=== PATIENT | male | born 1995 | race Native Hawaiian/Other Pacific Islander ===

== ENCOUNTER → 2017-12-23 14:49 | Outpatient (CLI) | payer OTHER, SELFPAY ==
[2017-12-23 15:34] LABS: Hemoglobin A1C% w Est Avg Glu 5.2 % (4.0-6.0)
[2017-12-23 15:46] LABS: Alanine Aminotransferase 49 IU/L (21-72); Albumin 4.7 g/dL (3.5-5.0); Albumin Globulin Ratio 1.6 (1.0-2.8); Alkaline Phosphatase 61 U/L (38-126); Aspartate Aminotransferase 45 IU/L (17-59); Bilirubin Total 0.9 mg/dL (0.2-1.3); Blood Urea Nitrogen 12 mg/dL (9-20); Calcium 9.6 mg/dL (8.4-10.2); Carbon Dioxide 27 mmol/L (22-32); Chloride 103 mmol/L (98-107); Cholesterol 183 mg/dL (140-199); Estimated Glomerular Filt Rate > 60.0 mL/min (>60); Glucose 114 mg/dL (70-100); HDL Cholesterol 39 mg/dL (40-60); HEMOLYSIS 18 (0-50); Potassium 4.5 mmol/L (3.4-5.1); Sodium 143 mmol/L (137-145); Total Protein 7.7 g/dL (6.3-8.2)
[2017-12-23 15:53] LABS: Triglycerides 604 mg/dL (35-150)
[2017-12-23 16:16] LABS: Thyroid Stimulating Hormone 1.66 uIU/mL (0.47-4.68)
[2017-12-23 17:50] LABS: Creatinine Urine Random 231.8 mg/dL
[2017-12-23 17:54] LABS: Microalbumi Creatinin Ratio Ur 12.9 ug/mg CR (<30)
== END ==
PROVIDERS: PCP Family Medicine; Visit Provider Registered Nurse
DX: I10 Essential (primary) hypertension (principal); E66.9 Obesity, unspecified
CPT/HCPCS: 36415; 80053; 80061; 82043; 82570; 83036; 84443

== ENCOUNTER 2018-02-21 13:00 | Emergency (ER) | payer OTHER, SELFPAY ==
[2018-02-21 13:46] VITALS: BP 140/92; PULSE 90; RESP 14; TEMP 36.9; O2SAT 99; BMI 36.8
--- NOTE | 2018-02-21 13:49 | DI.RAD.S_ITS ---
PROCEDURE: XR FOOT LT MIN 3V INDICATIONS: atraumatic left foot pain. TECHNIQUE: 3 views of the foot were acquired. COMPARISON: None. FINDINGS: Bones: No fractures or dislocations. No suspicious bony lesions. Soft tissues: No tibiotalar joint effusion. Achilles tendon appears normal. IMPRESSION: No acute fracture. No osseous lesion. If symptoms and/or clinical suspicion for pathology persist, further assessment with repeat, or advanced imaging (e.g., CT, MRI, or bone scan) may be helpful for further assessment. Dictated by: Jarad Lee M.D. on 02/21/2018 at 14:12 Approved by: Jarad Lee M.D. on 02/21/2018 at 14:13
--- NOTE | 2018-02-21 14:11 | PC.NURSE ---
worsening lt dorsal foot pain worse with weight bearing or dorsal flexion distal cms itnact mild swelling without erythema/tenderness denies injury
--- NOTE | 2018-02-21 14:29 | ED.EXTPRO ---
HPI - Extremity Problem <Twila Najera PA-C - Last Filed: 02/21/18 20:45> General Chief complaint: Extremity Problem,Nontraumatic Stated complaint: SWOLLEN LEFT FOOT Time Seen by Provider: 02/21/18 14:19 Source: patient Mode of arrival: ambulatory Limitations: no limitations History of Present Illness HPI Narrative: This 22-year-old male complains of left foot pain after spending more than usual time on a ladder. He does this routinely, states for the last few weeks he has been spending more time there and tends to stand or hang from that foot. He denies any acute injury, fall, or specific work related injury, but pain has been worse for the last couple of days, not improved with Tylenol. He denies any other pain or other complaints today. Related Data Home Medications Medication Instructions Recorded Confirmed No Known Home Medications 02/21/18 02/21/18 Allergies Allergy/AdvReac Type Severity Reaction Status Date / Time No Known Drug Allergies Allergy Verified 02/21/18 13:49 Review of Systems <Twila Najera PA-C - Last Filed: 02/21/18 20:45> Review of Systems All systems reviewed & are unremarkable except as noted in HPI and below Exam <Twila Najera PA-C - Last Filed: 02/21/18 20:45> Narrative Exam Narrative: GENERAL APPEARANCE: Patient sitting comfortably, in no distress. LUNGS: Clear to auscultation bilaterally. HEART: Rate and rhythm regular without murmur, normal S1 and S2, no S3 or S4. EXTREMITIES: No cyanosis, no edema, no left calf tenderness MUSCULOSKELETAL: No clear effusion. No tenderness over the left foot toes or metatarsal bones. No tenderness on the plantar surface of the foot. He has tenderness just anterior and distal to the lateral malleolus, no tenderness over the ankle joint itself, Achilles is intact by palpation. Full range of motion of the left ankle and toes nonweightbearing NEUROVASCULAR: Sensation is grossly intact bilateral feet, pedal pulses 2+ Initial Vital Signs Initial Vital Signs: Vital Signs Temperature 98.5 F 02/21/18 13:46 Pulse Rate 90 02/21/18 13:46 Respiratory Rate 14 02/21/18 13:46 Blood Pressure 140/92 H 02/21/18 13:46 Pulse Oximetry 99 02/21/18 13:46 <Tiffany Arroyo DO - Last Filed: 02/22/18 08:09> Initial Vital Signs Initial Vital Signs: Vital Signs Temperature 98.5 F 02/21/18 13:46 Pulse Rate 90 02/21/18 13:46 Respiratory Rate 14 02/21/18 13:46 Blood Pressure 140/92 H 02/21/18 13:46 Pulse Oximetry 99 02/21/18 13:46 Course <Twila Najera PA-C - Last Filed: 02/21/18 20:45> Orders Ordered: ED Orders 02/21/18 13:49 XR foot LT min 3V Stat Vital Signs - 8 hr 02/21/18 13:46 Temperature 98.5 F Pulse Rate 90 Respiratory Rate 14 Blood Pressure 140/92 H Pulse Oximetry 99 <Tiffany Arroyo DO - Last Filed: 02/22/18 08:09> Orders Ordered: ED Orders 02/21/18 13:49 XR foot LT min 3V Stat Vital Signs - 8 hr 02/21/18 13:46 Temperature 98.5 F Pulse Rate 90 Respiratory Rate 14 Blood Pressure 140/92 H Pulse Oximetry 99 MDM - Extremity (Nontraumatic) <ZAC Mistry Last Filed: 02/21/18 20:45> Imaging Data foot: Radiologist's impression: View Report History [address] [address] XRay Report Signed Patient: Siva Roberts MR#: [id number] : 1995 Acct:[id number] Age/Sex: 22 / M Date of Service: 02/21/18 Loc: ED Accession Number: [id number] Procedure: XR foot LT min 3V Ordering Provider: Tiffany Arroyo D.O. PROCEDURE: XR FOOT LT MIN 3V INDICATIONS: atraumatic left foot pain. TECHNIQUE: 3 views of the foot were acquired. COMPARISON: None. FINDINGS: Bones: No fractures or dislocations. No suspicious bony lesions. Soft tissues: No tibiotalar joint effusion. Achilles tendon appears normal. IMPRESSION: No acute fracture. No osseous lesion. If symptoms and/or clinical suspicion for pathology persist, further assessment with repeat, or advanced imaging (e.g., CT, MRI, or bone scan) may be helpful for further assessment. Dictated by: Jarad Lee M.D. on 02/21/2018 at 14:12 Approved by: Jarad Lee M.D. on 02/21/2018 at 14:13 Discharge Plan Departure Patient Disposition: Home Clinical Impression: Repetitive strain injury of left foot Discharge Date/Time: 02/21/18 15:03 Interventions: ED Discharge Assessment Last Done: 02/21/18 15:03 Instructions: DI for Foot Sprain Activity Restrictions/Additional Instructions: Please rest your foot, gentle walking is okay as tolerated that stay off of the ladder. Wear a supportive shoe. Take ibuprofen 600-800 mg every 8 hr and you can also use ice and Tylenol in addition as needed. Since you need to stay off of work, please follow-up with your PCP this week so that you can get a referral to Podiatry if needed. Your x-ray did not show any acute fracture today, but you should return if you have acutely worsening symptoms or new symptoms such as fever with this pain Prescriptions: No Action No Known Home Medications RF: 0 Referrals: Lenny Roy MD [Primary Care Provider] - Stand Alone Forms: Work Release Note <Tiffany Arroyo DO - Last Filed: 02/22/18 08:09> Cosign ED Attending Davidature Attestation: I was immediately available in the department for consultation. Documentation has been reviewed. I agree with assessment and plan.
== END 2018-02-21 15:03 | disposition home or self-care (01) ==
PROVIDERS: Emergency Provider Internal Medicine; PCP Family Medicine
DX: S96.912A Strain of unspecified muscle and tendon at ankle and foot level, left foot, initial encounter (principal); X50.1XXA Overexertion from prolonged static or awkward postures, initial encounter
CPT/HCPCS: 73630; 99282; 99283

== ENCOUNTER 2018-02-26 22:15 | Emergency (ER) | payer OTHER, SELFPAY ==
[2018-02-26 22:39] VITALS: BP 143/96; PULSE 88; RESP 15; TEMP 36.6; O2SAT 98; BMI 35.7
--- NOTE | 2018-02-26 23:21 | DI.RAD.S_ITS ---
PROCEDURE: XR ANKLE LT MIN 3V INDICATIONS: deformity cant flex, injury 1 week ago TECHNIQUE: 3 views of the ankle were acquired. COMPARISON: [facility], CR, XR FOOT LT MIN 3V, 02/26/2018, 23:33. FINDINGS: Bones: No fractures or dislocations. Ankle mortise is normally aligned. No suspicious bony lesions. Soft tissues: No tibiotalar joint effusion. Achilles tendon appears normal. IMPRESSION: No fracture or dislocation. Dictated by: Estefanía Antony M.D. on 02/27/2018 at 7:33 Approved by: Estefanía Antony M.D. on 02/27/2018 at 7:33
--- NOTE | 2018-02-26 23:21 | DI.RAD.S_ITS ---
PROCEDURE: XR FOOT LT MIN 3V INDICATIONS: persistant pain TECHNIQUE: 3 views of the foot were acquired. COMPARISON: [facility], , XR FOOT LT MIN 3V, 02/21/2018, 13:52. FINDINGS: Bones: No fractures or dislocations. No suspicious bony lesions. Soft tissues: No tibiotalar joint effusion. Achilles tendon appears normal. IMPRESSION: No fracture or dislocation. Dictated by: Estefanía Antony M.D. on 02/27/2018 at 7:31 Approved by: Estefanía Antony M.D. on 02/27/2018 at 7:32
[2018-02-27] MEDS: KETOROLAC 60 MG/2 ML VIAL IM (00:15)
--- NOTE | 2018-02-27 00:25 | ED_ITS ---
HPI - Extremity Problem General Chief complaint: Extremity Problem,Nontraumatic Stated complaint: LEFT FOOT SWELLING Time Seen by Provider: 02/26/18 23:12 Source: patient Mode of arrival: ambulatory Limitations: no limitations History of Present Illness HPI Narrative: Patient is a 22-year-old male who presents with left foot and ankle pain. He says he fell 2 weeks ago off a ladder landing on his back he did not injure his but in fact he was walking on his feet afterwards. His back seems to have healed he has no pain. Who is actually here on the as for the same left foot complaint. The time x-rays were negative. He denies any further injury since then but he is unable to plantar flex. He has pain along his Achilles tendon no numbness or tingling. He has had Achilles tendonitis in the past MD Complaint: extremity pain Location: left Related Data Previous Rx's Medication Instructions Recorded hydrocodone-acetaminophen [[place]] 1 tab PO Q4-6H PRN #10 tab 02/27/18 naproxen [Naprosyn] 500 mg PO BID #30 tab 02/27/18 Allergies Allergy/AdvReac Type Severity Reaction Status Date / Time No Known Drug Allergies Allergy Verified 02/21/18 13:49 Review of Systems Review of Systems All systems reviewed & are unremarkable except as noted in HPI and below Constitutional Denies chills, Denies fever(s), Denies lethargy and Denies weakness Cardiovascular Denies chest pain and Denies dyspnea Respiratory Denies dyspnea and Denies wheezing Gastrointestinal Gastrointestinal: Denies abdominal pain, Denies diarrhea and Denies nausea Musculoskeletal Reports as per HPI, Denies back pain, Reports deformity and Reports joint swelling Integumentary/Breasts Denies pruritus, Denies erythema, Denies rash and Denies wounds Neurologic Denies weakness Allergic/Immunologic Denies wheezing PFSH Surgical History Anesthesia (Resolved) History of orthopedic surgery (Resolved) History of tonsillectomy (Resolved) Family History Father Age: 48 Hypertension Grandfather Cancer Hypertension High cholesterol Grandmother Age: 72 Heart disease Hypertension High cholesterol Diabetes mellitus Sister Age: 29 Mental health problem Grandfather No problems noted. Grandmother No problems noted. Mother No problems noted. Sister No problems noted. Social History Smoking Status: Current every day smoker Exam Initial Vital Signs Initial Vital Signs: Vital Signs Temperature 97.8 F 02/26/18 22:39 Pulse Rate 88 02/26/18 22:39 Respiratory Rate 15 02/26/18 22:39 Blood Pressure 143/96 H 02/26/18 22:39 Pulse Oximetry 98 12 22:39 GENERAL: Well-appearing, well-nourished and in no acute distress. CARDIOVASCULAR: peripheral pulses in tact, cap refill <2 sec RESPIRATORY: No respiratory distress, speaks in full sentences without difficulty EXTREMITIES: Normal range of motion, no clubbing or edema. Neurovascularly intact NEUROLOGICAL: Cranial nerves II through XII grossly intact. Normal gait and speech. SKIN: Warm, dry, no petechiae, no rashes or lesions. Extrem Right upper extremity: normal to inspection Left upper extremity: normal to inspection Right lower extremity: normal to inspection Left lower extremity: knee Details: normal to inspection, lower leg (No calf tenderness) Details: normal to inspection; no erythema and no tenderness and foot Details: normal capillary refill, tenderness, toes with normal ROM, tendon exam (Ft held and plantar flexion on able to dorsiflex. Able to move big toe against resistance) and motor-sensory exam (Foot held and plantar flexion unable to dorsiflex. ) Course Orders Ordered: ED Orders 02/26/18 23:21 XR ankle LT min 3V Stat XR foot LT min 3V Stat Discontinued Medications Hydrocodone Bitart/Acetaminophen (Vicodin Prepack) 1 bottle MISC SEEINSTR ONE Stop: 02/27/18 00:37 Last Admin: 02/27/18 00:42 Dose: 1 bottle Ketorolac Tromethamine (Toradol) 60 mg IM NOW ONE Stop: 02/27/18 00:09 Last Admin: 02/27/18 00:15 Dose: 60 mg Vital Signs - 8 hr 02/26/18 22:39 02/27/18 00:48 Temperature 97.8 F Pulse Rate 88 81 Respiratory Rate 15 18 Blood Pressure 143/96 H Blood Pressure [Right Arm] 145/93 H Pulse Oximetry 98 98 MDM - Extremity (Nontraumatic) Imaging Data Left foot x-ray: Attestation: I personally reviewed and interpreted this imaging study as follows: My impression: No fracture dislocation Left ankle x-ray: Attestation: I personally reviewed and interpreted this imaging study as follows: My impression: No fracture dislocation MDM Narrative Medical decision making narrative: The patient is extremely tender over his Achilles although his Achilles does feel intact. This is consistent with Achilles tendinitis. His he is placed in a walking boot. It is painful but he is able to do so. At this time recommended outpatient follow-up. Discharge Plan Departure Patient Disposition: Home Clinical Impression: Left Achilles tendinitis, Foot drop, left Discharge Date/Time: 02/27/18 01:02 Interventions: ED Discharge Assessment Last Done: 02/27/18 01:01 Instructions: Achilles Tendinopathy Activity Restrictions/Additional Instructions: *You have been diagnosed with left Achilles tendinitis *What to do: Where left boot to help prevent footdrop, may require orthopedic referral *Continue to take medications as directed [place] 1 tablet every 4 hr or 2 tablets every 6 hr if needed for severe pain Naproxen 500 mg twice a day with food for inflammation *Follow up with your primary care provider in 2-3 days *Return to ER if you should have increasing pain, inability to walk, numbness or tingling or any new, worsening or concerning symptoms Prescriptions: New hydrocodone-acetaminophen [[place]] 5-325 mg tablet 1 tab PO Q4-6H PRN (Reason: pain) Qty: 10 RF: 0 naproxen [Naprosyn] 500 mg tablet 500 mg PO BID Qty: 30 RF: 0 Referrals: Lenny Roy MD [Primary Care Provider] -
[2018-02-27] MEDS: HYDROCODONE/ACET 5/325 PREPACK 1 BOTTLE MISC (00:42)
[2018-02-27 00:48] VITALS: BP 145/93; PULSE 81; RESP 18; O2SAT 98
== END 2018-02-27 01:02 | disposition home or self-care (01) ==
PROVIDERS: Emergency Provider Emergency Medicine; PCP Family Medicine
DX: M76.62 Achilles tendinitis, left leg (principal)
CPT/HCPCS: 73610; 73630; 96372; 99283; J1885

== ENCOUNTER 2018-05-08 19:07 | Emergency (ER) | payer OTHER, SELFPAY ==
[2018-05-08 19:22] VITALS: BP 143/94; PULSE 98; RESP 18; TEMP 36.8; O2SAT 98; BMI 34.7
--- NOTE | 2018-05-08 20:03 | ED.LOWEXIN ---
HPI - Extremity Injury (Lower) <Twila Najera PA-C - Last Filed: 05/08/18 21:55> General Chief Complaint: Extremity Injury, Lower Stated Complaint: PAIN LEFT FOOT NO FLEX Time Seen by Provider: 05/08/18 20:03 Source: patient Mode of arrival: ambulatory Limitations: no limitations History of Present Illness HPI Narrative: This 22-year-old male returns to ED for what he states is occurrence of left Achilles pain. He states that he did wear walking boot after he was last seen here but did not follow up with his PCP. He felt like the Achilles pain gradually got better. He states on Wednesday he stopped and kicked a roof shingle with the back of his heel, did not notice any injury at the time but when he woke up yesterday it was very painful to move. He states he started wearing his walking boot again, able to walk with that but still very painful. He took some ibuprofen yesterday. He has not taken any pain medication today. He denies any weakness or numbness or pain elsewhere in the foot or ankle. He denies any other complaints today. Related Data Previous Rx's Medication Instructions Recorded hydrocodone-acetaminophen [[place]] 1 tab PO Q4-6H PRN #10 tab 02/27/18 naproxen [Naprosyn] 500 mg PO BID #30 tab 02/27/18 lidocaine [Lidoderm] 1 patch TOP DAILY #30 each 05/08/18 meloxicam [Mobic] 15 mg PO DAILY #20 tab 05/08/18 Allergies Allergy/AdvReac Type Severity Reaction Status Date / Time No Known Drug Allergies Allergy Verified 05/08/18 19:28 Review of Systems <Twila Najera PA-C - Last Filed: 05/08/18 21:55> Review of Systems ROS Unobtainable: All systems reviewed & are unremarkable except as noted in HPI and below PFSH <Twila Najera PA-C - Last Filed: 05/08/18 21:55> Surgical History Anesthesia (Resolved) History of orthopedic surgery (Resolved) History of tonsillectomy (Resolved) Family History Father Age: 48 Hypertension Grandfather Cancer Hypertension High cholesterol Grandmother Age: 72 Heart disease Hypertension High cholesterol Diabetes mellitus Sister Age: 29 Mental health problem Grandfather No problems noted. Grandmother No problems noted. Mother No problems noted. Sister No problems noted. Social History Smoking Status: Former smoker Family History Father Age: 48 Hypertension Grandfather Cancer Hypertension High cholesterol Grandmother Age: 72 Heart disease Hypertension High cholesterol Diabetes mellitus Sister Age: 29 Mental health problem Grandfather No problems noted. Grandmother No problems noted. Mother No problems noted. Sister No problems noted. Social History Smoking Status: Former smoker Exam <Twila Najera PA-C - Last Filed: 05/08/18 21:55> Narrative Exam Narrative: GENERAL APPEARANCE: Patient sitting comfortably, in no distress. LUNGS: Clear to auscultation bilaterally. HEART: Rate and rhythm regular without murmur, normal S1 and S2, no S3 or S4. EXTREMITIES: No cyanosis, no edema, no left calf tenderness MUSCULOSKELETAL: No L. foot/ankle effusion. No tenderness over the left foot toes or metatarsal bones. No tenderness over the left inferior heel or foot. He is exquisitely tender over the left Achilles which is intact by palpation. He is able to plantar flex and dorsiflex the toes with full strength against resistance. On active range of motion he has slightly reduced plantar flexion and dorsiflexion secondary to tenderness. NEUROVASCULAR: Sensation is grossly intact bilateral feet, pedal pulses 2+ Initial Vital Signs Initial Vital Signs: Vital Signs Temperature 98.3 F 05/08/18 19:22 Pulse Rate 98 H 05/08/18 19:22 Respiratory Rate 18 05/08/18 19:22 Blood Pressure 143/94 H 05/08/18 19:22 Pulse Oximetry 98 05/08/18 19:22 <Tristan Montanez DO - Last Filed: 05/09/18 01:32> Initial Vital Signs Initial Vital Signs: Vital Signs Temperature 98.3 F 05/08/18 19:22 Pulse Rate 98 H 05/08/18 19:22 Respiratory Rate 18 05/08/18 19:22 Blood Pressure 143/94 H 05/08/18 19:22 Pulse Oximetry 98 05/08/18 19:22 Course <Twila Najera PA-C - Last Filed: 05/08/18 21:55> Orders Ordered: We discussed doing repeat x-rays tonight, though his Achilles is intact by palpation and no other clear injury we did talk about doing this to rule out other fracture such as calcaneus fracture. He declined due to pain of doing x-rays. He did not follow up with his PCP after last injury, and advised given the chronicity of this, he needs follow-up and possible podiatry orthopedics referral. He is agreeable. He will remain off of work for the next few days until he is able to see his PCP. He agrees to use his walking boot. Meloxicam and Lidoderm patches prescribed and he will pick those up tomorrow. Vital Signs - 8 hr 05/08/18 19:22 05/08/18 20:42 Temperature 98.3 F 97.9 F Pulse Rate 98 H 88 Respiratory Rate 18 16 Blood Pressure 143/94 H 128/82 Pulse Oximetry 98 100 <Tristan Montanez DO - Last Filed: 05/09/18 01:32> Vital Signs - 8 hr 05/08/18 19:22 05/08/18 20:42 Temperature 98.3 F 97.9 F Pulse Rate 98 H 88 Respiratory Rate 18 16 Blood Pressure 143/94 H 128/82 Pulse Oximetry 98 100 Discharge Plan Departure Patient Disposition: Home Clinical Impression: Achilles tendon disorder Qualifiers: Laterality: left Qualified Code(s): M67.972 - Unspecified disorder of synovium and tendon, left ankle and foot Discharge Date/Time: 05/08/18 20:42 Interventions: ED Discharge Assessment Last Done: 05/08/18 20:42 Instructions: DI for Achilles Tendinopathy Activity Restrictions/Additional Instructions: please return as we talked about if you have acutely worsening symptoms. Since you do not want to repeat x-rays today, please take 800 mg of ibuprofen when you return home and every 8 hr. 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 Wear the walking boot at all times when you are on your feet. you need to follow up with your PCP office in the next few days for recheck and determine whether a referral to Podiatry may be helpful as this may need to be done by their office, and also determine how much longer you may need to remain off of work. Prescriptions: New meloxicam [Mobic] 15 mg tablet 15 mg PO DAILY Qty: 20 RF: 0 lidocaine [Lidoderm] 5 % adhesive patch,medicated 1 patch TOP DAILY Qty: 30 RF: 0 No Action hydrocodone-acetaminophen [[place]] 5-325 mg tablet 1 tab PO Q4-6H PRN (Reason: pain) Qty: 10 RF: 0 naproxen [Naprosyn] 500 mg tablet 500 mg PO BID Qty: 30 RF: 0 Referrals: Lenny Roy MD [Primary Care Provider] - Stand Alone Forms: Work Release Note <Tristan Montanez DO - Last Filed: 05/09/18 01:32> Cosign ED Attending Davidature Attestation: I was immediately available in the department for consultation. Documentation has been reviewed. I agree with assessment and plan.
[2018-05-08 20:42] VITALS: BP 128/82; PULSE 88; RESP 16; TEMP 36.6; O2SAT 100
== END 2018-05-08 20:42 | disposition home or self-care (01) ==
PROVIDERS: Emergency Provider Internal Medicine; PCP Family Medicine
DX: M67.972 Unspecified disorder of synovium and tendon, left ankle and foot (principal)
CPT/HCPCS: 99282

== ENCOUNTER 2018-07-27 12:47 | Emergency (ER) | payer OTHER, SELFPAY ==
--- NOTE | 2018-07-27 12:59 | DI.RAD.S_ITS ---
PROCEDURE: XR ANKLE RT MIN 3V INDICATIONS: swelling pain TECHNIQUE: 3 views of the ankle were acquired. COMPARISON: None. FINDINGS: Bones: No fractures or dislocations. Ankle mortise is normally aligned. No suspicious bony lesions. Mild periarticular osteophyte formation at the ankle joint. Soft tissues: No tibiotalar joint effusion. Achilles tendon appears normal. IMPRESSION: Mild talonavicular joint osteoarthritis. No acute fracture. No osseous lesion. If symptoms and/or clinical suspicion for pathology persist, further assessment with repeat, or advanced imaging (e.g., CT, MRI, or bone scan) may be helpful for further assessment. Dictated by: Jarad Lee M.D. on 07/27/2018 at 13:31 Approved by: Jarad Lee M.D. on 07/27/2018 at 13:32
[2018-07-27 13:00] VITALS: BP 164/99; PULSE 83; RESP 16; TEMP 37.5; O2SAT 99; BMI 35.7
--- NOTE | 2018-07-27 13:09 | ED.LOWEXIN ---
HPI - Extremity Injury (Lower) <CORNELIUS Mathew - Last Filed: 07/27/18 14:30> General Chief Complaint: Extremity Injury, Lower Stated Complaint: thinks he sprained his right ankle Time Seen by Provider: 07/27/18 12:58 Source: patient and family Mode of arrival: wheelchair Limitations: no limitations History of Present Illness HPI Narrative: The patient is a 23-year-old male former smoker with history of hearing impaired a presents with chief complaint of a right ankle injury. He states he was carrying 2 by 4s yesterday and misstepped rolled his ankle inwards. He states he has history of chronic sprains on his right ankle. He has not taken any Tylenol or ibuprofen for pain. He applied ice this morning. He states that his ankle did not her yesterday, but this morning it hurts. He denies any numbness or tingling. He denies any other injury from the incident. Related Data Home Medications Medication Instructions Recorded Confirmed No Known Home Medications 07/27/18 07/27/18 Allergies Allergy/AdvReac Type Severity Reaction Status Date / Time No Known Drug Allergies Allergy Verified 07/27/18 13:00 Review of Systems <CORNELIUS Mathew - Last Filed: 07/27/18 14:30> Review of Systems GENERAL: Denies chills, fatigue, malaise, fever, sweats. HEENT: Denies sinus pain, ear pain, sore throat, difficulty swallowing, dizziness. RESPIRATORY: Denies dyspnea, cough, wheezing, hemoptysis, sputum. CARDIOVASCULAR: Denies chest pain, palpitations, orthopnea, edema, GASTROINTESTINAL: Denies nausea, vomiting, abdominal pain, diarrhea, constipation, melena. : Denies dysuria, frequency, incontinence, hematuria, urinary retention. MUSCULOSKELETAL: See HPI SKIN: See HPI NEUROLOGIC: Denies weakness, headache, numbness, change in speech, confusion, seizures, incoordination. PSYCHIATRIC: No concerning psychosocial issues. 12 point review of systems is negative except for those stated above PFSH <CORNELIUS Mathew - Last Filed: 07/27/18 14:30> Medical History Asthma (Chronic 2004) Eczema (Chronic 1997) Hearing loss (Chronic 1997) Fractures (Resolved 2009) Surgical History Anesthesia (Resolved) History of orthopedic surgery (Resolved) History of tonsillectomy (Resolved) Family History Father Age: 49 Hypertension Grandfather Cancer Hypertension High cholesterol Grandmother Age: 73 Heart disease Hypertension High cholesterol Diabetes mellitus Sister Age: 30 Mental health problem Grandfather No problems noted. Grandmother No problems noted. Mother No problems noted. Sister No problems noted. Social History Smoking Status: Former smoker Family History Father Age: 49 Hypertension Grandfather Cancer Hypertension High cholesterol Grandmother Age: 73 Heart disease Hypertension High cholesterol Diabetes mellitus Sister Age: 30 Mental health problem Grandfather No problems noted. Grandmother No problems noted. Mother No problems noted. Sister No problems noted. Social History Smoking Status: Former smoker Exam <CORNELIUS Mathew - Last Filed: 07/27/18 14:30> Narrative Exam Narrative: GENERAL: This is a well-nourished, well-developed patient, no acute distress HEAD: Atraumatic. Normocephalic. No temporal or scalp tenderness. EYES: Pupils equal round and reactive. Extraocular motions intact. No scleral icterus. No injection or drainage. NECK: Trachea midline. No JVD or lymphadenopathy. Supple, nontender, no meningeal signs. CARDIOVASCULAR: Regular rate and rhythm RESPIRATORY: No cough. No increased respiratory effort. No accessory muscle use. EXTREMITIES: Pain to palpation medial malleolus right ankle. Positive pedal pulses right foot. Is able to extend right ankle, difficulty flexing right ankle due to pain. NEURO: AOx3. SKIN: No rash erythema ecchymosis noted right ankle. Slight swelling noted medial aspect right ankle. Initial Vital Signs Initial Vital Signs: Vital Signs Temperature 99.5 F 07/27/18 13:00 Pulse Rate 83 07/27/18 13:00 Respiratory Rate 16 07/27/18 13:00 Blood Pressure 164/99 H 07/27/18 13:00 Pulse Oximetry 99 07/27/18 13:00 <DO Leslie Mars Last Filed: 07/29/18 07:31> Initial Vital Signs Initial Vital Signs: Vital Signs Temperature 99.5 F 07/27/18 13:00 Pulse Rate 83 07/27/18 13:00 Respiratory Rate 16 07/27/18 13:00 Blood Pressure 164/99 H 07/27/18 13:00 Pulse Oximetry 99 07/27/18 13:00 Procedures <CORNELIUS Mathew - Last Filed: 07/27/18 14:30> Orthopedic Splinting/Casting Injury #1: Side: right Lower Extremity Injury Location: ankle Lower Extremity Immobilizer: stirrup splint Other Orthopedic Equipment: crutches Post splinting neuro exam: intact Post splinting vascular exam: intact Placed by: Nursing Course <CORNELIUS Mathew - Last Filed: 07/27/18 14:30> Orders Ordered: Discontinued Medications Ketorolac Tromethamine (Toradol) 60 mg IM NOW ONE Stop: 07/27/18 13:08 Last Admin: 07/27/18 13:29 Dose: 60 mg Vital Signs - 8 hr 07/27/18 13:00 Temperature 99.5 F Pulse Rate 83 Respiratory Rate 16 Blood Pressure 164/99 H Pulse Oximetry 99 <Mayra Chang DO - Last Filed: 07/29/18 07:31> Orders Ordered: Discontinued Medications Ketorolac Tromethamine (Toradol) 60 mg IM NOW ONE Stop: 07/27/18 13:08 Last Admin: 07/27/18 13:29 Dose: 60 mg Vital Signs - 8 hr 07/27/18 13:00 Temperature 99.5 F Pulse Rate 83 Respiratory Rate 16 Blood Pressure 164/99 H Pulse Oximetry 99 MDM - Extremity Injury (Lower) <CORNELIUS Mathew - Last Filed: 07/27/18 14:30> Imaging Data ankle xray : Radiologist's impression: Siva Roberts 23 M [address] [address] XRay Report Signed Patient: Siva Roberts [facility]#: [id number] : 1995Acct:[id number] Age/Sex: te of Service: 07/27/18 Loc: ED Accession Number: [id number] Procedure: XR ankle RT min 3V Ordering Provider: Mayra Carlson PROCEDURE: XR ANKLE RT MIN 3V INDICATIONS: swelling pain TECHNIQUE: 3 views of the ankle were acquired. COMPARISON: None. FINDINGS: Bones: No fractures or dislocations. Ankle mortise is normally aligned. No suspicious bony lesions. Mild periarticular osteophyte formation at the ankle joint. Soft tissues: No tibiotalar joint effusion. Achilles tendon appears normal. IMPRESSION: Mild talonavicular joint osteoarthritis. No acute fracture. No osseous lesion. If symptoms and/or clinical suspicion for pathology persist, further assessment with repeat, or advanced imaging (e.g., CT, MRI, or bone scan) may be helpful for further assessment. Dictated by: Jarad Lee M.D. on 07/27/2018 at 13:31 Approved by: Jarad Lee M.D. on 07/27/2018 at 13:32 [facility] Narrative Medical decision making narrative: The patient is a 23-year-old male who presents with chief complaint of ankle pain. He says that he rolled it and while he was carrying a heavy load at work. He was able to ambulate yesterday, but not as much today. He has not taken anything for pain. He has a negative x-ray. He is able to extend his ankle, but ambulating causes pain so he is placed in Aircast as well as crutches pain I discussed at length rest ice compression elevation as well as [id number] pain medications as needed and able. Encouraged patient to follow up with primary care provider. 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 Patient states understanding as no questions or concerns upon discharge Discharge Plan Departure Patient Disposition: Home Clinical Impression: Ankle sprain and strain Discharge Date/Time: 07/27/18 14:31 Interventions: ED Discharge Assessment Last Done: 07/27/18 14:30 Instructions: DI for Ankle Sprain, How To Perform RICE (Rest, Ice, Compress, Elevate), DI for Ankle Pain Activity Restrictions/Additional Instructions: Your ankle x-ray shows no fracture today. Please use rest ice compression elevation as well as [id number] pain medications as needed and able. I have given you a few days off of work as I do not want you on roofs wearing an ankle brace. Please follow up with you primary care provider soon as possible. Please come back to the emergency department for any acute concerns. Prescriptions: No Action No Known Home Medications RF: 0 Referrals: Lenny Roy MD [Primary Care Provider] - Stand Alone Forms: Work Release Note <Mayra Chang DO - Last Filed: 07/29/18 07:31> Cosign ED Attending Cosignature Attestation: I was immediately available in the department for consultation. This documentation has been reviewed and I agree with assessment and plan. Supervised by Mayra Chang DO
--- NOTE | 2018-07-27 13:12 | ED_ITS ---
HPI - Extremity Injury (Lower) <CORNELIUS Mathew - Last Filed: 07/27/18 14:30> General Chief Complaint: Extremity Injury, Lower Stated Complaint: thinks he sprained his right ankle Time Seen by Provider: 07/27/18 12:58 Source: patient and family Mode of arrival: wheelchair Limitations: no limitations History of Present Illness HPI Narrative: The patient is a 23-year-old male former smoker with history of hearing impaired a presents with chief complaint of a right ankle injury. He states he was carrying 2 by 4s yesterday and misstepped rolled his ankle inwards. He states he has history of chronic sprains on his right ankle. He has not taken any Tylenol or ibuprofen for pain. He applied ice this morning. He states that his ankle did not her yesterday, but this morning it hurts. He denies any numbness or tingling. He denies any other injury from the incident. Related Data Home Medications Medication Instructions Recorded Confirmed No Known Home Medications 07/27/18 07/27/18 Allergies Allergy/AdvReac Type Severity Reaction Status Date / Time No Known Drug Allergies Allergy Verified 07/27/18 13:00 Review of Systems <CORNELIUS Mathew - Last Filed: 07/27/18 14:30> Review of Systems GENERAL: Denies chills, fatigue, malaise, fever, sweats. HEENT: Denies sinus pain, ear pain, sore throat, difficulty swallowing, dizziness. RESPIRATORY: Denies dyspnea, cough, wheezing, hemoptysis, sputum. CARDIOVASCULAR: Denies chest pain, palpitations, orthopnea, edema, GASTROINTESTINAL: Denies nausea, vomiting, abdominal pain, diarrhea, constipation, melena. : Denies dysuria, frequency, incontinence, hematuria, urinary retention. MUSCULOSKELETAL: See HPI SKIN: See HPI NEUROLOGIC: Denies weakness, headache, numbness, change in speech, confusion, seizures, incoordination. PSYCHIATRIC: No concerning psychosocial issues. 12 point review of systems is negative except for those stated above PFSH <CORENLIUS Mathew - Last Filed: 07/27/18 14:30> Medical History Asthma (Chronic 2004) Eczema (Chronic 1997) Hearing loss (Chronic 1997) Fractures (Resolved 2009) Surgical History Anesthesia (Resolved) History of orthopedic surgery (Resolved) History of tonsillectomy (Resolved) Family History Father Age: 49 Hypertension Grandfather Cancer Hypertension High cholesterol Grandmother Age: 73 Heart disease Hypertension High cholesterol Diabetes mellitus Sister Age: 30 Mental health problem Grandfather No problems noted. Grandmother No problems noted. Mother No problems noted. Sister No problems noted. Social History Smoking Status: Former smoker Family History Father Age: 49 Hypertension Grandfather Cancer Hypertension High cholesterol Grandmother Age: 73 Heart disease Hypertension High cholesterol Diabetes mellitus Sister Age: 30 Mental health problem Grandfather No problems noted. Grandmother No problems noted. Mother No problems noted. Sister No problems noted. Social History Smoking Status: Former smoker Exam <CORNELIUS Mathew - Last Filed: 07/27/18 14:30> Narrative Exam Narrative: GENERAL: This is a well-nourished, well-developed patient, no acute distress HEAD: Atraumatic. Normocephalic. No temporal or scalp tenderness. EYES: Pupils equal round and reactive. Extraocular motions intact. No scleral icterus. No injection or drainage. NECK: Trachea midline. No JVD or lymphadenopathy. Supple, nontender, no meningeal signs. CARDIOVASCULAR: Regular rate and rhythm RESPIRATORY: No cough. No increased respiratory effort. No accessory muscle use. EXTREMITIES: Pain to palpation medial malleolus right ankle. Positive pedal pulses right foot. Is able to extend right ankle, difficulty flexing right ankle due to pain. NEURO: AOx3. SKIN: No rash erythema ecchymosis noted right ankle. Slight swelling noted medial aspect right ankle. Initial Vital Signs Initial Vital Signs: Vital Signs Temperature 99.5 F 07/27/18 13:00 Pulse Rate 83 07/27/18 13:00 Respiratory Rate 16 07/27/18 13:00 Blood Pressure 164/99 H 07/27/18 13:00 Pulse Oximetry 99 07/27/18 13:00 <DO Leslie Mars Last Filed: 07/29/18 07:31> Initial Vital Signs Initial Vital Signs: Vital Signs Temperature 99.5 F 07/27/18 13:00 Pulse Rate 83 07/27/18 13:00 Respiratory Rate 16 07/27/18 13:00 Blood Pressure 164/99 H 07/27/18 13:00 Pulse Oximetry 99 07/27/18 13:00 Procedures <CORNELIUS Mathew - Last Filed: 07/27/18 14:30> Orthopedic Splinting/Casting Injury #1: Side: right Lower Extremity Injury Location: ankle Lower Extremity Immobilizer: stirrup splint Other Orthopedic Equipment: crutches Post splinting neuro exam: intact Post splinting vascular exam: intact Placed by: Nursing Course <CORNELIUS Mathew - Last Filed: 07/27/18 14:30> Orders Ordered: Discontinued Medications Ketorolac Tromethamine (Toradol) 60 mg IM NOW ONE Stop: 07/27/18 13:08 Last Admin: 07/27/18 13:29 Dose: 60 mg Vital Signs - 8 hr 07/27/18 13:00 Temperature 99.5 F Pulse Rate 83 Respiratory Rate 16 Blood Pressure 164/99 H Pulse Oximetry 99 <Mayra Chang DO - Last Filed: 07/29/18 07:31> Orders Ordered: Discontinued Medications Ketorolac Tromethamine (Toradol) 60 mg IM NOW ONE Stop: 07/27/18 13:08 Last Admin: 07/27/18 13:29 Dose: 60 mg Vital Signs - 8 hr 07/27/18 13:00 Temperature 99.5 F Pulse Rate 83 Respiratory Rate 16 Blood Pressure 164/99 H Pulse Oximetry 99 MDM - Extremity Injury (Lower) <CORNELIUS Mathew - Last Filed: 07/27/18 14:30> Imaging Data ankle xray : Radiologist's impression: Siva Roberts 23 M [address] [address] XRay Report Signed Patient: Siva Roberts [facility]#: [id number] : 1995Acct:[id number] Age/Sex: te of Service: 07/27/18 Loc: ED Accession Number: [id number] Procedure: XR ankle RT min 3V Ordering Provider: Mayra Carlson PROCEDURE: XR ANKLE RT MIN 3V INDICATIONS: swelling pain TECHNIQUE: 3 views of the ankle were acquired. COMPARISON: None. FINDINGS: Bones: No fractures or dislocations. Ankle mortise is normally aligned. No suspicious bony lesions. Mild periarticular osteophyte formation at the ankle joint. Soft tissues: No tibiotalar joint effusion. Achilles tendon appears normal. IMPRESSION: Mild talonavicular joint osteoarthritis. No acute fracture. No osseous lesion. If symptoms and/or clinical suspicion for pathology persist, further assessment with repeat, or advanced imaging (e.g., CT, MRI, or bone scan) may be helpful for further assessment. Dictated by: Jarad Lee M.D. on 07/27/2018 at 13:31 Approved by: Jarad Lee M.D. on 07/27/2018 at 13:32 [facility] Narrative Medical decision making narrative: The patient is a 23-year-old male who presents with chief complaint of ankle pain. He says that he rolled it and while he was carrying a heavy load at work. He was able to ambulate yesterday, but not as much today. He has not taken anything for pain. He has a negative x-ray. He is able to extend his ankle, but ambulating causes pain so he is placed in Aircast as well as crutches pain I discussed at length rest ice compression elevation as well as [id number] pain medications as needed and able. Encouraged patient to follow up with primary care provider. 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 Patient states understanding as no questions or concerns upon discharge Discharge Plan Departure Patient Disposition: Home Clinical Impression: Ankle sprain and strain Discharge Date/Time: 07/27/18 14:31 Interventions: ED Discharge Assessment Last Done: 07/27/18 14:30 Instructions: DI for Ankle Sprain, How To Perform RICE (Rest, Ice, Compress, Elevate), DI for Ankle Pain Activity Restrictions/Additional Instructions: Your ankle x-ray shows no fracture today. Please use rest ice compression elevation as well as [id number] pain medications as needed and able. I have given you a few days off of work as I do not want you on roofs wearing an ankle brace. Please follow up with you primary care provider soon as possible. Please come back to the emergency department for any acute concerns. Prescriptions: No Action No Known Home Medications RF: 0 Referrals: Lenny Roy MD [Primary Care Provider] - Stand Alone Forms: Work Release Note <Mayra Chang DO - Last Filed: 07/29/18 07:31> Cosign ED Attending Cosignature Attestation: I was immediately available in the department for consultation. This documentation has been reviewed and I agree with assessment and plan. Supervised by Mayra Chang DO
[2018-07-27] MEDS: KETOROLAC 60 MG/2 ML VIAL IM (13:29)
[2018-07-27 14:30] VITALS: BP 150/101; PULSE 96; RESP 16; O2SAT 98
== END 2018-07-27 14:31 | disposition home or self-care (01) ==
PROVIDERS: Emergency Provider Nurse Practitioner Family; PCP Family Medicine
DX: S93.401A Sprain of unspecified ligament of right ankle, initial encounter (principal); Y99.0 Civilian activity done for income or pay
CPT/HCPCS: 29540; 73610; 96372; 99282; 99283; J1885

== ENCOUNTER 2019-06-14 00:23 | Emergency (ER) | payer OTHER, SELFPAY ==
[2019-06-14 00:30] VITALS: BP 177/103; PULSE 120; RESP 15; TEMP 36.6; O2SAT 99; BMI 35.7
--- NOTE | 2019-06-14 00:36 | ED_ITS ---
HPI - Extremity Injury (Lower) General Chief Complaint: Extremity Injury, Lower Stated Complaint: left foot pain Time Seen by Provider: 06/14/19 00:36 Source: patient Mode of arrival: Family Vehicle Limitations: no limitations History of Present Illness HPI Narrative: The patient stoved his left foot about 1 week ago, he accidentally hit the edge of a bed. He was barefoot at the time. He complains of ongoing/increasing pain since the initial injury. He has pain in the left lateral foot, in the left ankle. He Has taken Tylenol, the last dose this morning but there was no relief of pain. He initially applied ice packs the site with no relief. He has no other injuries. He has no difficulty with ambulation. Pain is limited to the left ankle and foot. The accident happened at home. Related Data Previous Rx's Medication Instructions Recorded lisinopril 20 mg tablet 20 mg PO QDAY #90 each 04/05/19 Allergies Allergy/AdvReac Type Severity Reaction Status Date / Time No Known Drug Allergies Allergy Verified 07/27/18 13:00 Review of Systems Review of Systems ROS Unobtainable: All systems reviewed & are unremarkable except as noted in HPI and below Constitutional Constitutional: Denies chills, Denies fever(s), Denies lethargy and Denies weakness ENT Ears, Nose, Mouth, and Throat: Denies dizziness Musculoskeletal Musculoskeletal: Denies muscle weakness and Denies numbness Comments: Left foot and ankle pain as noted in HPI. Integumentary/Breasts Skin/Breast: Denies erythema, Denies rash and Denies wounds Neurologic Neurologic: Denies confusion, Denies dizziness, Denies numbness and Denies weakness Psychiatric Psychiatric: Denies confusion Patient History Medical History Asthma (Chronic 2004) Eczema (Chronic 1997) Fractures (Resolved 2009) Hearing loss (Chronic 1997) Surgical History Anesthesia (Resolved) History of orthopedic surgery (Resolved) History of tonsillectomy (Resolved) Family History Father Age: 50 Hypertension Grandfather Cancer Hypertension High cholesterol Grandmother Age: 74 Heart disease Hypertension High cholesterol Diabetes mellitus Sister Age: 31 Mental health problem Grandfather No problems noted. Grandmother No problems noted. Mother No problems noted. Sister No problems noted. Social History Smoking Status: Former smoker Smoking Status: Former smoker alcohol intake frequency: 0-2 drinks per day Substance Use Type: does not use Exam Initial Vital Signs Initial Vital Signs: Vital Signs Temperature 97.9 F 06/14/19 00:30 Pulse Rate 120 H 06/14/19 00:30 Respiratory Rate 15 06/14/19 00:30 Blood Pressure 177/103 H 06/14/19 00:30 Pulse Oximetry 99 06/14/19 00:30 Const General: cooperative and well developed Nutritional Appearance: well nourished Skin General: no rashes or lesions noted Wounds: wound noted Neuro General: alert, oriented x3, gait normal and no focal motor deficits Speech: speech normal Sensory Exam: no sensory deficits noted Extrem Other: No left calf tenderness. Tenderness to the lateral and medial left ankle, but with normal range of motion and no palpable deformities. Tenderness to the left lateral foot, along the 5th metatarsal. No palpable deformity. No ecchymoses. The left dorsalis pedis pulse is intact. No deformities to his toes. The contrast, the right foot is atraumatic. Procedures Orthopedic Splinting/Casting Injury #1: Side: left Lower Extremity Injury Location: ankle and foot Lower Extremity Immobilizer: AirCast and post-op shoe Post splinting neuro exam: intact Post splinting vascular exam: intact Placed by: Nursing Course Course Course Narrative: The patient was splinted and placed in a ortho shoe after x- rays. X-rays are benign. Distant happened 1 week ago. He is advised to use Tylenol or Advil as necessary for pain. Orders Ordered: ED Orders 06/14/19 00:49 XR ankle LT min 3V Stat XR foot LT min 3V Stat Vital Signs Vital signs: Vital Signs - 8 hr 06/14/19 00:30 06/14/19 01:22 06/14/19 01:45 Temperature 97.9 F Pulse Rate 120 H 103 H 97 H Respiratory Rate 15 18 Blood Pressure 177/103 H 145/89 H Pulse Oximetry 99 98 MDM - Extremity Injury (Lower) Imaging Data Left foot x-ray: My Impression: Normal Left ankle x-ray: My Impression: Normal Discharge Plan Departure Patient Disposition: Home Clinical Impression: Sprain of foot, left Qualifiers: Encounter type: initial encounter Qualified Code(s): S93.602A - Unspecified sprain of left foot, initial encounter Left ankle sprain Qualifiers: Encounter type: initial encounter Involved ligament of ankle: tibiofibular ligament Qualified Code(s): S93.432A - Sprain of tibiofibular ligament of left ankle, initial encounter Discharge Date/Time: 06/14/19 01:45 Instructions: DI for Foot Sprain Activity Restrictions/Additional Instructions: Use the ortho boot for the next few days, wean from the boot as tolerated. Advil 3 tablets every 6 hours as needed for pain. Follow-up with your doctor in 10 days if not improved. Return to the ER as needed. Prescriptions: No Action lisinopril 20 mg tablet 20 mg PO QDAY Qty: 90 RF: 0 Referrals: Lenny Roy MD [Primary Care Provider] -
--- NOTE | 2019-06-14 00:49 | DI.RAD.S_ITS ---
PROCEDURE: XR FOOT LT MIN 3V INDICATIONS: Blunt trauma, left foot TECHNIQUE: 3 views of the foot were acquired. COMPARISON: [facility], , XR FOOT LT MIN 3V, 02/26/2018, 23:33. FINDINGS: Bones: No fractures or dislocations. No suspicious bony lesions. Soft tissues: No tibiotalar joint effusion. Achilles tendon appears normal. IMPRESSION: No gross acute left foot fracture or dislocation. Dictated by: Favio Martinez M.D. on 06/14/2019 at 8:33 Approved by: Favio Martinez M.D. on 06/14/2019 at 8:36
--- NOTE | 2019-06-14 00:49 | DI.RAD.S_ITS ---
PROCEDURE: XR ANKLE LT MIN 3V INDICATIONS: Left foot/ankle trauma TECHNIQUE: 3 views of the ankle were acquired. COMPARISON: [facility], CR, XR ANKLE RT MIN 3V, 07/27/2018, 13:07. FINDINGS: Bones: No fractures or dislocations. Ankle mortise is normally aligned. No suspicious bony lesions. Soft tissues: No tibiotalar joint effusion. Achilles tendon appears normal. Mild lateral ankle soft tissue swelling is seen. IMPRESSION: No gross acute left ankle fracture or dislocation. Lateral ankle soft tissue swelling. Dictated by: Favio Martinez M.D. on 06/14/2019 at 8:32 Approved by: Favio Martinez M.D. on 06/14/2019 at 8:33
[2019-06-14 01:22] VITALS: PULSE 103
[2019-06-14 01:45] VITALS: BP 145/89; PULSE 97; RESP 18; O2SAT 98
== END 2019-06-14 01:45 | disposition home or self-care (01) ==
PROVIDERS: Emergency Provider Emergency Medicine; PCP Family Medicine
DX: S93.602A Unspecified sprain of left foot, initial encounter (principal); S93.432A Sprain of tibiofibular ligament of left ankle, initial encounter; W22.8XXA Striking against or struck by other objects, initial encounter
CPT/HCPCS: 73610; 73630; 99283

== ENCOUNTER → 2019-10-10 18:41 | Outpatient (CLI) | payer OTHER, MEDICAID, SELFPAY ==
--- NOTE | 2019-10-10 18:43 | DI.MRI.S_ITS ---
PROCEDURE: MR ANKLE RT WO CON INDICATIONS: achilles pain TECHNIQUE: Noncontrast sagittal T1 spin echo and T2 fast spin echo with fat saturation, axial proton density fast spin echo and T2 fast spin echo with fat saturation, coronal T1 spin echo and T2 fast spin echo with fat saturation through the ankle/hindfoot. COMPARISON: None. FINDINGS: Image quality: Excellent. Bones and joints: No bone marrow contusions or fractures. No hindfoot coalitions. No osteochondral injuries of the talar dome. No pathologic joint effusions. Medial structures: Posterior tibialis intact. Mild posterior tibialis tenosynovitis. Flexor digitorum longus intact. Flexor hallucis longus tendon intact. The posterior tibial neurovascular bundle appears normal within the tarsal tunnel, without extrinsic mass effect. Deltoid ligament complex appears intact. The spring ligament appears intact. Lateral structures: Anterior talofibular ligament not visualized and presumably ruptured although this could be a chronic finding.. Calcaneofibular ligament intact. Posterior talofibular ligament intact. Anterior and posterior tibiofibular ligaments appear intact, as is the intermalleolar ligament. Tibiofibular syndesmosis is normal in width at 2 mm or less. Peroneus longus and brevis tendons appear normal. Peroneus longus tenosynovitis. Bony peroneal tubercle and retrotrochlear prominence are normal in size. Sinus tarsi demonstrates normal fatty signal, without edema, fibrosis, or cyst formation. Anterior structures: Tibialis anterior intact. Extensor hallucis longus intact. Extensor digitorum longus tendon intact. Dorsal talonavicular ligament appears intact. Posterior and plantar structures: Intrasubstance signal changes and mild thickening of the distal Achilles tendon in keeping with low-grade tendinopathy. There is adjacent retrocalcaneal bursitis. No complete Achilles rupture is seen Medial and lateral bands of the plantar fascia intact. No abductor digiti quinti muscle atrophy to suggest Newell neuropathy. IMPRESSION: Distal Achilles tendinopathy, and adjacent retrocalcaneal bursitis. No complete rupture Rupture of the anterior talofibular ligament, chronic finding Mild posterior tibialis tenosynovitis. Mild peroneus longus tenosynovitis Dictated by: Mohan Braxton M.D. on 10/11/2019 at 9:22 Approved by: Mohan Braxton M.D. on 10/11/2019 at 9:27
== END ==
PROVIDERS: PCP Family Medicine; Referring Provider Family Medicine; Visit Provider Family Medicine
DX: M76.61 Achilles tendinitis, right leg (principal); M77.51 Other enthesopathy of right foot and ankle; M65.871 Other synovitis and tenosynovitis, right ankle and foot
CPT/HCPCS: 73721

== ENCOUNTER → 2020-01-23 16:58 | Outpatient (CLI) | payer OTHER, MEDICAID, SELFPAY ==
--- NOTE | 2020-01-23 16:59 | DI.MRI.S_ITS ---
PROCEDURE: MR ANKLE LT WO CON INDICATIONS: Achilles and lateral Left ankle pain TECHNIQUE: Noncontrast sagittal T1 spin echo and T2 fast spin echo with fat saturation, axial proton density fast spin echo and T2 fast spin echo with fat saturation, coronal T1 spin echo and T2 fast spin echo with fat saturation through the ankle/hindfoot. COMPARISON: [facility], CR, XR ANKLE LT MIN 3V, 06/14/2019, 0:55. [facility], MR, MR ANKLE RT WO CON, 10/10/2019, 18:49. FINDINGS: Image quality: There is mild motion artifact. Bones and joints: No bone marrow contusions or fractures. There is mild bone marrow edema within the posterior aspect of the calcaneus dorsally compatible reactive changes. Minimal edema is also demonstrated within the talus and calcaneus along the subtalar joint likely representing mild ganglion cyst formation. No hindfoot coalitions. No osteochondral injuries of the talar dome. No pathologic joint effusions. Medial structures: The posterior tibialis, flexor digitorum longus, and flexor hallucis longus tendons are intact. The posterior tibial neurovascular bundle appears normal within the tarsal tunnel, without extrinsic mass effect. The deltoid and spring ligaments appear intact. Lateral structures: The anterior talofibular, calcaneofibular, and posterior talofibular ligaments appear thickened with slightly attenuated signal and mild periligamentous edema consistent with sequelae of mild sprains. More superiorly, the anterior and posterior tibiofibular ligaments appear intact, as is the intermalleolar ligament. The tibiofibular syndesmosis is normal in width at 2 mm or less. The peroneus longus and brevis tendons demonstrate normal location and morphology. Adjacent bony peroneal tubercle and retrotrochlear prominence are normal in size. The sinus tarsi demonstrates preserved fatty signal. The calcaneonavicular and calcaneocuboid components of the bifurcate ligament appear intact. The dorsal calcaneocuboid ligament appears intact. Anterior structures: The tibialis anterior, extensor hallucis longus, and extensor digitorum longus tendons appear intact. The dorsal talonavicular ligament appears intact. Posterior and plantar structures: There is mild tendinopathy in the Achilles tendon with mild interstitial partial tearing but no evidence of rupture. Mild peritendinous edema is demonstrated distally. There is a small amount of fluid and mild edema in the retrocalcaneal bursa. Medial and lateral bands of the plantar fascia are of normal thickness. No abductor digiti quinti muscle atrophy to suggest Newell neuropathy. IMPRESSION: 1. Mild tendinopathy of the Achilles tendon with mild interstitial partial tearing but no evidence of rupture. 2. Small amount of fluid and mild edema in the retrocalcaneal bursa compatible with bursitis. Mild adjacent bone marrow edema within the calcaneus is consistent with reactive changes. 3. Sequelae of mild sprains of the lateral ankle ligaments as described. Dictated by: Vernon Ruvalcaba M.D. on 01/24/2020 at 11:08 Approved by: Vernon Ruvalcaba M.D. on 01/24/2020 at 11:28
--- NOTE | 2020-01-23 16:59 | DI.MRI.S_ITS ---
PROCEDURE: MRFOOT LT WO CON INDICATIONS: Lateral left ankle foot pain TECHNIQUE: Noncontrast sagittal T1 spin echo and T2 fast spin echo with fat saturation, long-axis T1 spin echo and T2 fast spin echo with fat saturation, short-axis T1 spin echo and T2 fast spin echo with fat saturation through the forefoot. COMPARISON: [facility], MR, MR ANKLE LT WO CON, 01/23/2020, 17:16. FINDINGS: Image quality: Excellent. Bones and joints: No bone marrow contusions or fractures. No evidence of metatarsal stress reaction or stress fractures. There is mild degeneration at the 1st metatarsophalangeal joint with cartilage thinning, subchondral edema, and minimal osteophytosis. There is a small joint effusion at the 1st metatarsophalangeal joint. Mild periarticular bone marrow edema is demonstrated within the medial aspect of the 1st metatarsal head. There is mild bone marrow edema within the medial and lateral sesamoids. Soft tissues: There is mild periarticular soft tissue swelling medial to the 1st metatarsophalangeal joint. The medial collateral ligament at the 1st MCP joint is attenuated in appearance. The visualized plantar foot muscles demonstrate normal signal and bulk. Visualized flexor and extensor tendons appear intact, without tenosynovitis. The distal insertions of the peroneus brevis and longus tendons appear intact. The principal Lisfranc ligament appears intact. There is trace intermetatarsal bursal fluid within the 1st, 2nd, and 3rd metatarsal interspaces. There are small areas of focal T2 hyperintensity within the plantar soft tissues at the level of the 4th and 3rd proximal phalanges compatible with magnetic susceptibility artifact. Sagittal images demonstrate no evidence for plantar plate tears. IMPRESSION: 1. Small joint effusion at the 1st metatarsophalangeal joint with mild periarticular bone marrow edema along the medial aspect of the metatarsal head and mild soft tissue edema along the medial joint capsule. The findings are nonspecific and may represent sequelae of a sprain but an inflammatory arthropathy with developing juxta-articular erosion cannot be excluded. Recommend correlation clinically. Dictated by: Vernon Ruvalcaba M.D. on 01/25/2020 at 14:48 Approved by: Vernon Ruvalcaba M.D. on 01/25/2020 at 14:57
== END ==
PROVIDERS: PCP Family Medicine; Referring Provider Family Medicine; Visit Provider Family Medicine
DX: M25.572 Pain in left ankle and joints of left foot (principal); R60.0 Localized edema; S93.492S Sprain of other ligament of left ankle, sequela
CPT/HCPCS: 73718; 73721

== ENCOUNTER 2020-04-02 09:13 | Emergency (ER) | payer OTHER, MEDICAID, SELFPAY ==
[2020-04-02 09:20] VITALS: BP 181/107; PULSE 89; RESP 16; TEMP 37.2; O2SAT 99; BMI 37.4
--- NOTE | 2020-04-02 09:33 | ED_ITS ---
HPI - Ear Problem General Chief complaint: Ear Stated complaint: Right side ear pain Time Seen by Provider: 04/02/20 09:21 Source: patient Mode of arrival: Ambulatory Limitations: no limitations History of Present Illness HPI Narrative: With history of hearing loss is presenting with right ear pain ongoing for a few hours. He said he woke up and his right ear hurt. No fever chills no pressure in his sinuses no headache is. It does for a little bit behind his ear no drainage. As he says he folds his ears in to sleep he has been doing it since he was little, he thought maybe that was the reason for the pain. MD Complaint: ear pain Location: right ear Duration: constant Severity: mild Relieving factors: nothing Exacerbating factors: nothing Discharge from ear: no Treatment prior to arrival: none Related Data Previous Rx's Medication Instructions Recorded lisinopril 20 mg tablet 20 mg PO QDAY #90 each 09/25/19 meloxicam 15 mg tablet 15 mg PO DAILY #30 tab 12/21/19 hydrocodone 5 mg-acetaminophen 325 1 tab PO Q8H PRN #30 tab 03/05/20 mg tablet Allergies Allergy/AdvReac Type Severity Reaction Status Date / Time No Known Drug Allergies Allergy Verified 01/08/20 11:03 Review of Systems Review of Systems Narrative: GENERAL: Denies chills,fever HEENT: See HPI Denies throat pain RESPIRATORY: Denies dyspnea, cough, wheezing CARDIOVASCULAR: Denies chest pain, palpitations GASTROINTESTINAL: Denies nausea, vomiting MUSCULOSKELETAL: Denies extremity pain, injury SKIN: No rash, no laceration, no pruritus NEUROLOGIC: Denies weakness, dizziness, headache, numbness 8 point review of systems is negative except for those stated above and HPI Patient History Medical History (Updated 04/02/20 @ 09:39 by Tiffany Arroyo DO) Asthma (2004) Eczema (1997) Fractures (2009) Hearing loss (1997) Surgical History Anesthesia History of orthopedic surgery History of tonsillectomy Family History Father Age: 50 Hypertension Grandfather Cancer Hypertension High cholesterol Grandmother Age: 74 Heart disease Hypertension High cholesterol Diabetes mellitus Sister Age: 31 Mental health problem Grandfather No problems noted. Grandmother No problems noted. Mother No problems noted. Sister No problems noted. Social History Smoking Status: Former smoker Smoking Status: Former smoker alcohol intake frequency: 0-2 drinks per day Substance Use Type: does not use Exam Initial Vital Signs Initial Vital Signs: Vital Signs Temperature 98.9 F 04/02/20 09:20 Pulse Rate 89 04/02/20 09:20 Respiratory Rate 16 04/02/20 09:20 Blood Pressure 181/107 H 04/02/20 09:20 Pulse Oximetry 99 04/02/20 09:20 GENERAL: Well-appearing, well-nourished and in no acute distress. EARS: Normal external ears bilaterally tympanic membrane visualized bilaterally no erythema no fluid no drainage is. No tenderness in the right mastoid no erythema or swelling CARDIOVASCULAR: peripheral pulses in tact, cap refill <2 sec RESPIRATORY: No respiratory distress, speaks in full sentences without difficulty EXTREMITIES: Normal range of motion, no clubbing or edema. Neurovascularly intact NEUROLOGICAL: Cranial nerves II through XII grossly intact. Normal gait and speech. SKIN: Warm, dry, no petechiae, no rashes or lesions. Course Vital Signs Vital signs: Vital Signs - 8 hr 04/02/20 09:20 04/02/20 09:44 Temperature 98.9 F Pulse Rate 89 84 Respiratory Rate 16 16 Blood Pressure 181/107 H 187/82 H Pulse Oximetry 99 98 Medical Decision Making MDM Narrative Medical decision making narrative: Patient has had ear pain only for a few hours. At this time no sign of infection no concern for mastoiditis. Recommend follow-up and Tylenol or ibuprofen if needed for pain Discharge Plan Departure Patient Disposition: Home Clinical Impression: Acute pain of right ear Instructions: DI for Ear Pain-Adult Activity Restrictions/Additional Instructions: *You have been diagnosed with right ear pain *What to do: At this time no infection no need for antibiotics. However continue to monitor closely. *Continue to take medications as directed Tylenol 650 mg every 4-6 hours if needed for qevs-sg-ekoftlks pain Motrin 600 mg every 4-6 hours if needed for wrfn-yv-itouhnzh pain *Follow up with your primary care provider in 2-3 days *Return to ER if you should have increasing pain, fever, drainage or any new, worsening or concerning symptoms Prescriptions: No Action meloxicam 15 mg tablet 15 mg PO DAILY Qty: 30 RF: 1 hydrocodone-acetaminophen [[place]] 5-325 mg tablet 1 tab PO Q8H PRN (Reason: pain) Qty: 30 RF: 0 lisinopril 20 mg tablet 20 mg PO QDAY Qty: 90 RF: 3 Referrals: Lenny Roy MD [Physician] -
[2020-04-02 09:44] VITALS: BP 187/82; PULSE 84; RESP 16; O2SAT 98
--- NOTE | 2020-04-02 09:45 | PC.NURSE ---
pt will take his bp med when he gets home.
--- NOTE | 2020-04-02 10:06 | PC.NURSE ---
pt internal ear exam by dr. castro.
== END 2020-04-02 09:45 | disposition home or self-care (01) ==
LOC: ED 09:57
PROVIDERS: Emergency Provider Emergency Medicine; PCP Family Medicine
DX: H92.01 Otalgia, right ear (principal)
CPT/HCPCS: 99281

== ENCOUNTER → 2020-09-16 14:43 | Outpatient (CLI) | payer OTHER, MEDICAID, SELFPAY ==
[2020-09-16 16:23] LABS: COVID19 -Nasal RAPID Negative (Negative)
== END ==
PROVIDERS: PCP Family Medicine; Visit Provider Physician Assistant
DX: R05 Cough (principal); R50.9 Fever, unspecified; Z20.822 Contact with and (suspected) exposure to COVID-19
CPT/HCPCS: 87635

== ENCOUNTER → 2020-09-16 15:05 | Outpatient (CLI) | payer OTHER, MEDICAID, SELFPAY ==
--- NOTE | 2020-09-16 15:06 | DI.RAD.S_ITS ---
PROCEDURE: XR CHEST 2V INDICATIONS: cough TECHNIQUE: 2 views of the chest were acquired. COMPARISON: None. FINDINGS: Surgical changes and devices: Right clavicle fixation hardware for Lungs and pleura: Lungs are clear. 2.6 by 4.5 centimeter right pleural based mass. No pleural effusions or pneumothorax. Mediastinum: Mediastinal contours are normal. Heart size is normal. Bones and chest wall: No suspicious bony abnormalities. Soft tissues appear unremarkable. IMPRESSION: 1. No acute cardiopulmonary disease process. 2. 2.6 x 4.5 centimeter upper right pleural-based mass. Neoplastic process is not excluded by this study. Recommend CT scan of the chest with contrast for definitive characterization when clinically feasible. Dictated by: Adrianne Lassiter MD, PhD on 09/16/2020 at 15:35 Approved by: Adrianne Lassiter MD, PhD on 09/16/2020 at 15:36
== END ==
PROVIDERS: PCP Family Medicine; Referring Provider Physician Assistant; Visit Provider Physician Assistant
DX: R05 Cough (principal); J94.9 Pleural condition, unspecified; R50.9 Fever, unspecified; Z20.822 Contact with and (suspected) exposure to COVID-19
CPT/HCPCS: 71046; 87635

== ENCOUNTER → 2020-09-17 09:31 | Outpatient (CLI) | payer OTHER, MEDICAID, SELFPAY ==
[2020-09-17 10:29] LABS: Add Manual Diff / Slide Review NO; Basophils Absolute Auto 100 /uL (0-100); Basophils Percent Auto 0.6 % (0-2); Eosinophils Absolute Auto 600 /uL (0-450); Eosinophils Percent Auto 4.8 % (2-4); Hematocrit 48.9 % (41-53); Hemoglobin 16.2 g/dL (13.5-17.5); Hemoglobin A1C% w Est Avg Glu 5.5 % (4.0-6.0); Lymphocytes Absolute Auto 2900 /uL (1100-4500); Lymphocytes Percent Auto 22.8 % (25-40); Mean Corpuscular HGB Conc 33.1 % (30-36); Mean Corpuscular Hemoglobin 26.2 PG (26-34); Mean Corpuscular Volume 79.2 fL (80-100); Monocytes Absolute Auto 800 /uL (0-900); Monocytes Percent Auto 6.6 % (3-14); Neutrophils Absolute Auto 8200 /uL (1500-7000); Neutrophils Percent Auto 65.2 % (50-75); Platelet Count 360 X10^3/uL (150-400); Red Blood Cell Count 6.18 X10^6/uL (4.5-5.9); Red Cell Distribution Width 15.3 % (11.6-14.8); White Blood Cell Count 12.5 X10^3/uL (4.5-11.0)
[2020-09-17 10:36] LABS: Alanine Aminotransferase 48 IU/L (<50); Albumin 4.4 g/dL (3.5-5.0); Albumin Globulin Ratio 1.2 (1.0-2.8); Alkaline Phosphatase 63 U/L (38-126); Aspartate Aminotransferase 36 IU/L (17-59); BUN Creatinine Ratio 14.3 (6-22); Bilirubin Total 0.8 mg/dL (0.2-1.3); Blood Urea Nitrogen 10 mg/dL (9-20); Calcium 9.4 mg/dL (8.4-10.2); Carbon Dioxide 27 mmol/L (22-32); Chloride 102 mmol/L (98-107); Cholesterol 181 mg/dL (140-199); Estimated Glomerular Filt Rate > 60.0 mL/min (>60); Globulin 3.7 g/dL (1.7-4.1); Glucose 100 mg/dL (70-100); HDL Cholesterol 31 mg/dL (40-60); Potassium 4.3 mmol/L (3.4-5.1); Sodium 138 mmol/L (137-145); Total Protein 8.1 g/dL (6.3-8.2); Triglycerides 434 mg/dL (35-150)
[2020-09-17 10:49] LABS: Creatinine Urine Random 35.6 mg/dL
[2020-09-17 11:02] LABS: Microalbumin Urine Random < 0.6 mg/dL (0-1.6)
[2020-09-17 11:06] LABS: TSH w/ Reflex to FT4 2.47 uIU/mL (0.47-4.68)
[2020-09-18 10:23] LABS: HEMOLYSIS 20 (0-50); Lactate Dehydrogenase 681 U/L (313-618)
== END ==
PROVIDERS: PCP Family Medicine; Referring Provider Family Medicine; Visit Provider Family Medicine
DX: F33.9 Major depressive disorder, recurrent, unspecified (principal); F41.1 Generalized anxiety disorder; I10 Essential (primary) hypertension; R73.9 Hyperglycemia, unspecified
CPT/HCPCS: 36415; 80053; 80061; 82043; 82570; 83036; 83615; 84443; 85025

== ENCOUNTER → 2020-09-19 13:12 | Outpatient (CLI) | payer OTHER, MEDICAID, SELFPAY ==
--- NOTE | 2020-09-19 13:16 | DI.CT.S_ITS ---
PROCEDURE: CT CHEST W CON INDICATIONS: Rt. pleural lung mass, follow up imaging TECHNIQUE: After the administration of intravenous contrast, 5 mm thick sections acquired from the pulmonary apices to the posterior costophrenic angles. 1 mm axial lung, 5 mm thick coronal and sagittal reformats and 7 mm axial MIP were acquired. For radiation dose reduction, the following was used: automated exposure control, adjustment of mA and/or kV according to patient size. COMPARISON: [facility], CR, XR CHEST 2V, 09/16/2020, 15:17. FINDINGS: Image quality: Excellent. Lungs and pleura: There is a oval-shaped pleural-based mass in the right upper hemithorax, measuring 2.4 x 4.3 x 3.1 cm. There is central lucency in the mass consistent with necrosis. There is no calcification. There is a 0.8 cm subpleural nodule in the right middle lobe. No acute air space opacities. No pleural effusions or pneumothorax. Central and peripheral airways are patent and normal in caliber. Mediastinum: Heart size is normal. No pericardial effusion. No mediastinal or hilar adenopathy by size criteria. Thoracic aorta and central pulmonary arteries are normal in size. Esophagus is normal in caliber. No hiatal hernia. Bones and chest wall: There is lucency of the lateral aspect of the 3rd rib adjacent to the pleural mass suspicious for invasion. . No vertebral body compression fractures. No axillary or supraclavicular adenopathy by size criteria. Thyroid gland is normal. Abdomen: Hepatic steatosis. Visualized upper abdominal solid organs appear normal. Upper abdominal bowel loops are normal in caliber. IMPRESSION: 1. There is a 2.4 x 4.3 x 3.1 cm oval-shaped pleural based mass in the lateral right upper thorax. Although a benign tumor is possible, bony invasion of the 3rd rib is concerning for malignant neoplasm. A PET-CT is recommended for further evaluation. 2. A 0.8 cm subpleural nodule in the right middle lobe. Please see enclosed follow-up recommendation. Fleischner Society criteria for SOLID lung nodule followup. Nodule size (mm)Low-risk patientHigh-risk patient?4No follow-up neededFollow-up at 12 mo; if no change, no further follow-up>4-7Pjeogq-of CT at 12 mo; if no change, no further follow-up needed.Initial follow-up CT at 6-12 mo, then 18-24 mo if no change. >6-8Initial follow-up CT at 6-12 mo, then 18-24 mo if no change. Initial follow-up CT at 3-6 mo, then 9-12 mo and 24 mo if no change. >8Follow-up CT at 3, 9, 24 mo. Or PET and/or biopsy.Same as for low-risk pts. Dictated by: Estefanía Antony M.D. on 09/19/2020 at 13:52 Approved by: Estefanía Antony M.D. on 09/19/2020 at 14:26
== END ==
PROVIDERS: PCP Family Medicine; Referring Provider Family Medicine; Visit Provider Family Medicine
DX: R91.8 Other nonspecific abnormal finding of lung field (principal)
CPT/HCPCS: 71260

== ENCOUNTER → 2020-10-07 13:34 | Outpatient (CLI) | payer OTHER, MEDICAID, SELFPAY ==
[2020-10-07 15:54] LABS: COVID19 -Nasal RAPID Negative (Negative)
== END ==
PROVIDERS: PCP Family Medicine; Visit Provider Physician Assistant
DX: Z01.812 Encounter for preprocedural laboratory examination (principal); Z20.822 Contact with and (suspected) exposure to COVID-19
CPT/HCPCS: 87635; C9803

== ENCOUNTER 2020-10-08 11:31 | Outpatient (CLI) | payer OTHER, MEDICAID, SELFPAY ==
[2020-10-08] VITALS (12 sets, daily range): BP systolic 113–164; BP diastolic 63–104; PULSE 71–88; RESP 13–28; TEMP 36.6–37.1; O2SAT 96–100; BMI 39.1
--- NOTE | 2020-10-08 | PATH_ITS ---
[facility] Accession Number: [id number] . 01 Material submitted: . lung - LUNG . 01 Diagnosis: Lung, Needle Core Biopsy: Spindle cell neoplasm, consistent with benign peripheral nerve sheath tumor. MRV 10/11/2020 1936 Local . 01 Comment: Sections show needle core fragments of moderately cellular spindle cell neoplasm, composed of plump spindled cells with tapered nuclear ends, forming vague intersecting fascicles, without significant nuclear atypia, mitotic activity, or necrosis. Scattered mast cells are associated. The neoplasm is accompanied by collagenized stroma and background tissue fragments include fibroadipose and skeletal muscle tissue. Lung parenchyma is not present in the specimen. A panel of *immunostains is obtained to determine the cell lineage and further classify, with the controls stained appropriately. . Broad spectrum cytokeratins (CATHY): Negative. S100: Uniformly positive. Smooth muscle actin: Negative. Desmin: Negative. CD34: Negative. Beta-catenin: Negative. Ki-67: Less than 5%. HMB45: Negative. . These results, in conjunction with the morphologic features, support neurogenic origin given uniform expression with S100. Additionally, there is no evidence for epithelial or mesothelial differentiation (negative CATHY), melanocytic neoplasm (negative HMB45), myogenic neoplasm (negative smooth muscle actin/desmin), solitary fibrous tumor (negative CD34), or a fibromatosis (negative beta-catenin). . Given the relative scantiness of the biopsy, consideration should be given to the possibility that it may not be patient service representative of the lesion as a whole. . Also, given that fibroadipose and skeletal muscle tissue are present in the biopsy without lung tissue, the specimen may possibly represent origin from chest wall. . . * This test was developed and its performance characteristics determined by [facility]. It has not been cleared or approved by the U.S. Food and Drug Administration. The FDA has determined that such clearance or approval is not necessary. This test is used for clinical purposes. It should not be regarded as investigational or for research. . 01 Electronically signed: . Savannah Perdomo MD, Pathologist NPI- [id number] . 01 Gross description: . The specimen is received in formalin, labeled lung, transbronchial core needle biopsy and consists of five hagan cores of soft tissue ranging from 0.3-0.6 cm in length by 0.1 cm in diameter. The specimen is entirely submitted in cassette A1. ([id number]) /MRV 10/09/2020 1000 Local . 01 Pathologist provided ICD-10: R22.2 . 01 CPT . 094440, K57350, C81380 Performed at: 01 [facility] [address] [place] [address], [place], [place] [id number] MD Vernon Mcknight MD Phone: [phone]
--- NOTE | 2020-10-08 11:37 | DI.CT.S_ITS ---
PROCEDURE: CT BIOPSY LUNG RT Sedation analgesia for 18 minutes. INDICATIONS: right lung mass TECHNIQUE: The indications, alternatives, benefits, risks, and possible complications of the procedure were communicated to the patient. Informed written consent from the patient was obtained and placed in the chart. Continuous EKG and hemodynamic monitoring was started by trained personnel. The patient was brought to the CT suite and dairy feed worker spiral CT imaging was performed with localization grid. The appropriate site for percutaneous access to the biopsy target was marked, was prepped and draped sterilely, and was infused with local anaesthesia. Under CT guidance, a core biopsy trocar and needle set was advanced to the biopsy target, and specimen(s) were obtained. The trocar and needle were then removed, and the patient was sent for post-procedure monitoring. COMPARISON: [facility], CT, CT CHEST W [facility], 09/19/2020, 13:24. FINDINGS: Biopsy site: Right pleural based mass at the level of the right 3rd rib. Needle: 20 gauge biopsy needle with introducer trocar. Number of passes: 3 Medications: 1% lidocaine for local anaesthesia. IV Fentanyl (50 micrograms) and Versed (2 milligrams) for conscious sedation for 18 minutes (see nursing record). Complications: None. IMPRESSION: Successful CT-guided biopsy of right pleural based mass. No immediate complications. Dictated by: Adrianne Lassiter MD, PhD on 10/08/2020 at 15:47 Approved by: Adrianne Lassiter MD, PhD on 10/08/2020 at 15:49
[2020-10-08 12:46] LABS: Add Manual Diff / Slide Review NO; Basophils Absolute Auto 100 /uL (0-100); Basophils Percent Auto 0.5 % (0-2); Eosinophils Absolute Auto 500 /uL (0-450); Eosinophils Percent Auto 5.4 % (2-4); Hematocrit 47.1 % (41-53); Hemoglobin 16.1 g/dL (13.5-17.5); Lymphocytes Absolute Auto 2700 /uL (1100-4500); Lymphocytes Percent Auto 27.3 % (25-40); Mean Corpuscular HGB Conc 34.1 % (30-36); Mean Corpuscular Hemoglobin 26.8 PG (26-34); Mean Corpuscular Volume 78.6 fL (80-100); Monocytes Absolute Auto 800 /uL (0-900); Monocytes Percent Auto 7.9 % (3-14); Neutrophils Absolute Auto 5800 /uL (1500-7000); Neutrophils Percent Auto 58.9 % (50-75); Platelet Count 281 X10^3/uL (150-400); Red Blood Cell Count 5.99 X10^6/uL (4.5-5.9); Red Cell Distribution Width 15.3 % (11.6-14.8); White Blood Cell Count 9.9 X10^3/uL (4.5-11.0)
[2020-10-08 13:24] LABS: Prothrombin Time 11.1 SECONDS (10.1-12.7)
[2020-10-08 13:26] LABS: PTT Partial Thromboplastin Tim 40 SECONDS (26.4-36.2)
[2020-10-08 13:30] LABS: Alanine Aminotransferase 53 IU/L (<50); Albumin 4.4 g/dL (3.5-5.0); Albumin Globulin Ratio 1.2 (1.0-2.8); Alkaline Phosphatase 54 U/L (38-126); Aspartate Aminotransferase 41 IU/L (17-59); BUN Creatinine Ratio 11.3 (6-22); Bilirubin Total 1.7 mg/dL (0.2-1.3); Blood Urea Nitrogen 8 mg/dL (9-20); Calcium 9.8 mg/dL (8.4-10.2); Carbon Dioxide 24 mmol/L (22-32); Chloride 104 mmol/L (98-107); Estimated Glomerular Filt Rate > 60.0 mL/min (>60); Globulin 3.7 g/dL (1.7-4.1); Glucose 93 mg/dL (70-100); HEMOLYSIS < 15 (0-50); Potassium 4.4 mmol/L (3.4-5.1); Sodium 139 mmol/L (137-145); Total Protein 8.1 g/dL (6.3-8.2)
[2020-10-08] MEDS: MIDAZOLAM 5 MG/ML VIAL 1 MG IV ×2 (13:55→14:09)
[2020-10-08] MEDS: fentaNYL 100 MCG/2 ML INJ 50 MCG IV (14:09)
--- NOTE | 2020-10-08 14:33 | SUR.PHASEII ---
Pt arrived from DI, placed on continuous pulse ox, denied chest pain, SOB and bandaid c/d/i.
--- NOTE | 2020-10-08 16:11 | DI.RAD.S_ITS ---
PROCEDURE: XR CHEST 1V INDICATIONS: post bx TECHNIQUE: One view of the chest was acquired. COMPARISON: [facility], CR, XR CHEST 2V, 09/16/2020, 15:17. [facility], CT, CT BIOPSY LUNG RT, 10/08/2020, 13:39. FINDINGS: Surgical changes and devices: Status post right clavicle ORIF.. Lungs and pleura: Lungs are clear. No pleural effusions or pneumothorax. Mediastinum: Mediastinal contours appear normal. Heart size is normal. Bones and chest wall: No suspicious bony lesions. Overlying soft tissues appear unremarkable. IMPRESSION: No post biopsy pneumothorax. Dictated by: Adrianne Lassiter MD, PhD on 10/08/2020 at 16:22 Approved by: Adrianne Lassiter MD, PhD on 10/08/2020 at 16:24
--- NOTE | 2020-10-08 16:16 | SUR.PHASEII ---
Xray obtained, results pending.
--- NOTE | 2020-10-08 16:45 | SUR.PHASEII ---
Pt had xray, results to radiologist, ok to be d/c'ed. Left when dressed and left in stable condition. Denied chest pain or sob, bandaid remained c/d/i.
== END 2020-10-08 16:44 | disposition home or self-care (01) ==
PROVIDERS: PCP Family Medicine; Referring Provider Internal Medicine Medical Oncology; Visit Provider Internal Medicine Medical Oncology
PROC: BB24ZZZ Computerized Tomography (CT Scan) of Bilateral Lungs (ICD-10-PCS; CPT 32408; principal; 2020-10-08 13:30)
DX: R91.8 Other nonspecific abnormal finding of lung field (principal)
CPT/HCPCS: 32408; 36415; 71045; 80053; 85025; 85610; 85730; J2250; J3010

== ENCOUNTER → 2020-10-18 09:22 | Outpatient (CLI) | payer OTHER, MEDICAID, SELFPAY ==
[2020-10-18 10:18] LABS: Add Manual Diff / Slide Review NO; Basophils Absolute Auto 100 /uL (0-100); Basophils Percent Auto 0.6 % (0-2); Eosinophils Absolute Auto 500 /uL (0-450); Eosinophils Percent Auto 6.5 % (2-4); Hematocrit 46.2 % (41-53); Hemoglobin 15.6 g/dL (13.5-17.5); Lymphocytes Absolute Auto 2300 /uL (1100-4500); Lymphocytes Percent Auto 28.9 % (25-40); Mean Corpuscular HGB Conc 33.8 % (30-36); Mean Corpuscular Volume 79.9 fL (80-100); Monocytes Absolute Auto 600 /uL (0-900); Monocytes Percent Auto 7.2 % (3-14); Neutrophils Absolute Auto 4500 /uL (1500-7000); Neutrophils Percent Auto 56.8 % (50-75); Platelet Count 293 X10^3/uL (150-400); Red Blood Cell Count 5.78 X10^6/uL (4.5-5.9); Red Cell Distribution Width 15.2 % (11.6-14.8); White Blood Cell Count 7.9 X10^3/uL (4.5-11.0)
[2020-10-18 10:46] LABS: BUN Creatinine Ratio 16.3 (6-22); Blood Urea Nitrogen 13 mg/dL (9-20); Calcium 9.3 mg/dL (8.4-10.2); Carbon Dioxide 23 mmol/L (22-32); Chloride 106 mmol/L (98-107); Estimated Glomerular Filt Rate > 60.0 mL/min (>60); Glucose 129 mg/dL (70-100); HEMOLYSIS 46 (0-50); Potassium 4.4 mmol/L (3.4-5.1); Sodium 139 mmol/L (137-145)
[2020-10-18 11:04] LABS: COVID19 -Nasal RAPID Negative (Negative)
== END ==
PROVIDERS: Physician Assistant; PCP Family Medicine; Referring Provider Thoracic Surgery (Cardiothoracic Vascular Surgery); Visit Provider Thoracic Surgery (Cardiothoracic Vascular Surgery)
DX: Z01.818 Encounter for other preprocedural examination (principal); Z01.812 Encounter for preprocedural laboratory examination; Z20.822 Contact with and (suspected) exposure to COVID-19; R22.2 Localized swelling, mass and lump, trunk
CPT/HCPCS: 36415; 80048; 85025; 87635; C9803

== ENCOUNTER 2020-10-30 10:24 | Emergency (ER) | payer OTHER, MEDICAID, SELFPAY ==
[2020-10-30 10:33] VITALS: BP 138/86; PULSE 85; RESP 14; TEMP 36.6; O2SAT 100; BMI 39.1
[2020-10-30 12:23] VITALS: BP 130/80; PULSE 80; RESP 18; O2SAT 96
--- NOTE | 2020-10-31 10:43 | ED_ITS ---
HPI - Ear Problem General Chief complaint: Ear Stated complaint: Right throbbing ear pain x2 days Time Seen by Provider: 10/30/20 11:04 Source: patient and family Mode of arrival: Ambulatory Limitations: no limitations History of Present Illness HPI Narrative: 25-year-old gentleman with hearing loss using hearing aids presents with right ear pain. He recently had chest surgery for chest mass and had been taking quite a bit of pain medications as prescribed for postsurgical pain. With these pain medications he forgot to take his hearing aids out a couple of evenings and his right ear with somewhat irritated. He describes using saline flush as well as Q-tips to try to resolve the problem but that seemed to make it worse. He comes in today for further evaluation. His surgical incisions on the right chest healing nicely he has no complaints of chest pain, orthopnea, dyspnea, lower extremity edema, no fevers no cough no abdominal pain Related Data Home Medications Medication Instructions Recorded Confirmed ibuprofen 200 mg tablet 1,000 mg PO Q6H PRN 09/24/20 10/08/20 Allergies Allergy/AdvReac Type Severity Reaction Status Date / Time No Known Drug Allergies Allergy Verified 10/30/20 10:33 Review of Systems Review of Systems Narrative: Remainder of complete review of systems is otherwise unremarkable except for that included in the HPI. Patient History Medical History Achilles tendinitis of right lower extremity Achilles tendinitis, left leg Ankle pain Asthma (2004) Decreased visual acuity Eczema (1997) Fractures (2009) Hearing loss (1997) Hyperglycemia Left ankle pain Left wrist sprain Lung mass Surgical History Anesthesia History of orthopedic surgery History of tonsillectomy Family History Father Age: 51 Hypertension Grandfather Cancer Hypertension High cholesterol Grandmother Age: 75 Heart disease Hypertension High cholesterol Diabetes mellitus Sister Age: 32 Mental health problem Grandfather No problems noted. Grandmother No problems noted. Mother No problems noted. Sister No problems noted. Social History household members: spouse Smoking Status: Former smoker Smoking Status: Former smoker alcohol intake frequency: a few times a month Substance Use Type: marijuana and other Exam Narrative Exam Narrative: General: Alert appropriate in no acute distress HEENT: Left ear with hearing aid in place, tympanic membrane and canal are unremarkable. Right ear has a ruptured tympanic membrane with the cup 50% of the membrane not visible. Some minor redness to the external canal without otitis media. Some minor dry wax attached to the external canal. No cervical adenopathy Respiratory: Able to speak in full sentences, no obvious respiratory distress Skin: No obvious rashes, warm and dry Neurologic: Grossly intact no obvious asymmetries or abnormalities Psych: appropriate insight and affect, cooperative Initial Vital Signs Initial Vital Signs: Vital Signs Temperature 97.9 F 10/30/20 10:33 Pulse Rate 85 10/30/20 10:33 Respiratory Rate 14 10/30/20 10:33 Blood Pressure 138/86 10/30/20 10:33 Pulse Oximetry 100 10/30/20 10:33 Medical Decision Making MDM Narrative Medical decision making narrative: 25-year-old gentleman with already noted hearing loss and hearing aids presents with right ear pain that does appear to be a ruptured tympanic membrane. No evidence of infection at this time. Foll ow-up with ENT as scheduled for tomorrow at 11:30 a.m.. Patient is safe for home discharge Discharge Plan Departure Patient Disposition: Home Clinical Impression: Rupture of right tympanic membrane Instructions: Ruptured Eardrum Activity Restrictions/Additional Instructions: Thank you for coming in today You look like you ruptured your ear drum on the right side. I believe that is the reason that it is hurting. Using 400 mg of ibuprofen (2 [id number] pills) and 1 Tylenol every 6 hours can be very helpful in controlling pain. It is okay to keep a cotton ball in the ear if that helps I have scheduled an appointment for you tomorrow with her ear nose and throat physician, Dr. hayden. It is at [facility] your nose and throat office in [place]. the phone number is [phone]. Your appointment is at 11:30 a.m. tomorrow any need to arrive at 11:15 a.m.. If you need to change that, please call their office directly I hope you heal quickly Prescriptions: No Action ibuprofen 200 mg Tablet 1,000 mg PO Q6H PRN (Reason: Pain (Scale Score 1-3)) RF: 0 Referrals: Darien Schmitt MD [Primary Care Provider] -
--- OUTSIDE RECORDS SUMMARY | 2020-11-01 07:43 | XMS_ITS | Referral Summary ---
:1995 Author Organization [facility] Address [address] [place] [address] Care Team Providers Name Role Phone MD Keshia Primary Care Provider Reason for Referral Otolaryngology (Routine) - Authorized Specialty Diagnoses / Procedures Referred By Contact Refer red To Contact Audiology Diagnoses Sensorineural hearing loss (SNHL) of both ears Prasanth Lozano MD [facility] [address] OUTPATIENT [place], [place] [address] [place] [address] [place] [address] Phone: Fax: Referral ID Status Reason Start Expiration Visits Visits Date Date Requested Authorized [id number] Authorized Specialty 10/31/2020 10/26/2021 1 1 Services Required Reason for Visit Reason Comments Earache right Encounter Details Date Type Department Care Team Description 10/31/2020 Office Visit [facility] Prasanth Lozano Se nsorineural hearing loss (SNHL) of both ears (Primary Dx); [place] [facility] Excessive ear wax, unspecified lateralit y; Throat [place] [address] [facility] Chronic pansinusitis [address] [facility] [phone] Allergies No known active allergiesdocumented as of this encounter (statuses as of 10/31/2020) Medications Medication Sig Dispensed Refills Start Date End Date Status acetaminophen Take 2 tablets (650 30 tablet 0 10/22/202011/01 Active (TYLENOL) 325 mg mg total) by mouth tablet every 4 (four) hours as needed for mild pain ((1-3)) for up to 10 days oxyCODONE Take 1-2 tablets 20 tablet 0 10/22/2020 11/01/2020 A ctive (ROXICODONE) 5 mg (5-10 mg total) by immediate release mouth every 4 tabletIndications: (four) hours as Chest wall mass needed for moderate pain ((4-6)) for up to 10 days polyethylene glycol Take 17 g by mouth 10 packet 0 10/22/2020 11/01/2020 Active (GLYCOLAX) 17 gram daily as needed packetIndications: (constipation) for constipation up to 10 days Indications: constipation documented as of this encounter (statuses as of 10/31/2020) Active Problems Problem Noted Date Chest wall mass 10/17/2020 Overview: Added automatically from request for mingo catracihto [id number] Adenoiditis 09/26/2020 Overview: Added automatically from request for mingo catrachito [id number] documented as of this encounter (statuses as of 10/31/2020) Social History Tobacco Use Types Packs/Day Years Used Date Former Smoker Cigarettes 0.25 10/17/2012 - 0 10/20/2020 Smokeless Tobacco: Former User Chew Q uit: 10/20/2020 Alcohol Use Standard Drinks/Week Comments Not Currently 0 (1 standard drink = 0.6 oz pure alcoho l) Alcohol Habits Answer Date Recorded How often do you have a drink containing alcohol? Never 10/17/2020 How many drinks containing alcohol do you have on a typical Not asked day when you are drinking? How often do you have six or more drinks on one occasion? No t asked Sex Assigned at Date Recorded Not on file Job Start Date Occupation Industry Not on file Not on file Not on file COVID-19 Exposure Response Date Recorded In the last month, have you been in contact with No / Unsure 10/22/2020 9:34 PM PDT someone who was confirmed or suspected to have Coronavirus / COVID-19? documented as of this encounter Last Filed Vital Signs Vital Sign Reading Time Taken Comments Blood Pressure 131/78 10/31/2020 12:05 PM PDT Pulse 84 10/31/2020 11:58 AM PDT Temperature 37.1 ??C (98.7 ??F) 10/31/2020 11:58 AM PDT Respiratory Rate - - Oxygen Saturation 100% 10/31/2020 11:58 AM PDT Inhaled Oxygen Concentration - - Weight 104 kg (229 lb) 10/31/2020 11:58 AM PDT Height 165.1 cm (5' 5) 10/31/2020 11:58 AM PDT Body Mass Index 38.11 10/31/2020 11:58 AM PDT documented in this encounter Progress Notes Prasanth Lozano MD - 10/31/2020 11:30 AM PDT Recheck after audiometric testing with either Dr. Howard or myself and we advised him to return every 4 to 6 months for ear cleaning rasanth Lozano MD - 10/31/2020 11:30 AM PDT PROGRESS NOTE Chief Complaint Patient presents with ??? Earache right 10/31/20: A 25 y.o. male here for evaluation of his ears. He had right ear pain approximately 3 days ago tried flushing it out with hydrogen peroxide and using a cotton ball with no improvement the pain has resolved itself somewhat today not had a significanthistory of ear disease in the past but has had significant hearing loss and has worn hearing aids from No other significant ear nose and throat issues although he did have a questionable adenoid mass anne few weeks ago had adenoid tissue biopsies he denies having significant facial pain or nasal drainage since then never did have mild episodes of nasal obstruction Review of Systems Constitutional: Negative. HENT: Positive for ear pain. Eyes: Negative. Respiratory: Negative. Cardiovascular: Negative. Gastrointestinal: Negative. Endocrine: Negative. Genitourinary: Negative. Musculoskeletal: Negative. Skin: Negative. Allergic/Immunologic: Negative. Neurological: Negative. Hematological: Negative. Psychiatric/Behavioral: Negative. Past Medical History: Diagnosis Date ??? Asthma ??? Hypertension Past Surgical History: Procedure Laterality Date ??? CLAVICLE SURGERY ??? [place] THORACOSCOPY SURG LOBECTOMY Right 10/21/2020 Procedure: Right robotic assisted thoracic surgery with resection of chest wall mass; Surgeon: Amari Ray MD PhD; Location: [facility] OR; Service: Thoracic ??? TONSILLECTOMY AND ADENOIDECTOMY Social History Socioeconomic History ??? Marital status: Single Spouse name: Not on file ??? Number of children: Not on file ??? Years of education: Not on file ??? Highest education level: Not on file Occupational History ??? Not on file Tobacco Use ??? Smoking status: Former Smoker Packs/day: 0.25 Types: Cigarettes Start date: 10/17/2012 Quit date: 10/20/2020 Years since quittin.0 ??? Smokeless tobacco: Former User Types: Chew Quit date: 10/20/2020 Vaping Use ??? Vaping Use: Former ??? Quit date: 10/20/2020 Substance and Sexual Activity ??? Alcohol use: Not Currently ??? Drug use: Never ??? Sexual activity: Not on file Other Topics Concern ??? Not on file Social History Narrative ??? Not on file Social Determinants of Health Financial Resource Strain: ??? Difficulty of Paying Living Expenses: Food Insecurity: ??? Worried About Running Out of Food in the Last Year: ??? Ran Out of Food in the Last Year: Transportation Needs: ??? Lack of Transportation (Medical): ??? Lack of Transportation (Non-Medical): Physical Activity: ??? Days of Exercise per Week: ??? Minutes of Exercise per Session: Stress: ??? Feeling of Stress : Social Connections: ??? Frequency of Communication with Friends and Family: ??? Frequency of Social Gatherings with Friends and Family: ??? Attends Anabaptist Services: ??? Active Member of Clubs or Organizations: ??? Attends Club or Organization Meetings: ??? Marital Status: Intimate Partner Violence: ??? Fear of Current or Ex-Partner: ??? Emotionally Abused: ??? Physically Abused: ??? Sexually Abused: History reviewed. No pertinent family history. Patient Active Problem List Diagnosis ??? Adenoiditis ??? Chest wall mass No Known Allergies BP 131/78 (BP Location: Right arm, Patient Position: Sitting) Pulse 84 Temp 37.1 ??C (98.7 ??F) (Temporal) Ht 1.651 m Wt 104 kg SpO2 100% BMI 38.11 kg/m?? Current Outpatient Medications on File Prior to Visit Medication Sig Dispense Refill ??? acetaminophen (TYLENOL) 325 mg tablet Take 2 tablets (650 mg total) by mouth every 4 (four) hours as needed for mild pain ((1-3)) for up to 10 days 30 tablet 0 ??? oxyCODONE (ROXICODONE) 5 mg immediate release tablet Take 1-2 tablets (5-10 mg total) by mouth every 4 (four) hours as needed for moderate pain ((4-6)) for up to 10 days 20 tablet 0 ??? polyethylene glycol (GLYCOLAX) 17 gram packet Take 17 g by mouth daily as needed (constipation) for up to 10 days Indications: constipation 10 packet 0 No current facility-administered medications on file prior to visit. Physical Exam CONSTITUTION: General appearance:Well developed, well nourished and groomed. No apparent acute or chronic distress. Ability to communicate: normal. HEAD, FACE, SALIVARY GLANDS AND TMJ: Inspection of Head and Face: Normal contour and symmetry. No masses, lesions, or significant scars observed. Palpation/Percussion of the Face: No tenderness, deformity or instability. Palpation of Parotid and Submandibular glands: Normal. Facial Mobility: Normal. EYES: Ocular Motility: gaze appears conjugate in all positions; no evident nystagmus. EAR, NOSE, MOUTH AND THROAT: Pinnas and External Nose: Normal. External Ear Canals and Tympanic Membranes: Normal. Hearing: Conversational speech rarely or never misunderstands words. Nasal Interior: Normal septum, turbinates and mucosa. Lips, Teeth and Gums: Normal. Oral Cavity and Oropharynx: Normal. Base of tongue, Pharyngeal alanis, Valleculae and Pyriform Sinuses: Normal Larynx: Normally mobile true vocal cords without lesion. Nasopharynx examination: Normal NECK AND THYROID: Neck: symmetrical; trachea midline; normal laryngeal crepitation. Thyroid: not palpable. NEUROLOGIC: Level of consciousness: awake and alert. Orientation: Normal. Mood and affect: normal and appropriate to the situation. Cranial nerves: Cranial nerves II-XII grossly intact and symmetrical. 1. Sensorineural hearing loss (SNHL) of both ears 2. Excessive ear wax, unspecified laterality ASSESSMENT&PLAN: Assessment: #1 bilateral sensorineural hearing loss #2 earwax impaction bilaterally #3 history of adenoid hypertrophy and adenoid biopsy with mild nasal congestion Plan: Future audiometric testing will be ordered and reviewed with him I have also advised him to return every 4 to 6 months for cerumen removal his nasal exam today endoscopically shows moderate erythema over the adenoid tissue I did review the patients medical record to include outside notes regarding the current presentation, and included this information in my decision making process Prasanth Lozano MD documented in this encounter Procedure Notes Prasanth Lozano MD - 10/31/2020 11:30 AM PDTAssociated Order(s): Nasal/Sinus endoscopyPost-Procedure Diagnose(s): Chronic pansinusitis Nasal/Sinus endoscopy Date/Time: 10/31/2020 12:24 PM Performed by: Prasanth Lozano MD Authorized by: Prasanth Lozano MD PROCEDURE: Nasal endoscopy. INDICATIONS: History of adenoidal hypertrophy chronic nasal congestion and adenoid biopsy within thelast couple of weeks current right otalgia need to rule out nasopharyngeal abnormalities FINDINGS: Intranasal exam shows no mucopus no polyps nasopharynx is erythemic adenoid tissue is present its not significantly enlarged I can see the opening of the eustachian tubes bilaterally OPERATIVE PROCEDURE: With patient seated in the examination chair, 30-degree nasal endoscopy was performed right & left through the nasal chambers to the nasopharynx with good patient tolerance demonstrating the stated findings. The patient left under their own power without known complications. Marie Lozano MD - 10/31/2020 11:30 AM PDTAssociated Order(s): Ear Cerumen RemovalPost- Procedure Diagnose(s): Excessive ear wax, unspecified laterality Ear Cerumen Removal Date/Time: 10/31/2020 12:24 PM Performed by: Prasanth Lozano MD Authorized by: Prasanth Lozano MD PROCEDURE: Cerumen removal. INDICATIONS: ear plugged - hearing loss FINDINGS: cerumen impaction - COMPLETE OPERATIVE PROCEDURE: Following verbal consent with the patient supine on the treatment table, binocular microscopy, ear curettes, alligator forceps, & 5 suction were utilized as indicated to identify and remove the stated findings. Patient tolerated the procedure well documented in this encounter Plan of Treatment Upcoming Encounters Date Type Specialty Care Team Description 11/05/2020 Office Visit General Surgery Justine Veliz, PA [address] [place] [address] (Wo rk) 12/12/2020 Procedure visit Otolaryngology Mily Lange AuD [address] [place], [place] [phone] (Wo rk) 12/12/2020 Office Visit Otolaryngology Prasanth Lozano MD [address] [place], [place] [phone] (Wo rk) Scheduled Referrals Name Type Priority Associated Diagnoses Order S chedule Ambulatory referral Outpatient Referral Routine Sensorineural hearing Ordered: to Audiology loss (SNHL) of both 11/01/19 21 ears documented as of this encounter Procedures Procedure Name Priority Date/Time Associated Diagnosis Comme nts NASAL / SINUS Routine 10/31/2020 12:24 Chronic pansinusitis Re sults for this ENDOSCOPY PM PDT procedure are i n the results section. EAR CERUMEN REMOVAL Routine 10/31/2020 12:24 Excessive ear wax , Results for this PM PDT unspecified procedure are i n laterality the results section. documented in this encounter Results Nasal/Sinus endoscopy (10/31/2020 12:24 PM PDT) Narrative Prasanth Lozano MD - 10/31/2020 12:24 PM PDT Prasanth Lozano MD ? 10/31/2020 12:26 PM Nasal/Sinus endoscopy Date/Time: 10/31/2020 12:24 PM Performed by: Prasanth Lozano MD Authorized by: Prasanth Lozano MD Ear Cerumen Removal (10/31/2020 12:24 PM PDT) Narrative Prasanth Lozano MD - 10/31/2020 12:24 PM PDT Prasanth Lozano MD ? 10/31/2020 12:26 PM Ear Cerumen Removal Date/Time: 10/31/2020 12:24 PM Performed by: Prasanth Lozano MD Authorized by: Prasanth Lozano MD documented in this encounter Visit Diagnoses Diagnosis Sensorineural hearing loss (SNHL) of bot h ears - Primary Excessive ear wax, unspecified lateralit y Chronic pansinusitis Other chronic sinusitis documented in this encounter Insurance Payer Benefit Plan / Subscriber ID Effective Dates Phone Addre ss Type Group [facility] [id number] 2020-Present [address] PL[place] [facility] [place] [phone] MEDICAID MANAGED documented as of this encounter Advance Directives Documents on File Type Date Recorded Patient Alum Mixer Explanati on Advance Directives and Living Will Latest Code Status on File Code Status Date Activated Date Inactivated Comments Full Code 10/21/2020 8:46 AM 10/22/2020 5:10 PM Care Teams Product Marketer Relationship Specialty Start Date End Date Darien Schmitt MD PCP - General Family Medicine 10/22/[address] [place] [address], [address] [place], [place] [phone] documented as of this encounter
--- OUTSIDE RECORDS SUMMARY | 2020-11-01 07:43 | XMS_ITS | Referral Summary ---
:1995 Author Organization [facility] Address [address] [place] [address] Care Team Providers Name Role Phone MD Keshia Primary Care Provider Reason for Referral Otolaryngology (Routine) - Authorized Specialty Diagnoses / Procedures Referred By Contact Refer red To Contact Audiology Diagnoses Sensorineural hearing loss (SNHL) of both ears Prasanth Lozano MD [facility] [address] OUTPATIENT [place], [place] [address] [place] [address] [place] [address] Phone: Fax: Referral ID Status Reason Start Expiration Visits Visits Date Date Requested Authorized [id number] Authorized Specialty 10/31/2020 10/26/2021 1 1 Services Required Reason for Visit Reason Comments Earache right Encounter Details Date Type Department Care Team Description 10/31/2020 Office Visit [facility] Prasanth Lozano Se nsorineural hearing loss (SNHL) of both ears (Primary Dx); [place] [facility] Excessive ear wax, unspecified lateralit y; Throat [place] [address] [facility] Chronic pansinusitis [address] [facility] [phone] Allergies No known active allergiesdocumented as of [...] Added automatically from request for mingo catrachito [id number] Adenoiditis 09/26/2020 Overview: Added automatically from request for mingo catrachito [id number] documented as of this encounter (statuses as [...] Procedure Laterality Date ??? CLAVICLE SURGERY ??? [place] THORACOSCOPY SURG LOBECTOMY Right 10/21/2020 Procedure: Right [...] Gatherings with Friends and Family: ??? Attends Faith Services: ??? Active Member of Clubs or [...] Veliz, PA [address] [place] [address] (Wo rk) 12/12/2020 Procedure visit Otolaryngology Mily Lange AuD [address] [place], [place] [phone] (Wo rk) 12/12/2020 Office Visit Otolaryngology Prasanth Lozano MD [address] [place], [place] [phone] (Wo rk) Scheduled Referrals Name Type Priority [...] Effective Dates Phone Addre ss Type Group [facility] [id number] 2020-Present [id number] PLAN OF [facility] [phone] MEDICAID MANAGED documented as of this encounter Advance Directives Documents on File Type Date Recorded Patient City Tax Auditor Explanati on Advance Directives and Living Will Latest Code Status on File Code Status Date Activated Date Inactivated Comments Full Code 10/21/2020 8:46 AM 10/22/2020 5:10 PM Care Teams Machine Worker Relationship Specialty Start Date End Date Darien Schmitt MD PCP - General Family Medicine 10/22/[address] [place] [address], [address] [place], [place] [phone] documented as of this encounter
== END 2020-10-30 12:23 | disposition home or self-care (01) ==
PROVIDERS: Emergency Provider Emergency Medicine; PCP Family Medicine
DX: H72.91 Unspecified perforation of tympanic membrane, right ear (principal)
CPT/HCPCS: 99281

== ENCOUNTER 2021-03-18 18:35 | Emergency (ER) | payer OTHER, MEDICAID, SELFPAY ==
[2021-03-18 18:45] VITALS: BP 143/71; PULSE 91; RESP 20; TEMP 37.2; O2SAT 96; BMI 39.5
--- NOTE | 2021-03-18 21:10 | ED_ITS ---
HPI - Extremity Problem General Chief complaint: Extremity Problem,Nontraumatic Stated complaint: RIGHT FOOT LOTS OF PAIN Time Seen by Provider: 03/18/21 19:42 Source: patient Mode of arrival: Wheelchair Limitations: no limitations History of Present Illness HPI Narrative: Patient is a 25-year-old male. He is here for evaluation of right foot/ankle pain. It is been there for the past couple days. For the past several years he has had periodic episodes where his ankles will swell and become red and very painful. The symptoms have lasted various amount of times from hours to days to weeks but then will completely resolved. He has had period of time without any symptoms. He denies any specific trauma. He has had periods of time when it was just his right ankle that is affected in. The time was just his left ankle that is affected. He has seen his primary doctor. Has seen orthopedics. Has had x-rays. Has seen physical therapy. He states that he is never had a specific diagnosis. He has never had these symptoms in any other joints. He currently has no fevers. Does have a swollen red painful right ankle. This feels just like the symptoms he has had multiple times over the past several y ears. Related Data Home Medications Medication Instructions Recorded Confirmed ibuprofen 200 mg tablet 1,000 mg PO Q6H PRN 09/24/20 11/27/20 Previous Rx's Medication Instructions Recorded lisinopril 20 mg tablet 20 mg PO QDAY #90 each 11/15/20 prednisone 20 mg tablet 20 mg PO DAILY #30 tab 03/18/21 Allergies Allergy/AdvReac Type Severity Reaction Status Date / Time No Known Drug Allergies Allergy Verified 11/15/20 09:29 Review of Systems Constitutional Constitutional: Denies fever(s) Musculoskeletal Musculoskeletal: Reports system reviewed and no additional complaints, except as documented and Reports as per HPI Integumentary/Breasts Skin/Breast: Reports system reviewed and no additional complaints, except as documented and Reports as per HPI Neurologic Neurologic: Reports system reviewed and no additional complaints, except as documented Hematologic/Lymphatic On Anticoagulants: No Patient History Medical History Achilles tendinitis of right lower extremity Achilles tendinitis, left leg Ankle pain Asthma (2004) Bilateral Achilles tendonosis Decreased visual acuity Eczema (1997) Fractures (2009) Hearing loss (1997) Hyperglycemia Left ankle pain Left wrist sprain Lung mass Surgical History Anesthesia History of orthopedic surgery History of tonsillectomy Family History Father Age: 51 Hypertension Grandfather Cancer Hypertension High cholesterol Grandmother Age: 75 Heart disease Hypertension High cholesterol Diabetes mellitus Sister Age: 32 Mental health problem Grandfather No problems noted. Grandmother No problems noted. Mother No problems noted. Sister No problems noted. Social History household members: spouse Smoking Status: Former smoker Smoking Status: Former smoker alcohol intake frequency: a few times a month Substance Use Type: marijuana and other Exam Initial Vital Signs Initial Vital Signs: Vital Signs Temperature 98.9 F 03/18/21 18:45 Pulse Rate 91 H 03/18/21 18:45 Respiratory Rate 20 03/18/21 18:45 Blood Pressure 143/71 H 03/18/21 18:45 Pulse Oximetry 96 03/18/21 18:45 HENMT Head: normal to inspection and normocephalic Cardio Pulses: dorsalis pedis present on the left Skin Other: Redness located throughout the left ankle specifically on the medial aspect. Neuro Sensory Exam: no sensory deficits noted Extrem Other: Patient's right knee is unremarkable. Right calf is unremarkable. He does have tenderness along the Achilles tendon along the medial aspect of the right ankle along the lateral aspect right ankle along the anterior midfoot. His forefoot and toes are unremarkable. He does have swelling around the area. It is somewhat warm to touch. His left ankle left lower extremity unremarkable today. Psych Appearance: grossly normal and well kempt Course Orders Ordered: ED Orders 03/18/21 21:16 Basic Metabolic Panel Stat C-Reactive Protein Quant Stat Complete Blood Count AUTO DIFF Stat Erythrocyte Sedimentation Rate Stat Uric Acid Stat Discontinued Medications Hydrocodone Bitart/Acetaminophen (Hydrocodone/Acet 5/325 Tablet) 1 tab PO NOW ONE Stop: 03/18/21 22:47 Last Admin: 03/18/21 22:54 Dose: 1 tab Documented by: EMI Hydrocodone Bitart/Acetaminophen (Hydrocodone/Acet 5/325 Prepack) 1 bottle MISC SEEINSTR ONE Stop: 03/18/21 22:47 Last Admin: 03/18/21 22:54 Dose: 1 bottle Documented by: EMI Prednisone (Prednisone 20 Mg Tablet) 20 mg PO NOW ONE Stop: 03/18/21 22:47 Last Admin: 03/18/21 22:54 Dose: 20 mg Documented by: EMI Vital Signs Vital signs: Vital Signs - 8 hr 03/18/21 18:45 03/18/21 23:06 Temperature 98.9 F Pulse Rate 91 H 89 Respiratory Rate 20 16 Blood Pressure 143/71 H 142/91 H Pulse Oximetry 96 99 MDM - Extremity (Nontraumatic) Lab Data Result diagrams: 03/18/21 21:16 03/18/21 21:16 Labs: Lab Results 03/18/21 03/18/21 Range/Units 21:16 21:16 WBC 14.5 H (4.5-11.0) X10^3/uL RBC 5.53 (4.5-5.9) X10^6/uL Hgb 14.9 (13.5-17.5) g/dL Hct 44.5 (41-53) % MCV 80.5 (80-100) fL MCH 26.9 (26-34) PG MCHC 33.4 (30-36) % RDW 14.9 H (11.6-14.8) % Plt Count 352 (150-400) X10^3/uL Neut % (Auto) 69.0 (50-75) % Lymph % (Auto) 19.9 L (25-40) % [place] % (Auto) 8.2 (3-14) % Eos % (Auto) 2.4 (2-4) % Baso % (Auto) 0.5 (0-2) % Neut # (Auto) 07952 H (7387-9681) /uL Lymph # (Auto) 2900 (6219-8634) /uL [place] # (Auto) 1200 H (0-900) /uL Eos # (Auto) 400 (0-450) /uL Baso # (Auto) 100 (0-100) /uL ESR 30 H (0-15) MM/HR Sodium 142 (137-145) mmol/L Potassium 4.1 (3.4-5.1) mmol/L Chloride 103 (98-107) mmol/L Carbon Dioxide 30 (22-32) mmol/L BUN 11 (9-20) mg/dL Creatinine 0.96 (0.66-1.25) mg/dL Estimated GFR > 60.0 (>60) mL/min BUN/Creatinine Ratio 11.5 (6-22) Glucose 117 H (70-100) mg/dL Uric Acid 11.4 H (3.5-8.5) mg/dL Calcium 9.4 (8.4-10.2) mg/dL C-Reactive Protein 3.2 H (<1.0) mg/dL MDM Narrative Medical decision making narrative: Patient obviously has a arthritis based on his presentation. I have low s uspicion for a fracture given the history of no trauma and the fact that the symptoms come and go in a been going on for the past 4 years. I also have low suspicion for an infection. He is afebrile. He states the symptoms he has today are the same symptoms and if coming on for the past several years. He is somewhat red and warm to the touch and swollen. I have a high suspicion for gout based on his presentation today. I am not confident that I would be able to aspirate fluid from the joint. His uric acid is elevated. Same with his ESR and CRP. Considered other etiologies such as autoimmune issues but he has not had any other joint involvement except for the left ankle which is not involved today. Will start patient on prednisone. He was given strict return precautions and follow-up instructions. He expressed understanding and agreement. Discharge Plan Departure Patient Disposition: Home Clinical Impression: Arthritis Instructions: Gout Activity Restrictions/Additional Instructions: Start taking the prednisone as directed. Take 1 tablet today until your symptoms symptoms start to improve and then take 1/2 tablet a day for the next 7 days. Contact your primary doctor for a follow-up. Return to the emergency department for any new or worsening symptoms. Prescriptions: New prednisone 20 mg tablet 20 mg PO DAILY Qty: 30 0RF Rx Instructions: use as directed No Action lisinopril 20 mg tablet 20 mg PO QDAY Qty: 90 3RF Rx Instructions: Take one tablet by mouth once a day. ibuprofen 200 mg Tablet 1,000 mg PO Q6H PRN (Reason: Pain (Scale Score 1-3)) 0RF Referrals: Darien Schmitt MD [Primary Care Provider] -
[2021-03-18 21:37] LABS: Add Manual Diff / Slide Review NO; Basophils Absolute Auto 100 /uL (0-100); Basophils Percent Auto 0.5 % (0-2); Eosinophils Absolute Auto 400 /uL (0-450); Eosinophils Percent Auto 2.4 % (2-4); Hematocrit 44.5 % (41-53); Hemoglobin 14.9 g/dL (13.5-17.5); Lymphocytes Absolute Auto 2900 /uL (1100-4500); Lymphocytes Percent Auto 19.9 % (25-40); Mean Corpuscular HGB Conc 33.4 % (30-36); Mean Corpuscular Hemoglobin 26.9 PG (26-34); Mean Corpuscular Volume 80.5 fL (80-100); Monocytes Absolute Auto 1200 /uL (0-900); Monocytes Percent Auto 8.2 % (3-14); Neutrophils Absolute Auto 10000 /uL (1500-7000); Platelet Count 352 X10^3/uL (150-400); Red Blood Cell Count 5.53 X10^6/uL (4.5-5.9); Red Cell Distribution Width 14.9 % (11.6-14.8); White Blood Cell Count 14.5 X10^3/uL (4.5-11.0)
[2021-03-18 21:40] LABS: BUN Creatinine Ratio 11.5 (6-22); Blood Urea Nitrogen 11 mg/dL (9-20); Calcium 9.4 mg/dL (8.4-10.2); Carbon Dioxide 30 mmol/L (22-32); Chloride 103 mmol/L (98-107); Estimated Glomerular Filt Rate > 60.0 mL/min (>60); Glucose 117 mg/dL (70-100); HEMOLYSIS < 15 (0-50); Potassium 4.1 mmol/L (3.4-5.1); Sodium 142 mmol/L (137-145); Uric Acid 11.4 mg/dL (3.5-8.5)
[2021-03-18 21:56] LABS: Erythrocyte Sedimentation Rate 30 MM/HR (0-15)
[2021-03-18 22:25] LABS: C-Reactive Protein Quant 3.2 mg/dL (<1.0)
[2021-03-18] MEDS: HYDROCODONE/ACET 5/325 TABLET 1 TAB PO (22:54)
[2021-03-18] MEDS: HYDROCODONE/ACET 5/325 PREPACK 1 BOTTLE MISC (22:54)
[2021-03-18] MEDS: predniSONE 20 MG TABLET PO (22:54)
[2021-03-18 23:06] VITALS: BP 142/91; PULSE 89; RESP 16; O2SAT 99
== END 2021-03-18 23:06 | disposition home or self-care (01) ==
PROVIDERS: Emergency Provider Emergency Medicine; PCP Family Medicine
DX: M19.071 Primary osteoarthritis, right ankle and foot (principal)
CPT/HCPCS: 36415; 80048; 84550; 85025; 85651; 86140; 99283

== ENCOUNTER → 2021-03-28 16:07 | Outpatient (CLI) | payer OTHER, MEDICAID, SELFPAY ==
--- NOTE | 2021-03-28 16:09 | DI.RAD.S_ITS ---
PROCEDURE: XR ANKLE RT MIN 3V INDICATIONS: Bilateral foot and ankle pain TECHNIQUE: 3 views of the ankle were acquired. COMPARISON: [facility], CR, XR FOOT RT MIN 3V, 03/28/2021, 16:01. [facility], CR, XR ANKLE LT MIN 3V, 06/14/2019, 0:55. [facility], CR, XR ANKLE RT MIN 3V, 07/27/2018, 13:07. FINDINGS: Bones: No fractures or dislocations. Ankle mortise is normally aligned. No suspicious bony lesions. Soft tissues: No tibiotalar joint effusion. Achilles tendon appears normal. IMPRESSION: No fracture or dislocation. Dictated by: Jovan Buckley M.D. on 03/28/2021 at 16:58 Approved by: Jovan Buckley M.D. on 03/28/2021 at 17:00
--- NOTE | 2021-03-28 16:09 | DI.RAD.S_ITS ---
PROCEDURE: XR FOOT LT MIN 3V INDICATIONS: Bilateral foot and ankle pain TECHNIQUE: 3 views of the foot were acquired. COMPARISON: [facility], , XR FOOT LT MIN 3V, 06/14/2019, 0:55. FINDINGS: Bones: No fractures or dislocations. No suspicious bony lesions. Soft tissues: No tibiotalar joint effusion. Achilles tendon appears normal. IMPRESSION: No acute fracture. No osseous lesion. If symptoms and/or clinical suspicion for pathology persist, further assessment with repeat, or advanced imaging (e.g., CT, MRI, or bone scan) may be helpful for further assessment. Dictated by: Jarad Lee M.D. on 03/28/2021 at 16:35 Approved by: Jarad Lee M.D. on 03/28/2021 at 16:36
--- NOTE | 2021-03-28 16:09 | DI.RAD.S_ITS ---
PROCEDURE: XR ANKLE LT MIN 3V INDICATIONS: Bilateral foot and ankle pain TECHNIQUE: 3 views of the ankle were acquired. COMPARISON: [facility], CR, XR ANKLE LT MIN 3V, 06/14/2019, 0:55. FINDINGS: Bones: No fractures or dislocations. Ankle mortise is normally aligned. No suspicious bony lesions. Soft tissues: No tibiotalar joint effusion. Achilles tendon appears normal. IMPRESSION: No evidence acute bony abnormality of the left ankle. If clinical suspicion and/or symptoms persist, further assessment with repeat plain films, or advanced imaging (e.g., CT, MRI, or bone scan) may be helpful for further assessment. Dictated by: Star Jay M.D. on 03/28/2021 at 16:58 Approved by: Star Jay M.D. on 03/28/2021 at 16:59
--- NOTE | 2021-03-28 16:09 | DI.RAD.S_ITS ---
PROCEDURE: XR FOOT RT MIN 3V INDICATIONS: Bilateral foot and ankle pain TECHNIQUE: 3 views of the foot were acquired. COMPARISON: [facility], , XR FOOT LT MIN 3V, 06/14/2019, 0:55. FINDINGS: Bones: No fractures or dislocations. Minimal hallux valgus deformity with mild osteophytosis of the 1st metatarsophalangeal joint. Soft tissues: No tibiotalar joint effusion. IMPRESSION: No acute osseous abnormality. Dictated by: Wilfred Veloz M.D. on 03/28/2021 at 18:51 Approved by: Wilfred Veloz M.D. on 03/28/2021 at 18:52
== END ==
PROVIDERS: PCP Family Medicine; Referring Provider Family Medicine; Visit Provider Family Medicine
DX: M19.90 Unspecified osteoarthritis, unspecified site (principal); G89.29 Other chronic pain; M25.473 Effusion, unspecified ankle; M67.88 Other specified disorders of synovium and tendon, other site; M25.571 Pain in right ankle and joints of right foot; M25.572 Pain in left ankle and joints of left foot
CPT/HCPCS: 73610; 73630

== ENCOUNTER → 2021-04-12 09:57 | Outpatient (CLI) | payer OTHER, MEDICAID, SELFPAY ==
[2021-04-12 10:27] LABS: Add Manual Diff / Slide Review NO; Basophils Absolute Auto 0 /uL (0-100); Basophils Percent Auto 0.4 % (0-2); Eosinophils Absolute Auto 400 /uL (0-450); Eosinophils Percent Auto 5.9 % (2-4); Hematocrit 44.4 % (41-53); Hemoglobin 15.1 g/dL (13.5-17.5); Lymphocytes Absolute Auto 2000 /uL (1100-4500); Lymphocytes Percent Auto 27.2 % (25-40); Mean Corpuscular Hemoglobin 27.4 PG (26-34); Mean Corpuscular Volume 80.6 fL (80-100); Monocytes Absolute Auto 600 /uL (0-900); Monocytes Percent Auto 8.8 % (3-14); Neutrophils Absolute Auto 4200 /uL (1500-7000); Neutrophils Percent Auto 57.7 % (50-75); Platelet Count 344 X10^3/uL (150-400); Red Cell Distribution Width 14.5 % (11.6-14.8); White Blood Cell Count 7.4 X10^3/uL (4.5-11.0)
[2021-04-12 11:06] LABS: Alanine Aminotransferase 42 IU/L (<50); Albumin 4.6 g/dL (3.5-5.0); Albumin Globulin Ratio 1.2 (1.0-2.8); Alkaline Phosphatase 55 U/L (38-126); Aspartate Aminotransferase 40 IU/L (17-59); BUN Creatinine Ratio 11.7 (6-22); Bilirubin Total 1.4 mg/dL (0.2-1.3); Blood Urea Nitrogen 9 mg/dL (9-20); C-Reactive Protein Quant 0.8 mg/dL (<1.0); Calcium 9.6 mg/dL (8.4-10.2); Carbon Dioxide 28 mmol/L (22-32); Chloride 102 mmol/L (98-107); Estimated Glomerular Filt Rate > 60.0 mL/min (>60); Glucose 111 mg/dL (70-100); HEMOLYSIS 44 (0-50); Lactate Dehydrogenase 451 U/L (313-618); Potassium 4.7 mmol/L (3.4-5.1); Sodium 139 mmol/L (137-145); Total Protein 8.6 g/dL (6.3-8.2); Uric Acid 11.4 mg/dL (3.5-8.5)
[2021-04-12 11:10] LABS: Rheumatoid Factor < 8.6 IU/mL (<12.0)
[2021-04-12 11:16] LABS: Erythrocyte Sedimentation Rate 5 MM/HR (0-15)
[2021-04-15 14:57] LABS: ANA Screen, IFA Negative (.)
[2021-04-15 23:43] LABS: CCP Antibodies IgG/IgA 5 units (0-19)
== END ==
PROVIDERS: PCP Family Medicine; Referring Provider Family Medicine; Visit Provider Family Medicine
DX: G89.29 Other chronic pain (principal); M19.90 Unspecified osteoarthritis, unspecified site; M25.473 Effusion, unspecified ankle; M25.579 Pain in unspecified ankle and joints of unspecified foot; M67.88 Other specified disorders of synovium and tendon, other site
CPT/HCPCS: 36415; 80053; 83615; 84550; 85025; 85651; 86038; 86140; 86200; 86430

== ENCOUNTER 2021-06-04 20:51 | Emergency (ER) | payer OTHER, MEDICAID, SELFPAY ==
[2021-06-04 21:11] VITALS: BP 161/93; PULSE 96; RESP 20; TEMP 36.9; O2SAT 98; BMI 40.3
--- NOTE | 2021-06-05 00:49 | ED.LOWEXIN ---
HPI - Extremity Injury (Lower) General Chief Complaint: Extremity Injury, Lower Stated Complaint: rt knee pain Time Seen by Provider: 06/05/21 00:49 Source: patient Mode of arrival: Wheelchair History of Present Illness HPI Narrative: 26-year-old gentleman with history of gout, hypertension and hearing loss presents with acute right knee pain. He notes that he had been doing some work on his knees over the course of the day and when he stood up his right knee was somewhat more tender and the area above the knee has become more tender and swollen over the course of the day. He is having trouble flexing his knee because of the tightness over the prepatellar area. There is no who redness, warmth, trauma other than working on his knees earlier today. He is able to walk. No calf pain no hip pain. Related Data Home Medications Medication Instructions Recorded Confirmed ibuprofen 200 mg tablet 1,000 mg PO Q6H PRN 09/24/20 03/28/21 Previous Rx's Medication Instructions Recorded lisinopril 20 mg tablet 20 mg PO QDAY #90 each 11/15/20 prednisone 20 mg tablet 20 mg PO DAILY #30 tab 03/18/21 allopurinol 100 mg tablet 100 mg PO DAILY #90 tab 04/21/21 Allergies Allergy/AdvReac Type Severity Reaction Status Date / Time No Known Drug Allergies Allergy Verified 11/15/20 09:29 Review of Systems Review of Systems Narrative: Remainder of complete review of systems is otherwise unremarkable except for that included in the HPI. Patient History Medical History Achilles tendinitis of right lower extremity Achilles tendinitis, left leg Ankle pain Ankle swelling Asthma (2004) Bilateral Achilles tendonosis Chronic ankle pain Decreased visual acuity Eczema (1997) Fractures (2009) Hearing loss (1997) Hyperglycemia Left ankle pain Left wrist sprain Lung mass Surgical History Anesthesia History of orthopedic surgery History of tonsillectomy Family History Father Age: 52 Hypertension Grandfather Cancer Hypertension High cholesterol Grandmother Age: 76 Heart disease Hypertension High cholesterol Diabetes mellitus Sister Age: 33 Mental health problem Grandfather No problems noted. Grandmother No problems noted. Mother No problems noted. Sister No problems noted. Social History household members: spouse Smoking Status: Former smoker Smoking Status: Former smoker alcohol intake frequency: a few times a month Substance Use Type: marijuana and other Exam Initial Vital Signs Initial Vital Signs: Vital Signs Temperature 98.4 F 06/04/21 21:11 Pulse Rate 96 H 06/04/21 21:11 Respiratory Rate 20 06/04/21 21:11 Blood Pressure 161/93 H 06/04/21 21:11 Pulse Oximetry 98 06/04/21 21:11 General: Alert appropriate in no acute distress Respiratory: Able to speak in full sentences, no obvious respiratory distress Skin: No obvious rashes, warm and dry Neurologic: Grossly intact no obvious asymmetries or abnormalities Psych: appropriate insight and affect, cooperative Extremity: Right knee with prepatellar fullness, no tenderness at medial or lateral portions of the knee or joint line itself. No redness or warmth. No tenderness or fullness in the popliteal fossa neurovascularly intact distally. Procedures Orthopedic Splinting/Casting right knee: Time of procedure: 01:05 Side: right Lower Extremity Injury Location: knee Lower Extremity Immobilizer: knee immobilizer Post splinting neuro exam: intact Post splinting vascular exam: intact Placed by: Nursing Course Orders Ordered: Acetaminophen (Acetaminophen 325 Mg Tablet) 325 mg PO NOW ONE Stop: 06/05/21 00:58 Ibuprofen (Ibuprofen 400 Mg Tablet) 400 mg PO NOW ONE Stop: 06/05/21 00:58 Vital Signs Vital signs: Vital Signs - 8 hr 06/04/21 21:11 Temperature 98.4 F Pulse Rate 96 H Respiratory Rate 20 Blood Pressure 161/93 H Pulse Oximetry 98 MDM - Extremity Injury (Lower) MDM Narrative Medical decision making narrative: 26-year-old gentleman presents with what looks like a fairly classic prepatellar bursitis without evidence of infection or gout. There is no bony distinct injury any is able to bear weight. Will have him use ibuprofen and Tylenol, knee brace and allowed time to heal the injury. Mechanism and explanation of injury are reviewed with him in detail. Questions are answered he is safe for home discharge Discharge Plan Departure Patient Disposition: Home Clinical Impression: Bursitis, prepatellar, right Instructions: DI for Bursitis, DI for Knee Pain Activity Restrictions/Additional Instructions: Thank you for coming in today The bursa over your knee cap is swollen and that is what is causing her pain. This will get better but will also benefit with a bit of rest. There is no evidence of infection. I do not think that you have gout in this area. You did not injure the knee joint itself. You can use the knee brace as long as it is helping reduce pain and tenderness. Using 400 mg of ibuprofen (2 [id number] pills) and 1 Tylenol every 6 hours can be very helpful in controlling pain. If you find that you are getting worse, there is increasing redness swelling or tenderness please feel free to return to the emergency department. Prescriptions: No Action allopurinol 100 mg tablet 100 mg PO DAILY Qty: 90 0RF lisinopril 20 mg tablet 20 mg PO QDAY Qty: 90 3RF Rx Instructions: Take one tablet by mouth once a day. ibuprofen 200 mg Tablet 1,000 mg PO Q6H PRN (Reason: Pain (Scale Score 1-3)) 0RF prednisone 20 mg tablet 20 mg PO DAILY Qty: 30 0RF Rx Instructions: use as directed Referrals: Darien Schmitt MD [Primary Care Provider] -
[2021-06-05] MEDS: IBUPROFEN 400 MG TABLET PO (01:10)
[2021-06-05] MEDS: ACETAMINOPHEN 325 MG TABLET PO (01:10)
== END 2021-06-05 01:16 | disposition home or self-care (01) ==
PROVIDERS: Emergency Provider Emergency Medicine; PCP Family Medicine
DX: M70.41 Prepatellar bursitis, right knee (principal); Z87.891 Personal history of nicotine dependence
CPT/HCPCS: 99282; 99283

== ENCOUNTER → 2021-06-18 09:29 | Outpatient (CLI) | payer OTHER, MEDICAID, SELFPAY ==
[2021-06-18 09:47] LABS: Add Manual Diff / Slide Review NO; Basophils Absolute Auto 100 /uL (0-100); Basophils Percent Auto 0.6 % (0-2); Eosinophils Absolute Auto 400 /uL (0-450); Eosinophils Percent Auto 4.1 % (2-4); Hematocrit 44.5 % (41-53); Hemoglobin 15.2 g/dL (13.5-17.5); Lymphocytes Absolute Auto 2200 /uL (1100-4500); Lymphocytes Percent Auto 24.8 % (25-40); Mean Corpuscular HGB Conc 34.1 % (30-36); Mean Corpuscular Hemoglobin 27.2 PG (26-34); Mean Corpuscular Volume 79.6 fL (80-100); Monocytes Absolute Auto 800 /uL (0-900); Monocytes Percent Auto 9.1 % (3-14); Neutrophils Absolute Auto 5500 /uL (1500-7000); Neutrophils Percent Auto 61.4 % (50-75); Platelet Count 356 X10^3/uL (150-400); Red Blood Cell Count 5.59 X10^6/uL (4.5-5.9); Red Cell Distribution Width 14.8 % (11.6-14.8); White Blood Cell Count 8.9 X10^3/uL (4.5-11.0)
[2021-06-18 10:02] LABS: Alanine Aminotransferase 42 IU/L (<50); Albumin 4.7 g/dL (3.5-5.0); Albumin Globulin Ratio 1.2 (1.0-2.8); Alkaline Phosphatase 52 U/L (38-126); Aspartate Aminotransferase 37 IU/L (17-59); BUN Creatinine Ratio 13.9 (6-22); Bilirubin Total 1.5 mg/dL (0.2-1.3); Blood Urea Nitrogen 11 mg/dL (9-20); Calcium 9.3 mg/dL (8.4-10.2); Carbon Dioxide 29 mmol/L (22-32); Chloride 102 mmol/L (98-107); Estimated Glomerular Filt Rate > 60 mL/min (>60); Globulin 3.9 g/dL (1.7-4.1); Glucose 102 mg/dL (70-100); HEMOLYSIS < 15 (0-50); Sodium 139 mmol/L (137-145); Total Protein 8.6 g/dL (6.3-8.2)
[2021-06-18 10:43] LABS: Uric Acid 8.9 mg/dL (3.5-8.5)
== END ==
PROVIDERS: Internal Medicine Medical Oncology; PCP Family Medicine; Referring Provider Family Medicine; Visit Provider Family Medicine
DX: M10.9 Gout, unspecified (principal); M67.88 Other specified disorders of synovium and tendon, other site; R91.8 Other nonspecific abnormal finding of lung field
CPT/HCPCS: 36415; 80053; 84550; 85025

== ENCOUNTER → 2022-03-18 10:59 | Outpatient (CLI) | payer OTHER, MEDICAID, SELFPAY ==
--- NOTE | 2022-03-18 11:01 | DI.RAD.S_ITS ---
PROCEDURE: XR CHEST 2V INDICATIONS: right sided clavicle/chest pain TECHNIQUE: 2 views of the chest were acquired. COMPARISON: [facility], CR, XR CHEST 1 VIEW, 10/22/2020, 21:39. [facility], CR, XR CHEST 2 VIEWS, 11/05/2020, 10:55. [facility], CR, XR CHEST 1V, 10/08/2020, 16:04. [facility], CR, XR CHEST 2V, 09/16/2020, 15:17. FINDINGS: Surgical changes and devices: Prior plate and screw fixation of the mid-lateral right clavicle. Lungs and pleura: Lungs are clear. Suspect scarring present at the right costophrenic angle on the frontal view, with no definite pleural effusion visualized on the lateral view. Mild elevation of the right hemidiaphragm. Mediastinum: Mediastinal contours are normal. Heart size is normal. Bones and chest wall: No suspicious bony abnormalities. Soft tissues appear unremarkable. IMPRESSION: No acute cardiopulmonary abnormality. Dictated by: Channing Lugo M.D. on 03/18/2022 at 15:46 Approved by: Channing Lugo M.D. on 03/18/2022 at 15:49
== END ==
PROVIDERS: PCP Family Medicine; Referring Provider Family Medicine; Visit Provider Family Medicine
DX: R07.9 Chest pain, unspecified (principal); Z98.890 Other specified postprocedural states
CPT/HCPCS: 71046

== ENCOUNTER 2022-04-14 20:26 | Emergency (ER) | payer OTHER, MEDICAID, SELFPAY ==
[2022-04-14 20:33] VITALS: BP 170/109; PULSE 102; RESP 18; TEMP 36.6; O2SAT 100; BMI 38.0
[2022-04-14] MEDS: BACITRACIN OINT 0.9 GM PCKT 1 APPLIC TOP (20:45)
[2022-04-14] MEDS: TET,DIPH,PERTUSS(ACELL),VAC/PF 0.5 ML SYRINGE IM (20:45)
--- NOTE | 2022-04-15 02:15 | ED.WOUNDLAC ---
HPI - Wound/Laceration General Chief Complaint: Wound/Laceration Stated Complaint: gash on rt thumb Time Seen by Provider: 04/14/22 20:30 Source: patient and family Mode of arrival: Ambulatory History of Present Illness HPI narrative: 26-year-old male former smoker with history of hypertension, depression, anxiety presents with an injury to the dorsum of his right thumb while at work earlier today. He states that he got it caught under a Gomez and suffered a laceration over his finger, he washed it out and put some [id number] skin adhesive on it but once he discussed with his significant other she encouraged him to come and see us. He has full range of motion of his thumb denies any numbness, tingling or weakness. He denies any ongoing bleeding and has no other injury. He states his tetanus will need to be updated. He is otherwise well and free of complaint. Related Data Home Medications Medication Instructions Recorded Confirmed ibuprofen 200 mg tablet 1,000 mg PO Q6H PRN Pain (Scale 09/24/20 03/31/22 Score 1-3) Previous Rx's Medication Instructions Recorded prednisone 20 mg tablet 20 mg PO DAILY #30 tabs 03/18/21 allopurinol 300 mg tablet 300 mg PO DAILY #90 tabs 06/20/21 lisinopril 20 mg tablet 20 mg PO QDAY #90 ea 03/23/22 Allergies Allergy/AdvReac Type Severity Reaction Status Date / Time No Known Drug Allergies Allergy Verified 03/31/22 13:54 Review of Systems Review of Systems Narrative: GENERAL: Denies chills, fatigue, malaise, fever, sweats. HEENT: Denies sinus pain, ear pain, sore throat, difficulty swallowing, dizziness. RESPIRATORY: Denies dyspnea, cough, wheezing, hemoptysis, sputum. CARDIOVASCULAR: Denies chest pain, palpitations, orthopnea, edema, GASTROINTESTINAL: Denies nausea, vomiting, abdominal pain, diarrhea, constipation, melena. : Denies dysuria, frequency, incontinence, hematuria, urinary retention. MUSCULOSKELETAL: See HPI SKIN: Denies rash, skin lesions, or other NEUROLOGIC: Denies weakness, headache, numbness, change in speech, confusion, seizures, incoordination. PSYCHIATRIC: No concerning psychosocial issues. 12 point review of systems is negative except for those stated above Patient History Medical History (Updated 02/07/23 @ 20:39 by Tristan Montanez DO) Achilles tendinitis of right lower extremity Achilles tendinitis, left leg Ankle pain Ankle swelling Asthma (2004) Bilateral Achilles tendonosis Chronic ankle pain Decreased visual acuity Eczema (1997) Fractures (2009) Gout Hearing loss (1997) Hyperglycemia Left ankle pain Left wrist sprain Lung mass Surgical History Anesthesia History of orthopedic surgery History of tonsillectomy Family History Father Age: 52 Hypertension Grandfather Cancer Hypertension High cholesterol Grandmother Age: 76 Heart disease Hypertension High cholesterol Diabetes mellitus Sister Age: 33 Mental health problem Grandfather No problems noted. Grandmother No problems noted. Mother No problems noted. Sister No problems noted. Social History household members: spouse Smoking Status: Former smoker Smoking Status: Former smoker alcohol intake frequency: a few times a month Substance Use Type: marijuana and other Exam Narrative Exam Narrative: GEN: AOx3 and in mild distress EYES: Pupils are equal, round, and reactive to light and accommodation. Extraoccular muscles are intact bilaterally. There is no subconjunctival hemorrhage or exudate. CHEST: Lungs are clear to auscultation bilaterally and free of wheezes, rales, or rhonchi. Heart rate is regular rhythm, there are no murmurs, clicks, rubs, or gallops. There is no chest wall tenderness. ABD: Abdomen is soft and nontender. There is no guarding or rebound. Bowel sounds are normal in all 4 quadrants. There is no mass or organomegaly. EXT: Right thumb with 1.5 cm laceration on dorsum of thumb just distal to metacarpophalangeal joint, no active bleeding, visualized in a bloodless field, no tendon glide, no evidence of foreign body Full painless ROM of all extremities with no loss of sensation or strength. SKIN: Warm, pink, and dry. No erythema or rash Initial Vital Signs Initial Vital Signs: Vital Signs Temperature 97.9 F 04/14/22 20:33 Pulse Rate 102 H 04/14/22 20:33 Respiratory Rate 18 04/14/22 20:33 Blood Pressure 170/109 H 04/14/22 20:33 Pulse Oximetry 100 04/14/22 20:33 Oxygen Delivery Method 04/14/22 20:33 Procedures Laceration Repair Laceration 1: Site: hand Side (If applicable): right Size (cm): 1.5 Description: linear Depth: simple, single layer Local Anesthetic: lidocaine 2% Amount of anesthesia used (mL): 3 Pre-repair: wound explored, irrigated extensively and cleansed with chlorhexadine Skin layer closed with: nylon Skin layer suture size: 4-0 Number of sutures: 2 Technique: simple, interrupted Course Orders Ordered: Discontinued Medications Bacitracin (Bacitracin Oint 0.9 Gm Pckt) 1 applic TOP NOW ONE Stop: 04/14/22 20:44 Last Admin: 04/14/22 20:45 Dose: 1 applic Documented By: VENANCIO Diphtheria/Tetanus/Acell Pertussis (Tet,Diph,Pertuss(Acell),Vac/Pf 0.5 Ml Syringe) 0.5 ml IM .ONCE ONE Stop: 04/14/22 20:39 Last Admin: 04/14/22 20:45 Dose: 0.5 ml Documented By: VENANCIO Vital Signs Vital signs: Vital Signs - 8 hr 04/14/22 20:33 Temperature 97.9 F Pulse Rate 102 H Respiratory Rate 18 Blood Pressure 170/109 H Pulse Oximetry 100 Oxygen Delivery Method Room Air MDM - Wound/Laceration MDM Narrative Medical decision making narrative: [26 male with laceration on dorsum of right thumb without ongoing bleeding, suspected foreign body or decreased range of motion] Multiple etiologies for patient's symptoms considered including, but not limited to: [Laceration] Prior Charts reviewed: Prior notes and EMR had been evaluated Patient with laceration on right thumb suffered earlier today that had been attempted to close by skin adhesive. This was 1st anesthetized, cleansed with chlorhexidine and then petroleum based bacitracin used to remove any remnants of adhesive which was actually done quite easily, cleaned to the base, bleeding started again, no evidence of tendon involvement or foreign body, full range of motion without loss of sensation or strength. He is a repaired with 2 sutures, tetanus updated Findings and discharge diagnosis discussed with patient/family followed by verbalization of understanding Return precautions discussed with patient/family whom verbalize understanding of diagnosis and plan Discharge Plan Departure Patient Disposition: Home Clinical Impression: Laceration of right thumb Instructions: DI for Laceration Repair Activity Restrictions/Additional Instructions: Please keep the wound clean and dry to the best of your ability. Please monitor for signs of infection such as redness to the skin or increasing pain. Have the sutures/gerardo removed by your doctor in about 7 days. If you are unable to get into your doctor, we would be happy to remove the sutures/gerardo in that same timeframe. Prescriptions: No Action allopurinol 300 mg tablet 300 mg PO DAILY Qty: 90 1RF lisinopril 20 mg tablet 20 mg PO QDAY Qty: 90 3RF Rx Instructions: Take one tablet by mouth once a day. ibuprofen 200 mg Tablet 1,000 mg PO Q6H PRN (Reason: Pain (Scale Score 1-3)) prednisone 20 mg tablet 20 mg PO DAILY Qty: 30 0RF Rx Instructions: use as directed Referrals: Darien Schmitt MD [Primary Care Provider] - Stand Alone Forms: Patient Portal/API
== END 2022-04-14 20:58 | disposition home or self-care (01) ==
PROVIDERS: Emergency Provider Emergency Medicine; PCP Family Medicine
DX: S61.011A Laceration without foreign body of right thumb without damage to nail, initial encounter (principal); W26.9XXA Contact with unspecified sharp object(s), initial encounter; Z23 Encounter for immunization
CPT/HCPCS: 12001; 90471; 99283; 90715

== ENCOUNTER 2022-08-05 15:53 | Emergency (ER) | payer OTHER, SELFPAY ==
[2022-08-05 16:00] VITALS: BP 150/103; PULSE 83; RESP 18; TEMP 36.6; O2SAT 99; BMI 37.9
--- NOTE | 2022-08-05 16:06 | DI.RAD.S_ITS ---
PROCEDURE: XR CHEST 1V INDICATIONS: chest pain TECHNIQUE: One view of the chest was acquired. COMPARISON: [facility], CR, XR CHEST 2V, 03/18/2022, 11:03. FINDINGS: Surgical changes and devices: Right clavicular hardware is intact. Lungs and pleura: Lungs are clear. No pleural effusions or pneumothorax. Mediastinum: Mediastinal contours appear normal. Heart size is normal. Bones and chest wall: No suspicious bony lesions. Overlying soft tissues appear unremarkable. IMPRESSION: No acute cardiopulmonary findings. Dictated by: Jayna Viera M.D. on 08/05/2022 at 16:57 Approved by: Jayna Viera M.D. on 08/05/2022 at 16:57
[2022-08-05 16:32] LABS: Add Manual Diff / Slide Review NO; Basophils Absolute Auto 100 /uL (0-100); Basophils Percent Auto 0.6 % (0-2); Eosinophils Absolute Auto 700 /uL (0-450); Eosinophils Percent Auto 5.6 % (2-4); Hematocrit 43.8 % (41-53); Hemoglobin 14.7 g/dL (13.5-17.5); Lymphocytes Absolute Auto 2600 /uL (1100-4500); Mean Corpuscular HGB Conc 33.5 % (30-36); Mean Corpuscular Hemoglobin 26.4 PG (26-34); Mean Corpuscular Volume 78.8 fL (80-100); Monocytes Absolute Auto 1000 /uL (0-900); Monocytes Percent Auto 8.6 % (3-14); Neutrophils Absolute Auto 7500 /uL (1500-7000); Neutrophils Percent Auto 63.2 % (50-75); Platelet Count 331 X10^3/uL (150-400); Red Blood Cell Count 5.56 X10^6/uL (4.5-5.9); Red Cell Distribution Width 15.1 % (11.6-14.8); White Blood Cell Count 11.9 X10^3/uL (4.5-11.0)
[2022-08-05 16:42] LABS: Alanine Aminotransferase 53 IU/L (<50); Albumin 4.4 g/dL (3.5-5.0); Albumin Globulin Ratio 1.2 (1.0-2.8); Alkaline Phosphatase 46 U/L (38-126); Aspartate Aminotransferase 37 IU/L (17-59); BUN Creatinine Ratio 17.8 (6-22); Blood Urea Nitrogen 13 mg/dL (9-20); Calcium 8.6 mg/dL (8.4-10.2); Carbon Dioxide 23 mmol/L (22-32); Chloride 104 mmol/L (98-107); Creatine Kinase 894 U/L (55-170); Estimated Glomerular Filt Rate > 60 mL/min (>60); Globulin 3.6 g/dL (1.7-4.1); Glucose 103 mg/dL (70-100); HEMOLYSIS 18 (0-50); Lipase 30 U/L (23-300); Magnesium 1.6 mg/dL (1.6-2.3); Potassium 3.9 mmol/L (3.4-5.1); Sodium 138 mmol/L (137-145)
[2022-08-05 16:48] LABS: PTT Partial Thromboplastin Tim 37 SECONDS (26-36)
[2022-08-05 16:52] LABS: Troponin I 0.017 ng/mL (0.01-0.034)
[2022-08-05] MEDS: ASPIRIN 81 MG CHEW TAB 324 MG PO (17:02)
[2022-08-05 19:01] LABS: Troponin I 0.017 ng/mL (0.01-0.034)
--- NOTE | 2022-08-05 19:59 | ED.CHESTPAIN ---
HPI - Chest Pain General Chief Complaint: Chest Pain Stated Complaint: chest pain Time Seen by Provider: 08/05/22 19:00 Source: patient Mode of arrival: Ambulatory Limitations: no limitations History of Present Illness HPI narrative: Patient is a 27-year-old male. Does have a history of high blood pressure. Over the weekend was doing quite a bit of shoveling. Has been moving dirt and other objects. He is developed some chest discomfort across his chest and also in his upper back. Does hurt when he takes a deep breath. He did not take his blood pressure medications today. He was concerned about his heart given his high blood pressure history. Was not 1 specific incident that caused the discomfort. Has been taking Tylenol and ibuprofen which helps somewhat. Related Data Home Medications Medication Instructions Recorded Confirmed ibuprofen 200 mg tablet 1,000 mg PO Q6H PRN Pain (Scale 09/24/20 03/31/22 Score 1-3) Previous Rx's Medication Instructions Recorded prednisone 20 mg tablet 20 mg PO DAILY #30 tabs 03/18/21 allopurinol 300 mg tablet 300 mg PO DAILY #90 tabs 06/20/21 lisinopril 20 mg tablet 20 mg PO QDAY #90 ea 03/23/22 Allergies Allergy/AdvReac Type Severity Reaction Status Date / Time No Known Drug Allergies Allergy Verified 03/31/22 13:54 Review of Systems Constitutional Constitutional: Reports system reviewed and no additional complaints, except as documented Cardiovascular Cardiovascular: Reports system reviewed and no additional complaints, except as documented Respiratory Respiratory: Reports system reviewed and no additional complaints, except as documented Gastrointestinal Gastrointestinal: Reports system reviewed and no additional complaints, except as documented Musculoskeletal Musculoskeletal: Reports system reviewed and no additional complaints, except as documented Integumentary/Breasts Skin/Breast: Reports system reviewed and no additional complaints, except as documented Neurologic Neurologic: Reports system reviewed and no additional complaints, except as documented Hematologic/Lymphatic On Anticoagulants: No Patient History Medical History Achilles tendinitis of right lower extremity Achilles tendinitis, left leg Ankle pain Ankle swelling Asthma (2004) Bilateral Achilles tendonosis Chronic ankle pain Decreased visual acuity Eczema (1997) Fractures (2009) Gout Hearing loss (1997) Hyperglycemia Left ankle pain Left wrist sprain Lung mass Surgical History Anesthesia History of orthopedic surgery History of tonsillectomy Family History Father Age: 53 Hypertension Grandfather Cancer Hypertension High cholesterol Grandmother Age: 77 Heart disease Hypertension High cholesterol Diabetes mellitus Sister Age: 34 Mental health problem Grandfather No problems noted. Grandmother No problems noted. Mother No problems noted. Sister No problems noted. Social History household members: spouse Smoking Status: Former smoker Smoking Status: Former smoker alcohol intake frequency: a few times a month Substance Use Type: marijuana and other Exam Initial Vital Signs Initial Vital Signs: Vital Signs Temperature 98 F 08/05/22 16:00 Pulse Rate 83 08/05/22 16:00 Respiratory Rate 18 08/05/22 16:00 Blood Pressure 150/103 H 08/05/22 16:00 Pulse Oximetry 99 08/05/22 16:00 Oxygen Delivery Method Room Air 08/05/22 16:00 Const General: cooperative, comfortable and No ill appearing HENMT Head: normal to inspection and normocephalic Resp Effort & Inspection: normal respiratory effort Auscultation: clear to auscultation bilaterally Cardio Rate: regular rate Rhythm: regular rhythm GI Inspection: normal to inspection Skin General: no rashes or lesions noted Lesions: no lesions Neuro General: patient alert, patient awake and moves all extremities Extrem General: normal to inspection Scores HEART Score Heart Score history: Slightly Suspicious Heart Score EKG: Normal Heart Score Age: < 45 years old Heart Score risk factors: 1-2 risk factors Heart Score troponin: < or = to normal limit Heart Score Total: 1 Course Orders Ordered: ED Orders 08/05/22 18:25 Trop I [Troponin I] Stat 08/05/22 18:33 EKG-12 Lead Stat Discontinued Medications Aspirin (Aspirin 81 Mg Chew Tab) 324 mg PO NOW ONE Stop: 08/05/22 16:07 Last Admin: 08/05/22 17:02 Dose: 324 mg Documented By: MAXINE Vital Signs Vital signs: Vital Signs - 8 hr 08/05/22 20:07 Pulse Rate 77 Blood Pressure 155/105 H Pulse Oximetry 100 Oxygen Delivery Method Room Air MDM - Chest Pain Lab Data Attestation: I reviewed the patient's lab results. 08/05/22 16:20 08/05/22 16:20 Labs: Lab Results 08/05/22 08/05/22 08/05/22 Range/Units 16:20 16:20 16:20 WBC 11.9 H (4.5-11.0) X10^3/uL RBC 5.56 (4.5-5.9) X10^6/uL Hgb 14.7 (13.5-17.5) g/dL Hct 43.8 (41-53) % MCV 78.8 L (80-100) fL MCH 26.4 (26-34) PG MCHC 33.5 (30-36) % RDW 15.1 H (11.6-14.8) % Plt Count 331 (150-400) X10^3/uL Neut % (Auto) 63.2 (50-75) % Lymph % (Auto) 22.0 L (25-40) % [place] % (Auto) 8.6 (3-14) % Eos % (Auto) 5.6 H (2-4) % Baso % (Auto) 0.6 (0-2) % Neut # (Auto) 7500 H (4045-1334) /uL Lymph # (Auto) 2600 (9230-6465) /uL [place] # (Auto) 1000 H (0-900) /uL Eos # (Auto) 700 H (0-450) /uL Baso # (Auto) 100 (0-100) /uL PT 12.0 (10.1-12.7) SECONDS INR 1.0 (0.9-1.3) APTT 37 H (26-36) SECONDS Sodium 138 (137-145) mmol/L Potassium 3.9 (3.4-5.1) mmol/L Chloride 104 (98-107) mmol/L Carbon Dioxide 23 (22-32) mmol/L BUN 13 (9-20) mg/dL Creatinine 0.73 (0.66-1.25) mg/dL Estimated GFR > 60 (>60) mL/min BUN/Creatinine Ratio 17.8 (6-22) Glucose 103 H (70-100) mg/dL Calcium 8.6 (8.4-10.2) mg/dL Magnesium 1.6 (1.6-2.3) mg/dL Total Bilirubin 1.0 (0.2-1.3) mg/dL AST 37 (17-59) IU/L ALT 53 H (<50) IU/L Alkaline Phosphatase 46 (38-126) U/L Total Creatine Kinase 894 H (55-170) U/L CK-MB (CK-2) TNP CK-MB (CK-2) Rel Index TNP Troponin I 0.017 (0.01-0.034) ng/mL Total Protein 8.0 (6.3-8.2) g/dL Albumin 4.4 (3.5-5.0) g/dL Globulin 3.6 (1.7-4.1) g/dL Albumin/Globulin Ratio 1.2 (1.0-2.8) Lipase 30 (23-300) U/L 08/05/22 Range/Units 18:25 WBC (4.5-11.0) X10^3/uL RBC (4.5-5.9) X10^6/uL Hgb (13.5-17.5) g/dL Hct (41-53) % MCV (80-100) fL MCH (26-34) PG MCHC (30-36) % RDW (11.6-14.8) % Plt Count (150-400) X10^3/uL Neut % (Auto) (50-75) % Lymph % (Auto) (25-40) % [place] % (Auto) (3-14) % Eos % (Auto) (2-4) % Baso % (Auto) (0-2) % Neut # (Auto) (7750-9272) /uL Lymph # (Auto) (4627-5149) /uL [place] # (Auto) (0-900) /uL Eos # (Auto) (0-450) /uL Baso # (Auto) (0-100) /uL PT (10.1-12.7) SECONDS INR (0.9-1.3) APTT (26-36) SECONDS Sodium (137-145) mmol/L Potassium (3.4-5.1) mmol/L Chloride (98-107) mmol/L Carbon Dioxide (22-32) mmol/L BUN (9-20) mg/dL Creatinine (0.66-1.25) mg/dL Estimated GFR (>60) mL/min BUN/Creatinine Ratio (6-22) Glucose (70-100) mg/dL Calcium (8.4-10.2) mg/dL Magnesium (1.6-2.3) mg/dL Total Bilirubin (0.2-1.3) mg/dL AST (17-59) IU/L ALT (<50) IU/L Alkaline Phosphatase (38-126) U/L Total Creatine Kinase (55-170) U/L CK-MB (CK-2) CK-MB (CK-2) Rel Index Troponin I 0.017 (0.01-0.034) ng/mL Total Protein (6.3-8.2) g/dL Albumin (3.5-5.0) g/dL Globulin (1.7-4.1) g/dL Albumin/Globulin Ratio (1.0-2.8) Lipase (23-300) U/L Imaging Data Chest x-ray: Radiologist's Impression: PROCEDURE:? XR CHEST 1V ? INDICATIONS:? chest pain ? TECHNIQUE:? One view of the chest was acquired.? ? COMPARISON:? [facility], , XR CHEST 2V, 03/18/2022, 11:03. ? FINDINGS:? ? Surgical changes and devices:? Right clavicular hardware is intact. ? Lungs and pleura:? Lungs are clear.? No pleural effusions or pneumothorax.? ? Mediastinum:? Mediastinal contours appear normal.? Heart size is normal.? ? Bones and chest wall:? No suspicious bony lesions.? Overlying soft tissues appear unremarkable.? ? IMPRESSION:? No acute cardiopulmonary findings. ECG Data Attestation: I personally reviewed and interpreted this ECG as follows: Interpretation: Initial EKG Sinus rhythm Ventricular rate 81 First-degree AV block with a ID interval of 212 milliseconds Normal QRS Normal QTC No ST T wave changes Repeat EKG Sinus rhythm Ventricular rate is 77 ID interval 206 milliseconds Normal QRS Normal QTC No ST T wave changes MDM Narrative Medical decision making narrative: Low risk heart score, 2 negative troponins, chest x-ray is unremarkable, EKG is unremarkable to include repeat. Low suspicion for ACS. Higher suspicion that this is musculoskeletal in etiology given his presentation in the circumstances of the past couple days when he has been out working. No indication to change any of his medications. Will discharge patient home. He was given return precautions. He expressed understanding and agreement. Discharge Plan Departure Patient Disposition: Home Clinical Impression: Upper back pain Instructions: Thoracic Back Pain Activity Restrictions/Additional Instructions: You can continue to take all of your medications as directed to include the Tylenol and ibuprofen. Contact your primary doctor for follow-up. Return to the emergency department for new or worsening symptoms. Prescriptions: No Action allopurinol 300 mg tablet 300 mg PO DAILY Qty: 90 1RF lisinopril 20 mg tablet 20 mg PO QDAY Qty: 90 3RF Rx Instructions: Take one tablet by mouth once a day. ibuprofen 200 mg Tablet 1,000 mg PO Q6H PRN (Reason: Pain (Scale Score 1-3)) prednisone 20 mg tablet 20 mg PO DAILY Qty: 30 0RF Rx Instructions: use as directed Referrals: Darien Schmitt MD [Primary Care Provider] - Stand Alone Forms: Patient Portal/API
[2022-08-05 20:07] VITALS: BP 155/105; PULSE 77; O2SAT 100
== END 2022-08-05 20:07 | disposition home or self-care (01) ==
PROVIDERS: Emergency Medicine; Emergency Provider Emergency Medicine; PCP Family Medicine
DX: M54.6 Pain in thoracic spine (principal); R07.89 Other chest pain
CPT/HCPCS: 36415; 71045; 80053; 82550; 83690; 83735; 84484; 85025; 85610; 85730; 93005; 93010; 99283; 99284

== ENCOUNTER 2022-08-23 21:56 | Emergency (ER) | payer OTHER, MEDICAID, SELFPAY ==
[2022-08-23 21:59] VITALS: BP 176/109; PULSE 100; RESP 18; TEMP 37.2; O2SAT 100; BMI 39.1
--- NOTE | 2022-08-24 01:46 | ED.BACK ---
HPI - Back Pain/Injury General Chief Complaint: Back Pain/Injury Stated Complaint: Back Time Seen by Provider: 08/24/22 01:46 Source: patient History of Present Illness HPI Narrative: 27-year-old gentleman with a history of hypertension and congenital hearing loss who presents complaining of back pain. Notes that on the he had been lifting some heavy logs in his yd and over the course of the day felt some increasing tightness in his low back. That evening he took some ibuprofen and felt that it was improving. On Wednesday continued to have some pain that was manageable. Today he had pain significant enough that he is having difficulty walking. No paresthesias or weakness. He has not taken any additional ibuprofen or Tylenol since the . Comes in for further evaluation. He notes that he is never had similar findings. Complains of significant muscle spasm. No nausea, vomiting, diarrhea, abdominal pain. No specific trauma, he has no history of IV drug use or recent spinal instrumentation. Related Data Home Medications Medication Instructions Recorded Confirmed ibuprofen 200 mg tablet 1,000 mg PO Q6H PRN Pain (Scale 09/24/20 03/31/22 Score 1-3) Previous Rx's Medication Instructions Recorded prednisone 20 mg tablet 20 mg PO DAILY #30 tabs 03/18/21 allopurinol 300 mg tablet 300 mg PO DAILY #90 tabs 06/20/21 lisinopril 20 mg tablet 20 mg PO QDAY #90 ea 03/23/22 diazepam 5 mg tablet 5 mg PO BEDTIME PRN muscle spasm 08/24/22 #7 tabs Allergies Allergy/AdvReac Type Severity Reaction Status Date / Time No Known Drug Allergies Allergy Verified 03/31/22 13:54 Review of Systems Review of Systems Narrative: Pertinent positive and negative findings as per HPI Patient History Medical History Achilles tendinitis of right lower extremity Achilles tendinitis, left leg Ankle pain Ankle swelling Asthma (2004) Bilateral Achilles tendonosis Chronic ankle pain Decreased visual acuity Eczema (1997) Fractures (2009) Gout Hearing loss (1997) Hyperglycemia Left ankle pain Left wrist sprain Lung mass Surgical History Anesthesia History of orthopedic surgery History of tonsillectomy Family History Father Age: 53 Hypertension Grandfather Cancer Hypertension High cholesterol Grandmother Age: 77 Heart disease Hypertension High cholesterol Diabetes mellitus Sister Age: 34 Mental health problem Grandfather No problems noted. Grandmother No problems noted. Mother No problems noted. Sister No problems noted. Social History household members: spouse Smoking Status: Former smoker Smoking Status: Former smoker alcohol intake frequency: a few times a month Substance Use Type: marijuana and other Exam Initial Vital Signs Initial Vital Signs: Vital Signs Temperature 99 F 08/23/22 21:59 Pulse Rate 100 H 08/23/22 21:59 Respiratory Rate 18 08/23/22 21:59 Blood Pressure 176/109 H 08/23/22 21:59 Pulse Oximetry 100 08/23/22 21:59 Oxygen Delivery Method Room Air 08/23/22 21:59 General: Healthy appearing, in no acute distress long as he is seated comfortably.. Able to give a complete and coherent history. Well-nourished well-developed HEENT: Moist mucous membranes, normal sclera with reactive pupils, Respiratory: Lungs are clear to auscultation, no wheezing no rales no rhonchi. Full and symmetrical air movement Cardiac: Regular rate and rhythm no murmurs no bruits Abdomen: Soft, nontender, good bowel tones, no flank pain Spine: Muscle spasm is visible and palpable bilaterally at approximately L2-3 level. There is no skin changes, no erythema and no midline tenderness. Skin: Warm and dry, no rashes Neurologic: Grossly neurologically intact with no obvious asymmetries or abnormalities. No significant tenderness with straight leg raising. Patellar and ankle jerk reflexes are within normal limits. He has no distal paresthesias. Extremities: No trauma, well perfused Psych: Cooperative, appropriate insight and affect Course Vital Signs Vital signs: Vital Signs - 8 hr 08/23/22 21:59 Temperature 99 F Pulse Rate 100 H Respiratory Rate 18 Blood Pressure 176/109 H Pulse Oximetry 100 Oxygen Delivery Method Room Air MDM - Back Pain/Injury MDM Narrative Medical decision making narrative: CC: Back pain, acute finding uncertain prognosis Complicating co-morbidities: Congenital hearing loss, hypertension Data collected from: patient, Differential considered: Muscle spasm, disc pathology, radicular findings, doubt cauda equina syndrome, no evidence of trauma and no suggestion of epidural abscess or diskitis Exam documented above, pertinent findings include: Paraspinous muscle spasm Lab Test not indicated today Imaging studies are not indicated in the absence of any red flag warnings for low back pain Discussion: 27-year-old gentleman otherwise essentially healthy no prior issues with back pain. Has some bilateral muscle spasms after lifting heavy logs last Wednesday. This is proximally 48 hours after the event which explains the peak of his pain at this point. He has not used any [id number] medications at this point. In the emergency department we negotiated IM Toradol and a single Percocet with significant pain relief. As the majority of his pain seems to be more spasm related will ask him to use ibuprofen and Tylenol with Valium for direct muscle spasm relief at nighttime if needed. Suggested gentle movement and consideration of physical therapy once he is feeling better. Questions are answered and he is safe for discharge home Discharge Plan Departure Patient Disposition: Home Clinical Impression: Spasm of muscle of lower back Instructions: DI for Back Spasm Activity Restrictions/Additional Instructions: Thank you for coming in today I am sorry that you strained her back. Fortunately, with your physical exam there is no suggestion that you have done any serious injury. Most injury such as such as these are going to be the worst 48 hours after the injury itself. They tend to get better over the next few days. Using 400 mg of ibuprofen (2 [id number] pills) and 1 Tylenol every 6 hours can be very helpful in controlling pain. For severe spasm at night I am going to give you a brief prescription of diazepam/Valium. This is a muscle relaxant. It will also help you sleep. Please do not drive or drink alcohol while you take this medication A prescription for this has been electronically sent to [facility] in [place] Please do make sure you are staying mobile as you are healing. You may also benefit from a physical therapy evaluation to set up a back strengthening and core strengthening program to prevent future injuries If you find that you are getting worse or develop any new symptoms, please feel free to return to the emergency department for further evaluation. Prescriptions: New diazepam 5 mg tablet 5 mg PO BEDTIME PRN (Reason: muscle spasm) Qty: 7 0RF No Action allopurinol 300 mg tablet 300 mg PO DAILY Qty: 90 1RF lisinopril 20 mg tablet 20 mg PO QDAY Qty: 90 3RF Rx Instructions: Take one tablet by mouth once a day. ibuprofen 200 mg Tablet 1,000 mg PO Q6H PRN (Reason: Pain (Scale Score 1-3)) prednisone 20 mg tablet 20 mg PO DAILY Qty: 30 0RF Rx Instructions: use as directed Referrals: Darien Schmitt MD [Primary Care Provider] - Stand Alone Forms: Patient Portal/API
[2022-08-24] MEDS: OXYCODONE/ACETAMINOPHEN 5/325 TABLET 1 TAB PO (02:04)
[2022-08-24] MEDS: KETOROLAC 30 MG/ML VIAL IM (02:15)
[2022-08-24 02:26] VITALS: BP 178/84; PULSE 88; RESP 16; TEMP 36.6; O2SAT 99
== END 2022-08-24 02:29 | disposition home or self-care (01) ==
PROVIDERS: Emergency Provider Emergency Medicine; PCP Family Medicine
DX: M62.830 Muscle spasm of back (principal)
CPT/HCPCS: 96372; 99283; J1885

== ENCOUNTER 2022-08-25 18:48 | Emergency (ER) | payer OTHER, MEDICAID, SELFPAY ==
[2022-08-25 19:17] VITALS: BP 157/97; PULSE 88; RESP 18; TEMP 37.6; O2SAT 99; BMI 39.9
[2022-08-25 22:43] VITALS: BP 153/91; PULSE 87; RESP 16; O2SAT 98
--- NOTE | 2022-08-25 22:49 | ED.BACK ---
HPI - Back Pain/Injury General Chief Complaint: Back Pain/Injury Stated Complaint: Back pain Time Seen by Provider: 08/25/22 19:26 Source: patient Mode of arrival: Ambulatory History of Present Illness HPI Narrative: Patient is a 27-year-old male who is here for evaluation of back discomfort. States that he hurt it after he was lifting some heavy things several days ago. He was seen here in the emergency department a couple days ago. Was diagnosed with a muscle strain. Was sent home with anti-inflammatories. He states his symptoms have continued. No urinary symptoms. No fevers. He states he is pressure on his spine. Related Data Home Medications Medication Instructions Recorded Confirmed ibuprofen 200 mg tablet 1,000 mg PO Q6H PRN Pain (Scale 09/24/20 03/31/22 Score 1-3) Previous Rx's Medication Instructions Recorded prednisone 20 mg tablet 20 mg PO DAILY #30 tabs 03/18/21 allopurinol 300 mg tablet 300 mg PO DAILY #90 tabs 06/20/21 lisinopril 20 mg tablet 20 mg PO QDAY #90 ea 03/23/22 diazepam 5 mg tablet 5 mg PO BEDTIME PRN muscle spasm 08/24/22 #7 tabs Allergies Allergy/AdvReac Type Severity Reaction Status Date / Time No Known Drug Allergies Allergy Verified 03/31/22 13:54 Review of Systems Constitutional Constitutional: Reports system reviewed and no additional complaints, except as documented Gastrointestinal Gastrointestinal: Reports system reviewed and no additional complaints, except as documented Genitourinary Genitourinary: Reports system reviewed and no additional complaints, except as documented Musculoskeletal Musculoskeletal: Reports system reviewed and no additional complaints, except as documented Integumentary/Breasts Skin/Breast: Reports system reviewed and no additional complaints, except as documented Patient History Medical History Achilles tendinitis of right lower extremity Achilles tendinitis, left leg Ankle pain Ankle swelling Asthma (2004) Bilateral Achilles tendonosis Chronic ankle pain Decreased visual acuity Eczema (1997) Fractures (2009) Gout Hearing loss (1997) Hyperglycemia Left ankle pain Left wrist sprain Lung mass Surgical History Anesthesia History of orthopedic surgery History of tonsillectomy Family History Father Age: 53 Hypertension Grandfather Cancer Hypertension High cholesterol Grandmother Age: 77 Heart disease Hypertension High cholesterol Diabetes mellitus Sister Age: 34 Mental health problem Grandfather No problems noted. Grandmother No problems noted. Mother No problems noted. Sister No problems noted. Social History household members: spouse Smoking Status: Former smoker Smoking Status: Former smoker alcohol intake frequency: a few times a month Substance Use Type: marijuana and other Exam Initial Vital Signs Initial Vital Signs: Vital Signs Temperature 99.6 F 08/25/22 19:17 Pulse Rate 88 08/25/22 19:17 Respiratory Rate 18 08/25/22 19:17 Blood Pressure 157/97 H 08/25/22 19:17 Pulse Oximetry 99 08/25/22 19:17 Oxygen Delivery Method Room Air 08/25/22 19:17 Back/Spine/Pelvis Cervical Spine: No cervical spinal tenderness Thoracic/Lumbar Spine: paraspinal tenderness, No thoracic spinal tenderness and lumbar spinal tenderness Neuro General: patient alert and patient awake Gait: normal gait Extrem General: normal to inspection and capillary refill normal Course Orders Ordered: ED Orders 08/25/22 22:50 XR lumbar spine 2-3V Stat Discontinued Medications Hydrocodone Bitart/Acetaminophen (Hydrocodone/Acet 5/325 Prepack) 1 bottle MISC SEEINSTR ONE Stop: 08/26/22 00:24 Last Admin: 08/26/22 00:28 Dose: 1 bottle Documented By: Hydromorphone HCl (Hydromorphone 1 Mg Inj) 1 mg IM NOW ONE Stop: 08/25/22 22:51 Last Admin: 08/25/22 22:53 Dose: 1 mg Documented By: Vital Signs Vital signs: Vital Signs - 8 hr 08/25/22 22:43 08/26/22 00:17 Temperature 98.2 F Pulse Rate 87 84 Respiratory Rate 16 16 Blood Pressure 153/91 H 160/93 H Pulse Oximetry 98 97 Oxygen Delivery Method Room Air Room Air MDM - Back Pain/Injury Imaging Data lumbar spine: Radiologist's Impression: PROCEDURE:? XR LUMBAR SPINE 2-3V ? INDICATIONS:? midline LBP after lifting ? TECHNIQUE:? 3 views of the lumbar spine were acquired.? ? COMPARISON:? None. ? FINDINGS:? ? Bones:? There is preserved bony alignment.? No fractures or subluxation.? There is mild facet arthropathy in the lower lumbar spine at L5-S1.? Moderate disc space narrowing also demonstrated at L5-S1. ? Soft tissues:? Overlying bowel gas pattern is normal.? No suspicious soft tissue calcifications.? ? ? IMPRESSION:? ? 1. No acute bony abnormality. ? 2. Mild degenerative disc disease and facet arthropathy in the lower lumbar spine MDM Narrative Medical decision making narrative: X-ray show no signs of fracture. Low suspicion cauda equina. I do suspect musculoskeletal in origin. Patient reports improvement of symptoms after pain medication. Did discuss the importance of staying active. Discussed the importance of using anti-inflammatories. Pain control as needed. No further workup required in the emergency department. He was given return precautions. He expressed understanding and agreement. Discharge Plan Departure Patient Disposition: Home Clinical Impression: Lumbar back pain Instructions: DI for Low Back Pain Activity Restrictions/Additional Instructions: The x-ray today did not show any signs of a fracture. I do recommend that you continue to take an anti-inflammatory such as Motrin/ibuprofen or Naprosyn. Conservative measures such as heat/ice or massage can be helpful as well. Use the pain medications sparingly. Return to the emergency department for new or worsening symptoms. Prescriptions: No Action allopurinol 300 mg tablet 300 mg PO DAILY Qty: 90 1RF lisinopril 20 mg tablet 20 mg PO QDAY Qty: 90 3RF Rx Instructions: Take one tablet by mouth once a day. diazepam 5 mg tablet 5 mg PO BEDTIME PRN (Reason: muscle spasm) Qty: 7 0RF ibuprofen 200 mg Tablet 1,000 mg PO Q6H PRN (Reason: Pain (Scale Score 1-3)) prednisone 20 mg tablet 20 mg PO DAILY Qty: 30 0RF Rx Instructions: use as directed Referrals: Darien Schmitt MD [Primary Care Provider] - Stand Alone Forms: Patient Portal/API
--- NOTE | 2022-08-25 22:50 | DI.RAD.S_ITS ---
PROCEDURE: XR LUMBAR SPINE 2-3V INDICATIONS: midline LBP after lifting TECHNIQUE: 3 views of the lumbar spine were acquired. COMPARISON: None. FINDINGS: Bones: There is preserved bony alignment. No fractures or subluxation. There is mild facet arthropathy in the lower lumbar spine at L5-S1. Moderate disc space narrowing also demonstrated at L5-S1. Soft tissues: Overlying bowel gas pattern is normal. No suspicious soft tissue calcifications. IMPRESSION: 1. No acute bony abnormality. 2. Mild degenerative disc disease and facet arthropathy in the lower lumbar spine. Dictated by: Vernon Ruvalcaba M.D. on 08/26/2022 at 0:07 Approved by: Vernon Ruvalcaba M.D. on 08/26/2022 at 0:10
[2022-08-25] MEDS: HYDROMORPHONE 1 MG INJ IM (22:53)
[2022-08-26 00:17] VITALS: BP 160/93; PULSE 84; RESP 16; TEMP 36.8; O2SAT 97
[2022-08-26] MEDS: HYDROCODONE/ACET 5/325 PREPACK 1 BOTTLE MISC (00:28)
== END 2022-08-26 00:31 | disposition home or self-care (01) ==
PROVIDERS: Emergency Provider Emergency Medicine; PCP Family Medicine
DX: M54.50 Low back pain, unspecified (principal)
CPT/HCPCS: 72100; 96372; 99283; 99284; J1170

== ENCOUNTER 2023-01-16 14:33 | Emergency (ER) | payer OTHER, SELFPAY ==
[2023-01-16 14:38] VITALS: BP 163/102; PULSE 83; RESP 18; TEMP 37.2; O2SAT 100; BMI 39.1
--- NOTE | 2023-01-16 14:44 | DI.RAD.S_ITS ---
PROCEDURE: XR HAND RT MIN 3V INDICATIONS: swelling and pain TECHNIQUE: 3 views of the hand(s) acquired. COMPARISON: None. FINDINGS: Bones: No fractures or dislocations. Carpal bones are normally aligned. No suspicious bony lesions. Soft tissues: No suspicious soft tissue calcifications. Generalized soft tissue swelling IMPRESSION: Generalized soft tissue swelling without fracture or foreign body Approved by: Galdino Nieto M.D. on 01/16/2023 at 16:07
--- NOTE | 2023-01-16 15:34 | ED_ITS ---
HPI - Skin/Abscess/Foreign Bdy General Chief complaint: Skin/Abscess/Foreign Body Stated complaint: R/ hand swollen fingers and hand Time Seen by Provider: 01/16/23 15:34 Source: patient Mode of arrival: Ambulatory Limitations: no limitations History of Present Illness HPI narrative: Patient is a 27 here home male who presents today with right hand swelling and redness. He reports it has been there for a couple of days he was seen evaluated by walk-in clinic yesterday he was started on Keflex. He is supposed to take Keflex 3 times a day he took it twice yesterday once this morning he was instructed to put heat on it and the swelling is worse today. Can move his fingers but it does hurt. It is mostly over the 3rd 4th and 5th MCP. There is no streaking up arm. He denies any injury. 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 He is multiple tattoos but denies any of the tattoos are new. No fever or chills. No history of diabetes. He is right-hand dominant Related Data Home Medications Medication Instructions Recorded Confirmed ibuprofen 200 mg tablet 1,000 mg PO Q6H PRN Pain (Scale 09/24/20 03/31/22 Score 1-3) Previous Rx's Medication Instructions Recorded losartan 100 1 tab PO DAILY #90 tabs 10/26/22 mg-hydrochlorothiazide 12.5 mg tablet Allergies Allergy/AdvReac Type Severity Reaction Status Date / Time No Known Drug Allergies Allergy Verified 01/16/23 14:44 Review of Systems Review of Systems ROS Unobtainable: All systems reviewed & are unremarkable except as noted in HPI and below Patient History Medical History Gout Ankle swelling Chronic ankle pain Bilateral Achilles tendonosis Lung mass Hyperglycemia Left ankle pain Achilles tendinitis of right lower extremity Decreased visual acuity Hearing loss (1997) Eczema (1997) Fractures (2009) Asthma (2004) Ankle pain Left wrist sprain Achilles tendinitis, left leg Surgical History Anesthesia History of orthopedic surgery History of tonsillectomy Family History Father Age: 53 Hypertension Grandfather Cancer Hypertension High cholesterol Grandmother Age: 77 Heart disease Hypertension High cholesterol Diabetes mellitus Sister Age: 34 Mental health problem Grandfather No problems noted. Grandmother No problems noted. Mother No problems noted. Sister No problems noted. Social History household members: spouse Smoking Status: Current every day smoker Smoking Status: Current every day smoker tobacco type: smokeless tobacco alcohol intake frequency: a few times a month Substance Use Type: marijuana and other Exam Initial Vital Signs Initial Vital Signs: Vital Signs Temperature 98.9 F 01/16/23 14:38 Pulse Rate 83 01/16/23 14:38 Respiratory Rate 18 01/16/23 14:38 Blood Pressure 163/102 H 01/16/23 14:38 Pulse Oximetry 100 01/16/23 14:38 Oxygen Delivery Method Room Air 01/16/23 14:38 GENERAL: Well-appearing, well-nourished and in no acute distress. CARDIOVASCULAR: peripheral pulses in tact, cap refill <2 sec RESPIRATORY: No respiratory distress, speaks in full sentences without difficulty EXTREMITIES: Normal range of motion, no clubbing or edema. Neurovascularly intact NEUROLOGICAL: Cranial nerves II through XII grossly intact. Normal gait and speech. SKIN: Right hand mild erythema over 3rd 4th and 5th MCP it goes over dorsal side of hand. Fingers are not swollen or red he is able to move them. There is no streaking up the arm. It is blanchable no obvious fluctuation injury or laceration. Course Orders Ordered: ED Orders 01/16/23 14:44 XR hand RT min 3V Stat Vital Signs Vital signs: Vital Signs - 8 hr 01/16/23 14:38 01/16/23 15:49 Temperature 98.9 F 98.1 F Pulse Rate 83 82 Respiratory Rate 18 16 Blood Pressure 163/102 H 168/72 H Pulse Oximetry 100 98 Oxygen Delivery Method Room Air Room Air MDM - Skin/Abscess/Foreign Bdy MDM Narrative Medical decision making narrative: At this time patient has only taken 3 doses of Keflex he put heat on it all day yesterday is more swollen. We discussed elevation ice. I think reasonable to continue Keflex monitor it. He is given strict instructions and information about flexor tenosynovitis along with sepsis and infection. He understands. At this time I see no need for x-ray blood work or further evaluation. Discharge Plan Departure Patient Disposition: Home Clinical Impression: Cellulitis Instructions: DI for Cellulitis -- Adult Activity Restrictions/Additional Instructions: *You have been diagnosed with right hand cellulitis *What to do: At this time I recommend elevating as often as possible icing 20- 30 minutes at a time. Keep taking antibiotics. Should start working in the next couple of days. *Continue to take medications as directed Tylenol 650 mg every 4-6 hours if needed for rpca-[id number]-khtynthr pain Motrin 600 mg every 6 hours as needed for [id number] pain *Follow up with your primary care provider in 2-3 days or call [phone] *Return to ER if you should have increasing redness all the way up to the wrist streaking up the arm significant redness and swelling of finger fevers numbness tingling weakness or any new, worsening or concerning symptoms Prescriptions: No Action losartan-hydrochlorothiazide 100-12.5 mg tablet 1 tab PO DAILY Qty: 90 2RF ibuprofen 200 mg Tablet 1,000 mg PO Q6H PRN (Reason: Pain (Scale Score 1-3)) Referrals: Darien Schmitt MD [Primary Care Provider] - Stand Alone Forms: Patient Portal/API, Work Release Note
[2023-01-16 15:49] VITALS: BP 168/72; PULSE 82; RESP 16; TEMP 36.7; O2SAT 98
== END 2023-01-16 15:53 | disposition home or self-care (01) ==
PROVIDERS: Emergency Provider Emergency Medicine; PCP Family Medicine
DX: L03.113 Cellulitis of right upper limb (principal)
CPT/HCPCS: 73130; 99281; 99283

== ENCOUNTER 2023-05-01 22:49 | Emergency (ER) | payer OTHER, MEDICAID, SELFPAY ==
[2023-05-01 22:53] VITALS: BP 158/91; PULSE 91; RESP 18; TEMP 36.9; O2SAT 98; BMI 35.7
--- NOTE | 2023-05-01 23:00 | DI.RAD.S_ITS ---
PROCEDURE: XR FOOT LT MIN 3V INDICATIONS: Left foot pain x 3 weeks TECHNIQUE: 3 views of the foot were acquired. COMPARISON: [facility], CR, XR FOOT LT MIN 3V, 03/28/2021, 16:01. [facility], CR, XR FOOT LT MIN 3V, 06/14/2019, 0:55. FINDINGS: Bones: No fractures or dislocations. No suspicious bony lesions. Soft tissues: No tibiotalar joint effusion. Achilles tendon appears normal. IMPRESSION: No acute bony abnormality. Dictated by: Calvin Rubio M.D. on 05/01/2023 at 23:20 Approved by: Calvin Rubio M.D. on 05/01/2023 at 23:20
--- NOTE | 2023-05-01 23:00 | DI.RAD.S_ITS ---
PROCEDURE: XR ANKLE LT MIN 3V INDICATIONS: Left foot pain x 3 weeks TECHNIQUE: 3 views of the ankle were acquired. COMPARISON: [facility], CR, XR ANKLE RT MIN 3V, 03/28/2021, 16:01. [facility], CR, XR ANKLE LT MIN 3V, 06/14/2019, 0:55. FINDINGS: Bones: No fractures or dislocations. Ankle mortise is normally aligned. No suspicious bony lesions. Soft tissues: No tibiotalar joint effusion. Achilles tendon appears normal. IMPRESSION: No acute bony abnormality or significant effusion. Dictated by: Calvin Rubio M.D. on 05/01/2023 at 23:21 Approved by: Calvin Rubio M.D. on 05/01/2023 at 23:21
--- NOTE | 2023-05-02 01:36 | ED.EXTPRO ---
HPI - Extremity Problem General Chief complaint: Extremity Problem,Nontraumatic Stated complaint: foot swelling and pain Time Seen by Provider: 05/02/23 01:35 Source: patient and family Mode of arrival: Wheelchair History of Present Illness HPI Narrative: 27-year-old male with history of hypertension, does use tobacco, patient presents with complaint of foot swelling and redness that started over the pinky toe in his since traveled up over the dorsum of the foot and across over the past 3 weeks, was initially just localized to the toe but over the past week has spread. Patient states he does not recall any injuries. Does not recall any cuts or lacerations. No fevers or chills. He states painful to weightbear and with movement. Denies any numbness or tingling. Has not had significant issues with infections in the past. Was told he had gout once in the past but side gout specialist who told him that he did not have gout. Patient states he takes medication for blood pressure, denies other medical issues. As I had prior surgery for clavicle fracture. Does use tobacco, occasional alcohol, uses marijuana denies IV injection drugs. Patient has been taking Tylenol and ibuprofen for pain Related Data Home Medications Medication Instructions Recorded Confirmed ibuprofen 200 mg tablet 1,000 mg PO Q6H PRN Pain (Scale 09/24/20 03/31/22 Score 1-3) Previous Rx's Medication Instructions Recorded losartan 100 1 tab PO DAILY #90 tabs 10/26/22 mg-hydrochlorothiazide 12.5 mg tablet doxycycline hyclate 100 mg tablet 100 mg PO BID #20 tabs 05/02/23 Allergies Allergy/AdvReac Type Severity Reaction Status Date / Time No Known Drug Allergies Allergy Verified 01/16/23 14:44 Review of Systems Review of Systems ROS Unobtainable: All systems reviewed & are unremarkable except as noted in HPI and below Patient History Medical History Gout Ankle swelling Chronic ankle pain Bilateral Achilles tendonosis Lung mass Hyperglycemia Left ankle pain Achilles tendinitis of right lower extremity Decreased visual acuity Hearing loss (1997) Eczema (1997) Fractures (2009) Asthma (2004) Ankle pain Left wrist sprain Achilles tendinitis, left leg Surgical History Anesthesia History of orthopedic surgery History of tonsillectomy Family History Father Age: 53 Hypertension Grandfather Cancer Hypertension High cholesterol Grandmother Age: 77 Heart disease Hypertension High cholesterol Diabetes mellitus Sister Age: 34 Mental health problem Grandfather No problems noted. Grandmother No problems noted. Mother No problems noted. Sister No problems noted. Social History household members: spouse Smoking Status: Current every day smoker Smoking Status: Current every day smoker tobacco type: smokeless tobacco alcohol intake frequency: holidays/special occasions only Substance Use Type: marijuana and other Exam Narrative Exam Narrative: GENERAL: Alert and oriented x three, male in mild distress HEENT: Head normocephalic, atraumatic, EOMI, pupils reactive, face symmetric, moist mucous membranes NECK: Supple, full range of motion CARDIOVASCULAR: Regular rate and rhythm without murmurs, rubs or gallops. RESPIRATORY: Breath sounds equal bilaterally, no wheezes rales or rhonchi. ABDOMEN: Soft, nontender. Normoactive bowel sounds all 4 quadrants. No guarding or rebound, rigidity, no mass : No CVA tenderness EXTREMITIES: Normal range of motion, no clubbing Neurovascularly intact. Patient has edema of the dorsum of the left foot tracking from the right pinky toe over the dorsum of the foot towards the medial side. Not appreciated with the underside. Patient is tender in this area. No obvious ecchymosis, no lacerations punctures or clear injuries. Patient has normal sensation bilateral feet. No other bony tenderness throughout the lower extremity, ankle and toes. Mildly warm to touch. 2+ posterior tibialis pulses bilaterally. NEUROLOGICAL: Cranial nerves II through XII grossly intact. Moving all extremities SKIN: Warm, dry, no petechiae, see above. Initial Vital Signs Initial Vital Signs: Vital Signs Temperature 98.5 F 05/01/23 22:53 Pulse Rate 91 H 05/01/23 22:53 Respiratory Rate 18 05/01/23 22:53 Blood Pressure 158/91 H 05/01/23 22:53 Pulse Oximetry 98 05/01/23 22:53 Oxygen Delivery Method Room Air 05/01/23 22:53 Course Orders Ordered: ED Orders 02/24/24 23:00 XR ankle LT min 3V Stat XR foot LT min 3V Stat Discontinued Medications Doxycycline Hyclate (Doxycycline Hyclate 100 Mg Tablet) 100 mg PO NOW ONE Stop: 05/02/23 01:54 Last Admin: 05/02/23 02:03 Dose: 100 mg Documented By: ROE Vital Signs Vital signs: Vital Signs - 8 hr 05/01/23 22:53 05/02/23 02:15 Temperature 98.5 F 97.7 F Pulse Rate 91 H 64 Respiratory Rate 18 18 Blood Pressure 158/91 H 124/69 Pulse Oximetry 98 98 Oxygen Delivery Method Room Air Room Air MDM - Extremity (Nontraumatic) Imaging Data Extremity x-ray #1: Radiologist's Impression: Close Foot X-Ray (Signed) Calvin Rubio - 05/01/23 Ankle X-Ray (Signed) Calvin Rubio - 05/01/23 Hand X-Ray (Signed) Galdino Nieto - 01/16/23 Lumbar Spine X-Ray (Signed) Vernon Ruvalcaba - 08/25/22 Chest X-Ray (Signed) Jayna Viera - 08/05/22 Chest X-Ray (Signed) Channing Lugo - 03/18/22 DI Result CC 10/03/21 Foot X-Ray (Signed) Wilfred Veloz - 03/28/21 Foot X-Ray (Signed) Jarad Lee - 03/28/21 Ankle X-Ray (Signed) Star Jay - 03/28/21 Ankle X-Ray (Signed) Jovan Buckley - 03/28/21 Chest X-Ray (Signed) Adrianne Lassiter - 10/08/[address] (Signed) Adrianne Lassiter - 10/08/20 PET, Tumor Imaging Skull-Mid Thigh (Signed) Campbell Antony - 09/25/[address] (Signed) Campbell Antony - 09/19/20 Chest X-Ray (Signed) Adrianne Lassiter - 09/16/20 Foot MRI (Signed) Vernon Ruvalcaba - 01/23/20 Ankle MRI (Signed) Vernon Ruvalcaba - 01/23/20 Ankle MRI (Signed) Mohan Braxton - 10/10/19 Foot X-Ray (Signed) Favio Martinez - 06/14/19 Ankle X-Ray (Signed) Favio Martinez - 06/14/19 Ankle X-Ray (Signed) Jraad Lee - 07/27/18 Foot X-Ray (Signed) Campbell Antony - 02/26/18 Ankle X-Ray (Signed) Campbell Antony - 02/26/18 Foot X-Ray (Signed) Jarad Lee - 02/21/18 Launch?Image [address] [address] XRay Report Signed Patient: Siva Roberts MR#: [id number] : 1995 Acct:[id number] Age/Sex: 27 / M Date of Service: 05/01/23 Loc: ED Accession Number: [id number] Procedure: XR foot LT min 3V Ordering Provider: Mayra Chang D.O. PROCEDURE: XR FOOT LT MIN 3V INDICATIONS: Left foot pain x 3 weeks TECHNIQUE: 3 views of the foot were acquired. COMPARISON: [facility], CR, XR FOOT LT MIN 3V, 03/28/2021, 16:01. [facility], CR, XR FOOT LT MIN 3V, 06/14/2019, 0:55. FINDINGS: Bones: No fractures or dislocations. No suspicious bony lesions. Soft tissues: No tibiotalar joint effusion. Achilles tendon appears normal. IMPRESSION: No acute bony abnormality. Dictated by: Calvin Rubio M.D. on 05/01/2023 at 23:20 Approved by: Calvin Rubio M.D. on 05/01/2023 at 23:20 Extremity x-ray #2: Radiologist's Impression: [address] [address] XRay Report Signed Patient: Siva Roberts MR#: [id number] : 1995 Acct:[id number] Age/Sex: 27 / M Date of Service: 05/01/23 Loc: ED Accession Number: [id number] Procedure: XR ankle LT min 3V Ordering Provider: Mayra Chang D.O. PROCEDURE: XR ANKLE LT MIN 3V INDICATIONS: Left foot pain x 3 weeks TECHNIQUE: 3 views of the ankle were acquired. COMPARISON: [facility], CR, XR ANKLE RT MIN 3V, 03/28/2021, 16:01. [facility], CR, XR ANKLE LT MIN 3V, 06/14/2019, 0:55. FINDINGS: Bones: No fractures or dislocations. Ankle mortise is normally aligned. No suspicious bony lesions. Soft tissues: No tibiotalar joint effusion. Achilles tendon appears normal. IMPRESSION: No acute bony abnormality or significant effusion. Dictated by: Calvin Rubio M.D. on 05/01/2023 at 23:21 Approved by: Calvin Rubio M.D. on 05/01/2023 at 23:21 [facility] Narrative Medical decision making narrative: 27-year-old male with history of hypertension redness swelling that was initially localized over the pinky toe and has since spread over the dorsum over the past 3 weeks. Patient denies any recent injury. No lacerations or punctures. Does have some erythema and swelling seems most consistent with cellulitis. There is a note that he has had gout in the past but he states he saw gout specialist and told was he was did not. Patient's pattern of swelling and redness seems less consistent with gout and I would suspect more cellulitis. He did have x-ray imaging here although no trauma that he recalls which is negative. Plan for oral antibiotic, patient is not improving over the next 2-3 days follow up for recheck. Also discussed return precautions. Discharge Plan Departure Patient Disposition: Home Clinical Impression: Cellulitis of foot Instructions: DI for Cellulitis -- Adult Activity Restrictions/Additional Instructions: Follow up for recheck in the next 2-3 days if there is no improvement after 24-48 hours of antibiotics. You may take Tylenol up to a 1000 mg every 6 hours for pain and/or ibuprofen up to 600 mg every 6 hours. Take oral antibiotics until completed. Prescription was sent to [facility] in [place]. Please return for fevers, rapidly worsening redness, swelling, pain, loss of sensation, new numbness, tingling or weakness or other new or concerning changes. Prescriptions: New doxycycline hyclate 100 mg tablet 100 mg PO BID Qty: 20 0RF No Action losartan-hydrochlorothiazide 100-12.5 mg tablet 1 tab PO DAILY Qty: 90 2RF ibuprofen 200 mg Tablet 1,000 mg PO Q6H PRN (Reason: Pain (Scale Score 1-3)) Referrals: Darien Schmitt MD [Primary Care Provider] - Stand Alone Forms: Patient Portal/API, Work Release Note
[2023-05-02] MEDS: DOXYCYCLINE HYCLATE 100 MG TABLET PO (02:03)
[2023-05-02 02:15] VITALS: BP 124/69; PULSE 64; RESP 18; TEMP 36.5; O2SAT 98
== END 2023-05-02 02:15 | disposition home or self-care (01) ==
PROVIDERS: Emergency Provider Emergency Medicine; PCP Family Medicine
DX: L03.116 Cellulitis of left lower limb (principal)
CPT/HCPCS: 73610; 73630; 99283

== ENCOUNTER 2023-07-29 10:54 | Emergency (ER) | payer OTHER, MEDICAID, SELFPAY ==
[2023-07-29 11:07] VITALS: BP 159/88; PULSE 88; RESP 16; TEMP 36.8; O2SAT 99; BMI 35.7
--- NOTE | 2023-07-29 11:45 | ED.SKABFB ---
HPI - Skin/Abscess/Foreign Bdy <Becky Poole PA-C - Last Filed: 07/29/23 19:12> General Chief complaint: Skin/Abscess/Foreign Body Stated complaint: swelling on pinky Time Seen by Provider: 07/29/23 11:18 Source: patient Mode of arrival: Ambulatory Limitations: no limitations History of Present Illness HPI narrative: 28-year-old male presents with concern for swelling redness and pain in his right pinky on the inside of the pinky for about 2 days. 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 Came in today because it has become increasingly red over the past few days after he woke up Wednesday morning with pain at the joint. He has had skin infections in the past on this hand and wonders if it could be an infection again. He says it his other joints in his fingers feel fine and he has not noticed any similar symptoms there. Denies any recent fevers chills or any other symptoms of concern Related Data Home Medications Medication Instructions Recorded Confirmed ibuprofen 200 mg tablet 1,000 mg PO Q6H PRN Pain (Scale 09/24/20 03/31/22 Score 1-3) Previous Rx's Medication Instructions Recorded losartan 100 1 tab PO DAILY #90 tabs 10/26/22 mg-hydrochlorothiazide 12.5 mg tablet doxycycline hyclate 100 mg tablet 100 mg PO BID #20 tabs 05/02/23 amoxicillin 875 mg-potassium 1 tab PO Q12H cellulitis 7 days 07/29/23 clavulanate 125 mg tablet #14 tabs Allergies Allergy/AdvReac Type Severity Reaction Status Date / Time No Known Drug Allergies Allergy Verified 01/16/23 14:44 Review of Systems <Becky Poole PA-C - Last Filed: 07/29/23 19:12> Review of Systems Narrative: See HPI Patient History <Becky Poole PA-C - Last Filed: 07/29/23 19:12> Medical History Gout Ankle swelling Chronic ankle pain Bilateral Achilles tendonosis Lung mass Hyperglycemia Left ankle pain Achilles tendinitis of right lower extremity Decreased visual acuity Hearing loss (1997) Eczema (1997) Fractures (2009) Asthma (2004) Ankle pain Left wrist sprain Achilles tendinitis, left leg Surgical History Anesthesia History of orthopedic surgery History of tonsillectomy Family History Father Age: 54 Hypertension Grandfather Cancer Hypertension High cholesterol Grandmother Age: 78 Heart disease Hypertension High cholesterol Diabetes mellitus Sister Age: 35 Mental health problem Grandfather No problems noted. Grandmother No problems noted. Mother No problems noted. Sister No problems noted. Social History household members: spouse Smoking Status: Current every day smoker Smoking Status: Current every day smoker tobacco type: smokeless tobacco alcohol intake frequency: holidays/special occasions only Substance Use Type: marijuana Exam <Becky Poole PA-C - Last Filed: 07/29/23 19:12> Narrative Exam Narrative: GENERAL: [28] year old patient appears stated age. morbidly obese patient, in mild distress. HEAD: Atraumatic. Normocephalic. EYES: Pupils equal round and reactive. Extraocular motions intact. No scleral icterus. No injection or drainage. ENT: Nose without bleeding, purulent drainage. Airway patent. NECK: Trachea midline. Non tender CARDIOVASCULAR: Regular rate and rhythm without murmurs, gallops, or rubs. RESPIRATORY: Clear to auscultation. Breath sounds equal bilaterally. No wheezes, rales, or rhonchi. GASTROINTESTINAL: Abdomen soft, non-tender, nondistended. EXTREMITIES: On the lateral aspect of the PIP joint of the 5th digit of the right hand there is erythema small possibly nodular firm soft tissue region that is tender to touch. The finger itself is slightly swollen as compared to the opposite hand. Range of motion is reduced 2nd to swelling. Sensation is intact. There is no streaking up the finger into the hand. No fluctuance or drainage or open wound noted. No edema or joint tenderness. BACK: Nontender without deformity or crepitance. No flank tenderness. NEURO: AOx3. SKIN: No rash or erythema of visible areas Initial Vital Signs Initial Vital Signs: Vital Signs Temperature 98.2 F 07/29/23 11:07 Pulse Rate 88 07/29/23 11:07 Respiratory Rate 16 07/29/23 11:07 Blood Pressure 159/88 H 07/29/23 11:07 Pulse Oximetry 99 07/29/23 11:07 Oxygen Delivery Method Room Air 07/29/23 11:07 <Tiffany Arroyo DO - Last Filed: 07/30/23 08:44> Initial Vital Signs Initial Vital Signs: Vital Signs Temperature 98.2 F 07/29/23 11:07 Pulse Rate 88 07/29/23 11:07 Respiratory Rate 16 07/29/23 11:07 Blood Pressure 159/88 H 07/29/23 11:07 Pulse Oximetry 99 07/29/23 11:07 Oxygen Delivery Method Room Air 07/29/23 11:07 Course <Becky Poole PA-C - Last Filed: 07/29/23 19:12> Orders Ordered: ED Orders 07/29/23 11:44 XR finger RT min 2V Stat Vital Signs Vital signs: Vital Signs - 8 hr 07/29/23 12:56 Pulse Rate 74 Respiratory Rate 14 Blood Pressure 145/96 H Pulse Oximetry 99 Oxygen Delivery Method Room Air <Tiffany Arroyo DO - Last Filed: 07/30/23 08:44> Orders Ordered: ED Orders 07/29/23 11:44 XR finger RT min 2V Stat Vital Signs Vital signs: Vital Signs - 8 hr 07/29/23 12:56 Pulse Rate 74 Respiratory Rate 14 Blood Pressure 145/96 H Pulse Oximetry 99 Oxygen Delivery Method Room Air MDM - Skin/Abscess/Foreign Bdy <Becky Poole PA-C - Last Filed: 07/29/23 19:12> Differential Diagnosis Differential diagnosis: Likely abscess of skin or subcutaneous tissue, cellulitis and other (Gout) Medical Records Attestation: I reviewed the patient's medical records. Imaging Data Extremity x-ray #1: My Impression: Agree with Radiology interpretation Radiologist's Impression: [address] [address] XRay Report Signed Patient: Siva Roberts MR#: [id number] : 1995 Acct:[id number] Age/Sex: 28 / M Date of Service: 07/29/23 Loc: ED Accession Number: [id number] Procedure: XR finger RT min 2V Ordering Provider: Becky Poole P.A-C PROCEDURE: XR FINGER RT MIN 2V INDICATIONS: swelling/bony abnormality PIP lateral aspect--no known inj TECHNIQUE: AP hand, 2 views of the 5th finger(s) acquired. COMPARISON: None. FINDINGS: Bones: No fractures or dislocations. No suspicious bony lesions. Soft tissues: No suspicious soft tissue calcifications. IMPRESSION: No acute bony abnormality. Dictated by: John Restrepo M.D. on 07/29/2023 at 12:09 Approved by: John Restrepo M.D. on 07/29/2023 at 12:10 [facility] Narrative Medical decision making narrative: This is a well-appearing morbidly obese 28-year-old male presenting with concern for localized swelling and redness and pain of his pinky finger at the PIP joint. History of cellulitis. No known injury. X-rays obtained for further evaluation due to possible bony abnormality of the joint. X-rays are unremarkable today. Discussed options with the patient prescription for Augmentin for cellulitis. Encouraged to follow up with his primary care provider, consider seeing specialty care if he has persistent problems with this joint. He has no red flag symptoms suggestive of severe infection, I am less suspicious for arthritis or gout given his age and location and appearance of the lesion. Return precautions provided, follow-up plan discussed, all questions answered. Discharge Plan Departure Patient Disposition: Home Clinical Impression: Pain involving joint of finger Qualifiers: Laterality: right Qualified Code(s): M25.541 - Pain in joints of right hand Cellulitis Qualifiers: Site of cellulitis: extremity Site of cellulitis of extremity: upper extremity Laterality: right Qualified Code(s): L03.113 - Cellulitis of right upper limb Activity Restrictions/Additional Instructions: *You have been diagnosed with [cellulitis, joint pain] *What to do: *Please continue to take your regular medications as directed. [1 ] New medication prescriptions sent to your pharmacy: [Augmentin] [ ] New medication written as a paper prescription [ ] No new medications given *Please follow up with your primary care provider in 2-3 days, call for an appointment. Let them know you were seen in the Emergency Department and that we ask that you be seen in follow up. We will electronically transmit a record of today's note if your PCP is in our system. You came to the ER today with slight swelling and some pain on the inside of your pinky at your 1st joint that has been present for a few days. I think it is certainly possible that this represents an infection given the redness and slight heat and tenderness in the area, we did do an x-ray that shows no bony abnormalities. You may want to consider mildred taping this finger to your ring finger for a little while as there is always a chance that you did jam it or strain it slightly which might be part of the cause of your discomfort. Sometimes you will have symptoms such as this from an inflammatory process, and taking medications like Advil and Tylenol should be helpful with inflammation and with pain, this combined with the antibiotic I am hopeful will resolve your symptoms but you should minimize use of this finger for the next 5-7 days if possible to allow it to heal and let the inflammation go down. If you have persistent symptoms or problems with this region I recommend he follow up closely with your primary care provider and they can discuss this with you and potentially have you see a specialist if needed. I hope you feel better soon. *If you do not have a primary care provider please contact the [facility] Resource line at [phone]. They will ask some questions about your medical history and help get you set up with a doctor in the community. *Return to Emergency Department if you should have any new, worsening or concerning symptoms, such as [fever greater than 101 F, shaking chills, worsening pain, persistent vomiting or other bothersome symptoms] Prescriptions: New amoxicillin-pot clavulanate 875-125 mg tablet 1 tab PO Q12H 7 Days Qty: 14 0RF No Action losartan-hydrochlorothiazide 100-12.5 mg tablet 1 tab PO DAILY Qty: 90 2RF doxycycline hyclate 100 mg tablet 100 mg PO BID Qty: 20 0RF ibuprofen 200 mg Tablet 1,000 mg PO Q6H PRN (Reason: Pain (Scale Score 1-3)) Referrals: Darien Schmitt MD [Primary Care Provider] - Stand Alone Forms: Patient Portal/API ED Sign-out <Tiffany Arroyo DO - Last Filed: 07/30/23 08:44> Cosign ED Attending Davidature Attestation: I was available for consultation.
--- NOTE | 2023-07-29 11:50 | PC.NURSE ---
patient works on cars for a living. he woke up on wednesday with swelling and limited ROM on his right pinky. the knuckle is red and swollen on the medial aspect. He denies trauma to the pinky. he states the he tried RICE, apap, ibuprophen and nothing has helped. HE states that he has a hx of skin infection on that pinky and since then, the knuckle has not been the same.
[2023-07-29 12:56] VITALS: BP 145/96; PULSE 74; RESP 14; O2SAT 99
== END 2023-07-29 12:57 | disposition home or self-care (01) ==
PROVIDERS: Emergency Provider Student in an Organized Health Care Education/Training Program; PCP Family Medicine
DX: L03.113 Cellulitis of right upper limb (principal); M25.541 Pain in joints of right hand
CPT/HCPCS: 73140; 99281; 99283

== ENCOUNTER 2023-11-26 18:25 | Emergency (ER) | payer OTHER, SELFPAY ==
[2023-11-26 18:28] VITALS: BP 169/87; PULSE 72; RESP 18; TEMP 36.8; O2SAT 99; BMI 39.1
--- NOTE | 2023-11-26 18:57 | PC.NURSE ---
patient complains of bilateral foot pain. he has been having this pain for some time now, has been seen by podiatry and gout specialist. He was told that he did not have gout. he was told that he had achilles tendonitis. His achilles in his right ankle is tight and tender at the base of his tendon on palpation. he states that he also has pain the side of his right foot. He also is having pain on the side of his left foot. He can stand on both feet but it is painful. He has had to take off work for a few weeks now. he's tried voltaren at home with no help. Rice method helped a little. Apap and Ibu helped a little. He also tried cyclobenzoprine from a friend that helped him sleep.
[2023-11-26 19:10] VITALS: BP 140/87; PULSE 82; O2SAT 99
[2023-11-26 19:30] VITALS: BP 145/76; PULSE 59; O2SAT 99
[2023-11-26 20:00] VITALS: BP 138/87; PULSE 84; O2SAT 96
[2023-11-26 20:30] VITALS: BP 142/93; PULSE 82; O2SAT 100
--- NOTE | 2023-11-26 20:36 | ED_ITS ---
HPI - Extremity Problem General Chief complaint: Extremity Problem,Nontraumatic Stated complaint: back and bilateral foot pain Time Seen by Provider: 11/26/23 20:36 Source: patient Mode of arrival: Wheelchair History of Present Illness HPI Narrative: 28-year-old male complains of recent weeks bilateral foot pain. No change in footwear, activities, though he does frequent standing and lifting. He has tried ocoi-ebc-[id number] orthotics in the past. No specific diagnosis recalled. He has not sought consultation with podiatry or orthopedic plastic surgery assistant. He has pain to the right posterior heel, no injury recalled, worse with ankle movements and walking. No pain to the proximal or mid calf, no right calf swelling. He also has pain to the left lateral foot, no inversion or eversion injury, no skin changes or sores or redness or ulcerations or punctures. No pain in the redness to left or right foot or ankle or heel. Related Data Home Medications Medication Instructions Recorded Confirmed ibuprofen 200 mg tablet 1,000 mg PO Q6H PRN Pain (Scale 09/24/20 03/31/22 Score 1-3) Previous Rx's Medication Instructions Recorded doxycycline hyclate 100 mg tablet 100 mg PO BID #20 tabs 05/02/23 losartan 100 1 tab PO DAILY #90 tabs 09/20/23 mg-hydrochlorothiazide 12.5 mg tablet Allergies Allergy/AdvReac Type Severity Reaction Status Date / Time No Known Drug Allergies Allergy Verified 11/26/23 18:35 Review of Systems Review of Systems Narrative: see HPI Patient History Medical History Gout Ankle swelling Chronic ankle pain Bilateral Achilles tendonosis Lung mass Hyperglycemia Left ankle pain Achilles tendinitis of right lower extremity Decreased visual acuity Hearing loss (1997) Eczema (1997) Fractures (2009) Asthma (2004) Ankle pain Left wrist sprain Achilles tendinitis, left leg Surgical History Anesthesia History of orthopedic surgery History of tonsillectomy Family History Father Age: 54 Hypertension Grandfather Cancer Hypertension High cholesterol Grandmother Age: 78 Heart disease Hypertension High cholesterol Diabetes mellitus Sister Age: 35 Mental health problem Grandfather No problems noted. Grandmother No problems noted. Mother No problems noted. Sister No problems noted. Social History household members: spouse Smoking Status: Current every day smoker Smoking Status: Current every day smoker tobacco type: smokeless tobacco alcohol intake frequency: holidays/special occasions only Substance Use Type: marijuana Exam Narrative Exam Narrative: GENERAL: Well-developed patient, in mild distress. HEAD: Atraumatic. Normocephalic. EYES: Pupils equal round and reactive. Extraocular motions intact. No scleral icterus. No injection or drainage. ENT: Nose without bleeding, purulent drainage. Throat without erythema, tonsillar hypertrophy or exudate. Airway patent. NECK: Trachea midline. Non tender CARDIOVASCULAR: Regular rate and rhythm without murmurs, gallops, or rubs. RESPIRATORY: Clear to auscultation. Breath sounds equal bilaterally. No wheezes, rales, or rhonchi. GASTROINTESTINAL: Abdomen soft, non-tender, nondistended. EXTREMITIES: Right foot without gross deformity, no erythema or swelling or tenderness to anterior or mid foot. Some tenderness to the right Achilles insertion, without fluctuance or obvious disruption. Briceño test negative. Left foot without gross deformity, some mild tenderness along the left lateral foot, without redness of the skin or callus or lesions, no specific tenderness at base of 5th metatarsal. No ankle tenderness either side. No plantar skin lesions or into digital ulceration or tinea changes or discharge. BACK: Nontender without deformity or crepitance. No flank tenderness. NEURO: AOx3. Grossly nonfocal motor exam SKIN: No rash or erythema of visible areas Initial Vital Signs Initial Vital Signs: Vital Signs Temperature 98.2 F 11/26/23 18:28 Pulse Rate 72 11/26/23 18:28 Respiratory Rate 18 11/26/23 18:28 Blood Pressure 169/87 H 11/26/23 18:28 Pulse Oximetry 99 11/26/23 18:28 Oxygen Delivery Method Room Air 11/26/23 18:28 Course Orders Ordered: ED Orders 11/26/23 20:41 XR foot LT min 3V Stat XR foot RT min 3V Stat Vital Signs Vital signs: Vital Signs - 8 hr 11/26/23 19:10 11/26/23 19:10 11/26/23 19:30 Pulse Rate 82 Blood Pressure 140/87 145/76 H Pulse Oximetry 99 Oxygen Delivery Method Room Air 11/26/23 19:30 11/26/23 20:00 11/26/23 20:00 Pulse Rate 59 L 84 Blood Pressure 138/87 Pulse Oximetry 99 96 Oxygen Delivery Method Room Air 11/26/23 20:30 11/26/23 20:30 11/26/23 21:00 Pulse Rate 82 86 Blood Pressure 142/93 H Pulse Oximetry 100 100 Oxygen Delivery Method Room Air 11/26/23 21:00 Pulse Rate Blood Pressure 152/98 H Pulse Oximetry Oxygen Delivery Method MDM - Extremity (Nontraumatic) Lab Data Labs: Point of Care Testing Glucose POC 165 Imaging Data Extremity x-ray #1: Radiologist's Impression: [address] [address] XRay Report Signed Patient: Siva Roberts MR#: [id number] : 1995 Acct:[id number] Age/Sex: 28 / M Date of Service: 11/26/23 Loc: ED Accession Number: [id number] Procedure: XR foot LT min 3V Ordering Provider: Joni Briceño MD PROCEDURE: XR FOOT LT MIN 3V INDICATIONS: left lateral foot pain TECHNIQUE: 3 views of the foot were acquired. COMPARISON: [facility], CR, XR FOOT LT MIN 3V, 05/01/2023, 23:05. [facility], CR, XR FOOT LT MIN 3V, 03/28/2021, 16:01. FINDINGS: Bones: No acute displaced fracture. No dislocation. Prominent dorsal midfoot osteophytes. Soft tissues: No suspicious calcifications IMPRESSION: No acute displaced fracture or dislocation. Mild dorsal midfoot osteophytes. If there is high concern for further derangement, consider MRI evaluation. Dictated by: Jorge Andino M.D. on 11/26/2023 at 21:23 Approved by: Jorge Andino M.D. on 11/26/2023 at 21:24 Extremity x-ray #2: Radiologist's Impression: [address] [address] XRay Report Signed Patient: Siva Roberts MR#: [id number] : 1995 Acct:[id number] Age/Sex: 28 / M Date of Service: 11/26/23 Loc: ED Accession Number: [id number] Procedure: XR foot RT min 3V Ordering Provider: Joni Briceño MD PROCEDURE: XR FOOT RT MIN 3V INDICATIONS: R calcaneal achilles insertion pain TECHNIQUE: 3 views of the foot were acquired. COMPARISON: [facility], CR, XR FOOT LT MIN 3V, 05/01/2023, 23:05. [facility], CR, XR FOOT LT MIN 3V, 03/28/2021, 16:01. [facility], CR, XR FOOT RT MIN 3V, 03/28/2021, 16:01. FINDINGS: Bones: Kjbj-iw-woaoeerl 1st MTP degenerative changes. No acute displaced fr acture or dislocation mild midfoot degenerative changes. There may be a tiny Achilles insertional enthesophyte. Soft tissues: No suspicious calcifications IMPRESSION: Possible tiny calcaneal enthesophyte. Mild midfoot and spzs-by-iwtuzvwu 1st MTP degenerative changes. If there is high concern for further derangement, consider MRI evaluation. Dictated by: Jorge Andino M.D. on 11/26/2023 at 21:26 Approved by: Jorge Andino M.D. on 11/26/2023 at 21:27 [facility] Narrative Medical decision making narrative: Bilateral foot pain, on exam has tenderness right Achilles insertion, doubt disruption, could be Laz disease apophysitis. No pain on compression of calcaneus on the right side, seems less likely stress fracture to the calcaneus itself. Left foot with lateral tenderness without skin lesions or gross deformity. X-rays both feet ordered Possible inflammatory change right Achilles insertion, otherwise negative acute changes. Arthritic changes both feet mentioned. See radiology reports. Patient advised to take Tylenol and or Motrin as needed for pain control. Consider Podiatry/orthopedic surgery referral, could consider elevation and icing of the Achilles insertion, elevation and icing of the symptomatic left lateral foot area, consider custom orthotic placement, new/adequate supportive footwear, bring work footwear and regular home foot wear to podiatry/orthopedic evaluation appointment for assessment. Return precautions discussed, stable, home with family Discharge Plan Departure Patient Disposition: Home Clinical Impression: Pain of right heel, Left foot pain Activity Restrictions/Additional Instructions: Ongoing right heel pain, no new injury or trauma or new activities, wearing the same work boots, frequent standing activities. Also left lateral foot pain, also no specific injury recalled. Tenderness right right heel at the insertion point of the Achilles tendon into the calcaneus heel bone. Left lateral foot tenderness. No skin changes or obvious skin infections on either foot. X-rays negative for acute fractures. Possible apophysitis irritation of the insertion of the Achilles tendon into the calcaneus heel bone. Possible strain or overuse or foot strain left side. It is possible also to have early stress bone fractures that you can not see on plain films, sometimes further testing such as MRI or bone scanning is needed to make these diagnoses. Follow up with local orthopedic surgery, contact information provided. Take tkgo-kxk-cmgykcs pain medications as needed for discomfort. Consider local ice massage and elevation. Return earlier to this/nearest emergency department for any change worsening symptoms or any concerns prior Prescriptions: No Action losartan-hydrochlorothiazide 100-12.5 mg tablet 1 tab PO DAILY Qty: 90 0RF doxycycline hyclate 100 mg tablet 100 mg PO BID Qty: 20 0RF ibuprofen 200 mg Tablet 1,000 mg PO Q6H PRN (Reason: Pain (Scale Score 1-3)) Referrals: Darien Schmitt MD [Primary Care Provider] - Kaden Dick MD [Physician] - Stand Alone Forms: Patient Portal/API
--- NOTE | 2023-11-26 20:41 | DI.RAD.S_ITS ---
PROCEDURE: XR FOOT RT MIN 3V INDICATIONS: R calcaneal achilles insertion pain TECHNIQUE: 3 views of the foot were acquired. COMPARISON: [facility], CR, XR FOOT LT MIN 3V, 05/01/2023, 23:05. [facility], CR, XR FOOT LT MIN 3V, 03/28/2021, 16:01. [facility], CR, XR FOOT RT MIN 3V, 03/28/2021, 16:01. FINDINGS: Bones: Shef-mu-rsvwnqcf 1st MTP degenerative changes. No acute displaced fracture or dislocation mild midfoot degenerative changes. There may be a tiny Achilles insertional enthesophyte. Soft tissues: No suspicious calcifications IMPRESSION: Possible tiny calcaneal enthesophyte. Mild midfoot and mubc-ey-cfnqflfb 1st MTP degenerative changes. If there is high concern for further derangement, consider MRI evaluation. Dictated by: Jorge Andino M.D. on 11/26/2023 at 21:26 Approved by: Jorge Andino M.D. on 11/26/2023 at 21:27
--- NOTE | 2023-11-26 20:41 | DI.RAD.S_ITS ---
PROCEDURE: XR FOOT LT MIN 3V INDICATIONS: left lateral foot pain TECHNIQUE: 3 views of the foot were acquired. COMPARISON: [facility], CR, XR FOOT LT MIN 3V, 05/01/2023, 23:05. [facility], CR, XR FOOT LT MIN 3V, 03/28/2021, 16:01. FINDINGS: Bones: No acute displaced fracture. No dislocation. Prominent dorsal midfoot osteophytes. Soft tissues: No suspicious calcifications IMPRESSION: No acute displaced fracture or dislocation. Mild dorsal midfoot osteophytes. If there is high concern for further derangement, consider MRI evaluation. Dictated by: Jorge Andino M.D. on 11/26/2023 at 21:23 Approved by: Jorge Andino M.D. on 11/26/2023 at 21:24
[2023-11-26 21:00] VITALS: BP 152/98; PULSE 86; O2SAT 100
== END 2023-11-26 21:36 | disposition home or self-care (01) ==
PROVIDERS: Emergency Provider Emergency Medicine; PCP Family Medicine
DX: M79.672 Pain in left foot (principal); M79.671 Pain in right foot
CPT/HCPCS: 73630; 82962; 99282; 99283

== ENCOUNTER 2024-01-04 15:03 | Emergency (ER) | payer BC, SELFPAY ==
[2024-01-04 15:09] VITALS: BP 138/89; PULSE 83; RESP 18; TEMP 36.6; O2SAT 100; BMI 39.1
--- NOTE | 2024-01-04 15:23 | DI.RAD.S_ITS ---
PROCEDURE: XR ANKLE RT MIN 3V INDICATIONS: injury/ bruising TECHNIQUE: 3 views of the ankle were acquired. COMPARISON: [facility], CR, XR ANKLE LT MIN 3V, 05/01/2023, 23:05. FINDINGS: Bones: No fractures or dislocations. Ankle mortise is normally aligned. No suspicious bony lesions. Soft tissues: Small tibiotalar joint effusion. Achilles tendon appears normal. IMPRESSION: No acute right ankle fracture or dislocation. Ankle mortise is congruent. Small joint effusion, no loose bodies. Dictated by: Favio Martinez M.D. on 01/04/2024 at 16:10 Approved by: Favio Martinez M.D. on 01/04/2024 at 16:11
--- NOTE | 2024-01-04 15:23 | DI.RAD.S_ITS ---
PROCEDURE: XR FOOT RT MIN 3V INDICATIONS: injury/ bruising TECHNIQUE: 3 views of the foot were acquired. COMPARISON: [facility], CR, XR FOOT LT MIN 3V, 11/26/2023, 20:41. FINDINGS: Bones: No fractures or dislocations. Mild hallux valgus is seen. Mild 1st MTP joint osteoarthritic changes are seen. No suspicious bony lesions. Soft tissues: Mild soft tissue swelling over 1st MTP joint is seen. No tibiotalar joint effusion. Achilles tendon appears normal. IMPRESSION: No acute right foot fracture or dislocation. Mild 1st MTP joint osteoarthritis with overlying soft tissue swelling. Dictated by: Favio Martinez M.D. on 01/04/2024 at 16:12 Approved by: Favio Martinez M.D. on 01/04/2024 at 16:13
[2024-01-04 16:42] VITALS: PULSE 77
[2024-01-04 19:14] VITALS: BP 136/77; PULSE 68; RESP 16; TEMP 36.6; O2SAT 98
--- NOTE | 2024-01-04 19:15 | ED_ITS ---
HPI - Extremity Injury (Lower) <Leonidas De Luna PA-C - Last Filed: 01/04/24 19:20> General Chief Complaint: Extremity Injury, Lower Stated Complaint: sent by PCP, rt knee/foot swollen and discomfort Time Seen by Provider: 01/04/24 16:51 History of Present Illness HPI Narrative: 28-year-old male presents to the ED with 3 weeks of right-sided knee and foot pain. Patient had a fall, following which he was evaluated, had negative x- rays, discharged home with the diagnosis of knee sprain. Patient states that since then, his knee has improved, however his foot has been painful. No numbness, tingling, weakness. Patient has noted discoloration on the dorsal, lateral aspect of his right foot. Patient has been ambulating with crutches. Related Data Home Medications Medication Instructions Recorded Confirmed ibuprofen 200 mg tablet 1,000 mg PO Q6H PRN Pain (Scale 09/24/20 12/22/23 Score 1-3) Previous Rx's Medication Instructions Recorded losartan 100 1 tab PO DAILY #90 tabs 09/20/23 mg-hydrochlorothiazide 12.5 mg tablet naproxen 500 mg tablet 500 mg PO BID PRN pain #40 tabs 12/22/23 Allergies Allergy/AdvReac Type Severity Reaction Status Date / Time No Known Drug Allergies Allergy Verified 12/22/23 13:11 Review of Systems <Leonidas De Luna PA-C - Last Filed: 01/04/24 19:20> Constitutional Constitutional: Denies chills, Denies fatigue, Denies fever(s), Denies frequent falls, Denies lethargy and Denies weakness Eyes Eyes: Denies change in vision, Denies eye discharge, Denies irritation and Denies loss of vision ENT Ears, Nose, Mouth, and Throat: Denies change in voice, Denies dizziness, Denies neck pain, Denies sore throat and Denies throat swelling Cardiovascular Cardiovascular: Denies chest pain, Denies irregular heart rhythm, Denies lightheadedness, Denies palpitations, Denies dyspnea, Denies dyspnea on exertion and Denies orthopnea Respiratory Respiratory: Denies cough, Denies dyspnea, Denies dyspnea on exertion and Denies wheezing Gastrointestinal Gastrointestinal: Denies abdominal pain, Denies change in bowel habits, Denies diarrhea, Denies nausea and Denies vomiting Musculoskeletal Musculoskeletal: Denies neck pain and Denies numbness Comments: Right foot pain, discoloration Integumentary/Breasts Skin/Breast: Denies pruritus, Denies erythema, Denies rash and Denies wounds Neurologic Neurologic: Denies behavioral changes, Denies confusion, Denies dizziness, Denies frequent falls, Denies loss of vision, Denies numbness and Denies weakness Psychiatric Psychiatric: Denies anxiety, Denies behavioral changes, Denies confusion, Denies depression, Denies homicidal ideation and Denies suicidal ideation Endocrine Endocrine: Denies fatigue, Denies flushing and Denies palpitations Hematologic/Lymphatic Hematologic/Lymphatic: Denies easy bruising Allergic/Immunologic Allergic/Immunologic: Denies urticaria, Denies throat swelling and Denies wheezing Patient History <Leonidas De Luna PA-C - Last Filed: 01/04/24 19:20> Medical History Gout Ankle swelling Chronic ankle pain Bilateral Achilles tendonosis Lung mass Hyperglycemia Left ankle pain Achilles tendinitis of right lower extremity Decreased visual acuity Hearing loss (1997) Eczema (1997) Fractures (2009) Asthma (2004) Ankle pain Left wrist sprain Achilles tendinitis, left leg Surgical History Anesthesia History of orthopedic surgery History of tonsillectomy Family History Father Age: 54 Hypertension Grandfather Cancer Hypertension High cholesterol Grandmother Age: 78 Heart disease Hypertension High cholesterol Diabetes mellitus Sister Age: 35 Mental health problem Grandfather No problems noted. Grandmother No problems noted. Mother No problems noted. Sister No problems noted. Social History household members: spouse Smoking Status: Current every day smoker Smoking Status: Current every day smoker tobacco type: smokeless tobacco alcohol intake frequency: holidays/special occasions only Substance Use Type: marijuana Exam <Leonidas De Luna PA-C - Last Filed: 01/04/24 19:20> Narrative Exam Narrative: Const General:?cooperative, healthy appearing and comfortable HENUT Head:?normal to inspection Ears:?hearing grossly normal bilaterally Nose:?external nose normal Face and sinus:?normal facial exam and sinuses nontender Mouth:?oral mucosae normal Throat:?posterior oropharynx normal Eyes General:?appearance normal, both eyes and all related structures Neck Neck:?normal visual inspection and no lymphadenopathy noted Resp Effort & Inspection:?normal respiratory effort Auscultation:?clear to auscultation bilaterally Cardio Rate:?regular rate Rhythm:?regular rhythm Musculoskeletal There is some discoloration consistent with bruising of the lateral, dorsal aspect of the right foot. No tenderness to palpation. No deformities. Pulses are intact. Skin is warm and well perfused. Cap refill less than 2 seconds. Patient is neurovascularly intact. Neuro General:?patient alert, patient awake and patient oriented x3 Initial Vital Signs Initial Vital Signs: Vital Signs Temperature 97.9 F 01/04/24 15:09 Pulse Rate 83 01/04/24 15:09 Respiratory Rate 18 01/04/24 15:09 Blood Pressure 138/89 01/04/24 15:09 Pulse Oximetry 100 01/04/24 15:09 Oxygen Delivery Method Room Air 01/04/24 15:09 <DO Leslie Mars Last Filed: 01/04/24 19:23> Initial Vital Signs Initial Vital Signs: Vital Signs Temperature 97.9 F 01/04/24 15:09 Pulse Rate 83 01/04/24 15:09 Respiratory Rate 18 01/04/24 15:09 Blood Pressure 138/89 01/04/24 15:09 Pulse Oximetry 100 01/04/24 15:09 Oxygen Delivery Method Room Air 01/04/24 15:09 Course <Leonidas De Luna PA-C - Last Filed: 01/04/24 19:20> Orders Ordered: ED Orders 01/04/24 15:23 XR ankle RT min 3V Stat XR foot RT min 3V Stat Vital Signs Vital signs: Vital Signs - 8 hr 01/04/24 15:09 01/04/24 16:42 01/04/24 19:14 Temperature 97.9 F 98 F Pulse Rate 83 68 Pulse Rate [Right Dorsalis Pedis] 77 Respiratory Rate 18 16 Blood Pressure 138/89 136/77 Pulse Oximetry 100 98 Oxygen Delivery Method Room Air Room Air <DO Leslie Mars Filed: 01/04/24 19:23> Orders Ordered: ED Orders 01/04/24 15:23 XR ankle RT min 3V Stat XR foot RT min 3V Stat Vital Signs Vital signs: Vital Signs - 8 hr 01/04/24 15:09 01/04/24 16:42 01/04/24 19:14 Temperature 97.9 F 98 F Pulse Rate 83 68 Pulse Rate [Right Dorsalis Pedis] 77 Respiratory Rate 18 16 Blood Pressure 138/89 136/77 Pulse Oximetry 100 98 Oxygen Delivery Method Room Air Room Air MDM - Extremity Injury (Lower) <Leonidas De Luna PA-C - Last Filed: 01/04/24 19:20> MDM Narrative Medical decision making narrative: 28-year-old male presents to the ED with 3 weeks of right-sided knee and foot pain. Foot and ankle x-rays were obtained to rule out fracture/dislocation. X- rays without acute findings. The discoloration on the dorsal aspect of the foot is consistent with dependent bruising from a musculoskeletal sprain/strain from the injury. Pulses are intact, skin is warm and well perfused. Cap refill less than 2 seconds. Patient is neurovascularly intact. Recommend follow-up with PCP, physical therapy. Recommend ibuprofen, Tylenol for pain. ED return precautions discussed with patient. Patient verbalized understanding. Medical records reviewed: Yes Discharge Plan Departure Patient Disposition: Home Clinical Impression: Foot pain Qualifiers: Laterality: right Qualified Code(s): M79.671 - Pain in right foot Instructions: DI for Foot Pain Activity Restrictions/Additional Instructions: You were evaluated in the ED today for right-sided knee, foot pain. Your foot and ankle x-rays were normal. It appears that you have experienced a musculoskeletal sprain/strain from the fall. There is some bruising noted on the top of the foot which can commonly happened with sprains or strains. This will resolve spontaneously over the next few days. You may continue taking Tylenol, ibuprofen for pain. Please follow-up with your PCP as soon as possible. You may also benefit from physical therapy. Return to the ED if you have worsening symptoms, numbness, tingling, weakness. Prescriptions: No Action losartan-hydrochlorothiazide 100-12.5 mg tablet 1 tab PO DAILY Qty: 90 0RF naproxen 500 mg tablet 500 mg PO BID PRN (Reason: pain) Qty: 40 0RF ibuprofen 200 mg Tablet 1,000 mg PO Q6H PRN (Reason: Pain (Scale Score 1-3)) Referrals: Darien Schmitt MD [Primary Care Provider] - Stand Alone Forms: Patient Portal/API/Survey ED Sign-out <Mayra Chang DO - Last Filed: 01/04/24 19:23> Cosign ED Attending Cosignature Attestation: I was immediately available in the department for consultation.
== END 2024-01-04 19:14 | disposition home or self-care (01) ==
PROVIDERS: Emergency Provider Student in an Organized Health Care Education/Training Program; PCP Family Medicine
DX: M79.671 Pain in right foot (principal); M25.561 Pain in right knee; Z91.81 History of falling
CPT/HCPCS: 73610; 73630; 99281; 99283

== ENCOUNTER → 2024-02-16 15:01 | Outpatient (CLI) | payer BC, SELFPAY ==
--- NOTE | 2024-02-16 15:02 | DI.MRI.S_ITS ---
PROCEDURE: MR KNEE RT WO CON INDICATIONS: knee twist/pop 1 mo ago, can't bear weight TECHNIQUE: Noncontrast sagittal PD fast spin echo and T2 fast spin echo with fat saturation, sagittal 3-D FLASH with fat saturation; coronal T1 spin echo and PD fast spin echo with fat saturation, and axial PD fast spin echo with fat saturation through the knee. COMPARISON: [facility], CR, XR KNEE 4+ VIEWS RIGHT, 02/01/2024, 10:26. FINDINGS: Image quality: Excellent. Menisci: The medial and lateral menisci demonstrate normal morphology and internal signal. The meniscal root ligaments appear intact. Cruciate ligaments: The anterior and posterior cruciate ligaments appear intact. Medial structures: The medial collateral ligament appears intact. Visualized portions of the pes anserinus tendons appear normal. No abnormal bursal fluid. Lateral structures: The lateral collateral ligament, long and short heads of the biceps femoris tendon appear intact. The popliteus tendon appears normal. Iliotibial band appears normal. Anterior structures: The quadriceps and patellar tendons appear intact. Lateral patellar subluxation. Shallow trochlear groove is present. Mild edema within the superolateral aspect of the infrapatellar fat pad. Bones and cartilage: No bone marrow contusions or fractures. Moderate articular cartilage loss overlies the lateral patellar facet inferiorly. Mild articular cartilage loss diffusely overlies the weight-bearing aspects of the medial femoral condyle and medial tibial plateau. Joint space: There is a small knee joint effusion and a trace Mares's cyst. Normal appearing synovial plicae are incidentally noted. IMPRESSION: 1. No internal derangement. 2. Findings consistent with lateral patellofemoral friction syndrome in the appropriate clinical setting. 3. Medial and patellofemoral compartment articular cartilage loss. 4. Knee joint effusion and trace Mares's cyst. Dictated by: Jarad Lee M.D. on 02/17/2024 at 9:28 Approved by: Jarad Lee M.D. on 02/17/2024 at 9:37
== END ==
PROVIDERS: PCP Family Medicine; Referring Provider Orthopaedic Surgery Foot and Ankle Surgery; Visit Provider Orthopaedic Surgery Foot and Ankle Surgery
DX: M23.91 Unspecified internal derangement of right knee (principal); M25.461 Effusion, right knee; S83.8X9A Sprain of other specified parts of unspecified knee, initial encounter; M25.569 Pain in unspecified knee; G89.29 Other chronic pain
CPT/HCPCS: 73721

== ENCOUNTER → 2024-07-27 07:09 | Outpatient (CLI) | payer BC, SELFPAY ==
[2024-07-27 07:49] LABS: Add Manual Diff / Slide Review NO; Basophils Absolute Auto 0 /uL (0-100); Basophils Percent Auto 0.4 % (0-2); Eosinophils Absolute Auto 300 /uL (0-450); Eosinophils Percent Auto 3.3 % (2-4); Hematocrit 46.2 % (41-53); Hemoglobin 15.8 g/dL (13.5-17.5); Lymphocytes Absolute Auto 2500 /uL (1100-4500); Lymphocytes Percent Auto 26.1 % (25-40); Mean Corpuscular HGB Conc 34.1 % (30-36); Mean Corpuscular Hemoglobin 27.3 PG (26-34); Mean Corpuscular Volume 80.1 fL (80-100); Monocytes Absolute Auto 800 /uL (0-900); Monocytes Percent Auto 8.3 % (3-14); Neutrophils Absolute Auto 5900 /uL (1500-7000); Neutrophils Percent Auto 61.9 % (50-75); Platelet Count 320 X10^3/uL (150-400); Red Blood Cell Count 5.77 X10^6/uL (4.5-5.9); Red Cell Distribution Width 16.2 % (11.6-14.8); White Blood Cell Count 9.5 X10^3/uL (4.5-11.0)
[2024-07-27 07:56] LABS: Hemoglobin A1C% w Est Avg Glu 5.4 % (4.0-6.0)
[2024-07-27 08:03] LABS: Alanine Aminotransferase 59 IU/L (<50); Albumin 4.7 g/dL (3.5-5.0); Albumin Globulin Ratio 1.4 (1.0-2.8); Alkaline Phosphatase 52 U/L (38-126); Aspartate Aminotransferase 45 IU/L (17-59); BUN Creatinine Ratio 17.4 (6-22); Bilirubin Total 1.4 mg/dL (0.2-1.3); Blood Urea Nitrogen 15 mg/dL (9-20); Calcium 9.6 mg/dL (8.4-10.2); Carbon Dioxide 25 mmol/L (22-32); Chloride 99 mmol/L (98-107); Cholesterol 254 mg/dL (140-199); Estimated Glomerular Filt Rate > 60 mL/min (>60); Globulin 3.4 g/dL (1.7-4.1); Glucose 110 mg/dL (70-99); HDL Cholesterol 38 mg/dL (40-60); HEMOLYSIS < 15 (0-50); Potassium 4.3 mmol/L (3.4-5.1); Sodium 135 mmol/L (137-145); Total Protein 8.1 g/dL (6.3-8.2)
[2024-07-27 08:11] LABS: Creatinine Urine Random 74.15 mg/dL
[2024-07-27 08:16] LABS: Microalbumin Urine Random 2.2 mg/dL (0-1.6)
[2024-07-27 08:24] LABS: Triglycerides 879 mg/dL (35-150)
[2024-07-27 08:34] LABS: TSH w/ Reflex to FT4 2.02 uIU/mL (0.47-4.68)
== END ==
PROVIDERS: PCP Family Medicine; Referring Provider Family Medicine; Visit Provider Family Medicine
DX: I10 Essential (primary) hypertension (principal); R73.9 Hyperglycemia, unspecified; M10.9 Gout, unspecified
CPT/HCPCS: 36415; 80053; 80061; 82043; 82570; 83036; 84443; 85025

== ENCOUNTER → 2024-09-05 16:34 | Outpatient (CLI) | payer BC, SELFPAY ==
--- NOTE | 2024-09-05 16:37 | DI.RAD.S_ITS ---
PROCEDURE: XR SHOULDER LT MIN 2V INDICATIONS: L shoulder pain TECHNIQUE: 3 views of the shoulder were acquired. COMPARISON: None. FINDINGS: Bones: No fractures or dislocations. No suspicious bony lesions. Visualized ribs appear intact. Soft tissues: No suspicious soft tissue calcifications. IMPRESSION: No acute bony abnormality. Dictated by: John Restrepo M.D. on 09/05/2024 at 17:33 Approved by: John Restrepo M.D. on 09/05/2024 at 17:34
--- NOTE | 2024-09-05 16:37 | DI.RAD.S_ITS ---
PROCEDURE: STERNOCLAVICULAR JOINT BI INDICATIONS: L SC joint pain TECHNIQUE: 3 views of the sternoclavicular joints acquired. COMPARISON: None. FINDINGS: Bones: No fractures or dislocations. No suspicious bony destruction or sclerosis. Prior right clavicle ORIF. Soft tissues: Visualized lung apices are clear. No suspicious soft tissue calcifications or densities. IMPRESSION: No acute abnormality. Dictated by: John Restrepo M.D. on 09/05/2024 at 17:54 Approved by: oJhn Restrepo M.D. on 09/05/2024 at 17:54
== END ==
LOC: RAD 16:36
PROVIDERS: PCP Family Medicine; Referring Provider Chiropractor; Visit Provider Chiropractor
DX: M25.512 Pain in left shoulder (principal); M25.812 Other specified joint disorders, left shoulder
CPT/HCPCS: 71130; 73030

== ENCOUNTER 2024-10-07 02:00 | Emergency (ER) | payer BC, SELFPAY ==
[2024-10-07 02:09] VITALS: BP 175/111; PULSE 63; RESP 16; TEMP 36.8; O2SAT 96; BMI 38.2
--- NOTE | 2024-10-07 02:16 | ED_ITS ---
HPI - Extremity Injury (Upper) General Chief Complaint: Extremity Problem,Nontraumatic Stated Complaint: Swollen pinkie rt hand Time Seen by Provider: 10/07/24 02:03 Source: patient Mode of arrival: Ambulatory History of Present Illness HPI narrative: 29-year-old gentleman with no significant medical history other than hypertension presents with right 5th digit pain and swelling for the past 2-3 days. He denies any trauma to the area and has applied heat and ice and taken OTC Tylenol and ibuprofen without significant relief of his symptoms. He does not recall any specific injury that may have caused this but does report annually he gets cellulitis of the hand finger. Patient denies any fever, chills, foreign body sensation, bleeding, or discharge. Other than what is stated 14 point review system is negative. Related Data Previous Rx's ?Medication ?Instructions ?Recorded losartan 100 1 tab PO DAILY #90 tabs 06/0 2/25 mg-hydrochlorothiazide 25 mg tablet cephalexin 500 mg capsule 500 mg PO Q6H 7 days #28 cap s 10/07/24 Allergies Allergy/AdvReac Type Severity Reaction Status Date / Time No Known Drug Allergies Allergy Verified 10/07/24 02:09 Review of Systems Review of Systems ROS Unobtainable: All systems reviewed & are unremarkable except as noted in HPI and below Patient History Medical History Gout Ankle swelling Chronic ankle pain Bilateral Achilles tendonosis Lung mass Hyperglycemia Left ankle pain Achilles tendinitis of right lower extremity Decreased visual acuity Hearing loss (1997) Eczema (1997) Fractures (2009) Asthma (2004) Ankle pain Left wrist sprain Achilles tendinitis, left leg Surgical History Anesthesia History of orthopedic surgery History of tonsillectomy Family History Father Age: 55 Hypertension Grandfather Cancer Hypertension High cholesterol Grandmother Age: 79 Heart disease Hypertension High cholesterol Diabetes mellitus Sister Age: 36 Mental health problem Grandfather No problems noted. Grandmother No problems noted. Mother No problems noted. Sister No problems noted. Social History household members: spouse tobacco type: smokeless tobacco alcohol intake frequency: holidays/special occasions only Exam Narrative Exam Narrative: GENERAL: [85] year old patient appears stated age. Well-developed patient, in mild distress. HEAD: Atraumatic. Normocephalic. EYES: Pupils equal round and reactive. Extraocular motions intact. No scleral icterus. No injection or drainage. EXTREMITIES: Right 5th digit PIP joint tender to palpate with mild swelling and warmth to the area with decreased range of motion in flexion and extension. Motor sensory intact +2 radial pulse cap refills less than 2 seconds BACK: Nontender without deformity or crepitance. No flank tenderness. NEURO: AOx3. SKIN: No rash or erythema of visible areas Initial Vital Signs Initial Vital Signs: Vital Signs Temperature 98.3 F 10/07/24 02:09 Pulse Rate 63 10/07/24 02:09 Respiratory Rate 16 10/07/24 02:09 Blood Pressure 175/111 H 10/07/24 02:09 Pulse Oximetry 96 10/07/24 02:09 Oxygen Delivery Method Room Air 10/07/24 02:09 Course Vital Signs Vital signs: Vital Signs - 8 hr 10/07/24 02:09 Temperature 98.3 F Pulse Rate 63 Respiratory Rate 16 Blood Pressure 175/111 H Pulse Oximetry 96 Oxygen Delivery Method Room Air MDM - Extremity Injury (Upper) Imaging Data Extremity x-ray #1: Radiologist's Impression: No acute traumatic injury identified. Multiple views of the right hand demonstrate a remote fracture of the ulnar styloid process. No additional significant osseous articular or soft tissue abnormality. No fracture seen. MDM Narrative Medical decision making narrative: No acute traumatic injury is identified. Multiple views of the right hand demonstrate a remote fracture of the ulnar styloid process. No additional significant osseous articular or soft tissue abnormality. No fracture seen. Patient given Tylenol ibuprofen cephalexin here. DC home on cephalexin. Differential diagnosis cellulitis, fracture, dislocation, sprain. Discharge Plan Departure Patient Disposition: Home Clinical Impression: Cellulitis of finger Qualifiers: Laterality: right Qualified Code(s): L03.011 - Cellulitis of right finger Instructions: DI for Cellulitis -- Adult Activity Restrictions/Additional Instructions: Return with new or worsening symptoms. Take your medicines as directed. Follow up PCP 1-2 weeks if no improvement in symptoms. Prescriptions: New cephalexin 500 mg capsule 500 mg PO Q6H 7 Days Qty: 28 0RF No Action losartan-hydrochlorothiazide 100-25 mg tablet 1 tab PO DAILY Qty: 90 3RF Referrals: Darien Schmitt MD [Primary Care Provider, Family Practice] Stand Alone Forms: Patient Portal/API
--- NOTE | 2024-10-07 02:16 | DI.RAD.S_ITS ---
PROCEDURE: XR HAND RT MIN 3V INDICATIONS: R hand pain TECHNIQUE: 3 views of the hand(s) acquired. COMPARISON: [facility], CR, XR HAND RT MIN 3V, 01/16/2023, 15:07. FINDINGS: Bones: No acute fractures or dislocations. There is a remote, unfused fracture fragment involving the ulnar styloid. Carpal bones are normally aligned. No suspicious bony lesions. Soft tissues: Generalized soft tissue swelling is seen. IMPRESSION: Soft tissue swelling is seen, without an acute bony abnormality seen by plain film. Remote, unfused, stable fracture fragment along the distal aspect the ulnar styloid. If there is point tenderness (or other clinical suspicion for a fracture not seen on these images) then a dedicated CT or a short-term followup plain film series could be considered for further evaluation, as clinically appropriate. Note: No significant discrepancy from the preliminary report. Dictated by: Bo Mora M.D. on 10/07/2024 at 8:14 Approved by: Bo Mora M.D. on 10/07/2024 at 8:15
--- NOTE | 2024-10-07 02:19 | PC.NURSE ---
Imaging at bedside
[2024-10-07] MEDS: IBUPROFEN 400 MG TABLET 800 MG PO (02:23)
[2024-10-07] MEDS: ACETAMINOPHEN 325 MG TABLET 650 MG PO (02:23)
[2024-10-07 03:09] VITALS: BP 168/96; PULSE 88; RESP 16; O2SAT 100
== END 2024-10-07 03:10 | disposition home or self-care (01) ==
PROVIDERS: Emergency Provider Family Medicine; PCP Family Medicine
DX: L03.011 Cellulitis of right finger (principal)
CPT/HCPCS: 73130; 99283

== ENCOUNTER 2024-10-08 23:48 | Emergency (ER) | payer BC, SELFPAY ==
[2024-10-09 00:45] VITALS: BP 130/84; PULSE 77; RESP 15; TEMP 36.9; O2SAT 95; BMI 39.1
--- NOTE | 2024-10-09 06:19 | ED.SKABFB ---
HPI - Skin/Abscess/Foreign Bdy General Chief complaint: Skin/Abscess/Foreign Body Stated complaint: Reoccurring Rt hand pain Time Seen by Provider: 10/09/24 03:08 Source: patient Mode of arrival: Ambulatory Limitations: no limitations History of Present Illness HPI narrative: 29-year-old male right-handed has had prior hand infections in the past treated with antibiotics for cellulitis, now with swelling to the dorsum of the right hand for 2 days, had as mosquito bite in that area, no other injuries recalled. Specifically he denies human fight bite, contact to anyone's mouth. He is currently not taking any antibiotics. Related Data Home Medications ?Medication ?Instructions ?Recorded ?Confirmed epinephrine 0.3 mg/0.3 mL 0.3 ml IM .once PRN anaphylaxis 10/09/24 10/09/24 injection, auto-injector Previous Rx's ?Medication ?Instructions ?Recorded losartan 100 1 tab PO DAILY #90 tabs 08/07/24 mg-hydrochlorothiazide 25 mg tablet cephalexin 500 mg capsule 500 mg PO Q6H 7 days #28 caps 10/07/24 cephalexin 500 mg capsule 500 mg PO QID 7 days #28 caps 10/09/24 sulfamethoxazole 800 1 tab PO BID #14 tabs 10/09/24 mg-trimethoprim 160 mg tablet (Bactrim DS) Allergies Allergy/AdvReac Type Severity Reaction Status Date / Time No Known Drug Allergies Allergy Verified 10/09/24 00:42 Patient History Medical History Gout Ankle swelling Chronic ankle pain Bilateral Achilles tendonosis Lung mass Hyperglycemia Left ankle pain Achilles tendinitis of right lower extremity Decreased visual acuity Hearing loss (1997) Eczema (1997) Fractures (2009) Asthma (2004) Ankle pain Left wrist sprain Achilles tendinitis, left leg Surgical History Anesthesia History of orthopedic surgery History of tonsillectomy Family History Father Age: 55 Hypertension Grandfather Cancer Hypertension High cholesterol Grandmother Age: 79 Heart disease Hypertension High cholesterol Diabetes mellitus Sister Age: 36 Mental health problem Grandfather No problems noted. Grandmother No problems noted. Mother No problems noted. Sister No problems noted. Social History household members: spouse tobacco type: smokeless tobacco alcohol intake frequency: holidays/special occasions only Alcohol type: beer Exam Narrative Exam Narrative: GENERAL: Well-developed patient, in mild distress. HEAD: Atraumatic. Normocephalic. EYES: Pupils equal round and reactive. Extraocular motions intact. No scleral icterus. No injection or drainage. ENT: Nose without bleeding, purulent drainage. Throat without erythema, tonsillar hypertrophy or exudate. Airway patent. NECK: Trachea midline. Non tender CARDIOVASCULAR: Regular rate and rhythm without murmurs, gallops, or rubs. RESPIRATORY: Clear to auscultation. Breath sounds equal bilaterally. No wheezes, rales, or rhonchi. GASTROINTESTINAL: Abdomen soft, non-tender, nondistended. EXTREMITIES: Some swelling to the right dorsal hand, tattoos that do not appear new, can almost nearly cleanse she has fist closed. BACK: Nontender without deformity or crepitance. No flank tenderness. NEURO: AOx3. Motor functions grossly nonfocal. SKIN: No rash or erythema of visible areas Initial Vital Signs Initial Vital Signs: Vital Signs Temperature 98.5 F 10/09/24 00:45 Pulse Rate 77 10/09/24 00:45 Respiratory Rate 15 10/09/24 00:45 Blood Pressure 130/84 10/09/24 00:45 Pulse Oximetry 95 10/09/24 00:45 Oxygen Delivery Method Room Air 10/09/24 00:45 Course Orders Ordered: Discontinued Medications Ceftriaxone Sodium (Ceftriaxone 2,000 Mg Vial) 1,000 mg IM NOW ONE Stop: 10/09/24 06:24 Last Admin: 10/09/24 06:34 Dose: Not Given Documented By: VIOLET Ceftriaxone Sodium 1,000 mg/ (Sodium Chloride) 100 mls @ 200 mls/hr IV NOW ONE Stop: 10/09/24 06:28 Last Infusion: 10/09/24 07:19 Dose: Infused Documented By: Admin: 10/09/24 06:45 Dose: 200 mls/hr Documented By: VIOLET Trimethoprim/Sulfamethoxazole (Trimeth/Sulfa 160/800 (Ds) Tablet) 1 tab PO NOW ONE Stop: 10/09/24 06:24 Last Admin: 10/09/24 06:46 Dose: 1 tab Documented By: LS Vital Signs Vital signs: Vital Signs - 8 hr 10/09/24 00:45 Temperature 98.5 F Pulse Rate 77 Respiratory Rate 15 Blood Pressure 130/84 Pulse Oximetry 95 Oxygen Delivery Method Room Air MDM - Skin/Abscess/Foreign Bdy Lab Data Attestation: I reviewed the patient's lab results. Lab results narrative: White blood cell count 77595, hemoglobin 15.7, platelets adequate. Glucose 106. Renal function normal, serum CO2 and electrolytes normal. C-reactive protein mild elevation 2.8 noted. Procalcitonin not elevated. 10/09/24 06:32 10/09/24 06:32 Labs: Lab Results 10/09/24 Range/Units 06:32 WBC 14.9 H (4.5-11.0) X10^3/uL RBC 5.80 (4.5-5.9) X10^6/uL Hgb 15.7 (13.5-17.5) g/dL Hct 46.6 (41-53) % MCV 80.3 (80-100) fL MCH 27.1 (26-34) PG MCHC 33.7 (30-36) % RDW 15.5 H (11.6-14.8) % Plt Count 363 (150-400) X10^3/uL Neut % (Auto) 71.0 (50-75) % Lymph % (Auto) 17.2 L (25-40) % Antelope % (Auto) 8.6 (3-14) % Eos % (Auto) 2.7 (2-4) % Baso % (Auto) 0.5 (0-2) % Neut # (Auto) 16571 H (0062-9966) /uL Lymph # (Auto) 2600 (4763-3226) /uL Antelope # (Auto) 1300 H (0-900) /uL Eos # (Auto) 400 (0-450) /uL Baso # (Auto) 100 (0-100) /uL ESR 6 (0-15) MM/HR Sodium 139 (137-145) mmol/L Potassium 3.9 (3.4-5.1) mmol/L Chloride 102 (98-107) mmol/L Carbon Dioxide 24 (22-32) mmol/L BUN 15 (9-20) mg/dL Creatinine 0.95 (0.66-1.25) mg/dL Estimated GFR > 60 (>60) mL/min BUN/Creatinine Ratio 15.8 (6-22) Glucose 106 H (70-99) mg/dL Calcium 9.4 (8.4-10.2) mg/dL C-Reactive Protein 2.8 H (<1.0) mg/dL Procalcitonin 0.068 (<0.5) ng/mL MDM Narrative Medical decision making narrative: 29-year-old male with right hand swelling after a mosquito bite, no other injuries, denies human fight bite mechanism of injury, no laceration. Prior hand cellulitis noted. Hand/fingers tattoos noted but not new appearing, none recently added. X-ray hand, labs pending. IV ceftriaxone, oral Bactrim. Likely hand cellulitis, doubt drainable fluid, can almost nearly close his fist. Lab data: White blood cell count 45303, hemoglobin 15.7, platelets adequate. Glucose 106. Renal function normal, serum CO2 and electrolytes normal. C-reactive protein mild elevation 2.8 noted. Procalcitonin not elevated. X-ray right hand showed no acute injuries, no bony/osteomyelitis or foreign bodies seen. See tele radiology report Prescription sent to his pharmacy for cephalexin and Bactrim oral antibiotics. Wound check with PCP advised in 2 days. Return precautions discussed. Discharge Plan Departure Patient Disposition: Home Clinical Impression: Cellulitis of right hand Instructions: DI for Cellulitis -- Adult Activity Restrictions/Additional Instructions: History of prior hand cellulitis, mosquito bite suspected. Tattoos present but none recent. No human fight bite contact with anyone reported. No fever on triage. Some dorsal right hand swelling. X-ray and labs unremarkable. IV ceftriaxone and oral Bactrim antibiotics initiated. Prescription for cephalexin and oral Bactrim antibiotics for discharge. Recheck hand with your regular doctor in the next couple of days. Return to this/nearest emergency department for any change worsening symptoms or any concerns prior. Prescriptions: New cephalexin 500 mg capsule 500 mg PO QID 7 Days Qty: 28 0RF sulfamethoxazole-trimethoprim [Bactrim DS] 800-160 mg tablet 1 tab PO BID Qty: 14 0RF No Action losartan-hydrochlorothiazide 100-25 mg tablet 1 tab PO DAILY Qty: 90 3RF cephalexin 500 mg capsule 500 mg PO Q6H 7 Days Qty: 28 0RF epinephrine 0.3 mg/0.3 mL auto-injector 0.3 ml IM .once PRN (Reason: anaphylaxis) Referrals: Darien Schmitt MD [Primary Care Provider, Family Practice] Stand Alone Forms: Patient Portal/API
--- NOTE | 2024-10-09 06:21 | DI.RAD.S_ITS ---
PROCEDURE: XR HAND RT MIN 3V INDICATIONS: Right hand swelling TECHNIQUE: 3 views of the hand(s) acquired. COMPARISON: [facility], , XR HAND RT MIN 3V, 10/07/2024, 2:13. FINDINGS: Bones: No fractures or dislocations. Carpal bones are normally aligned. No suspicious bony lesions. Soft tissues: No suspicious soft tissue calcifications. IMPRESSION: No acute right hand fracture or dislocation. No discrepancies from preliminary reading. Dictated by: Favio Martinez M.D. on 10/09/2024 at 8:05 Approved by: Favio Martinez M.D. on 10/09/2024 at 8:06
[2024-10-09 06:41] LABS: Add Manual Diff / Slide Review NO; Hematocrit 46.6 % (41-53); Hemoglobin 15.7 g/dL (13.5-17.5); Lymphocytes Absolute Auto 2600 /uL (1100-4500); Mean Corpuscular HGB Conc 33.7 % (30-36); Mean Corpuscular Hemoglobin 27.1 PG (26-34); Mean Corpuscular Volume 80.3 fL (80-100); Platelet Count 363 X10^3/uL (150-400)
[2024-10-09] MEDS: TRIMETH/SULFA 160/800 (DS) TABLET 1 TAB PO (06:46)
[2024-10-09 06:55] LABS: Blood Urea Nitrogen 15 mg/dL (9-20); Calcium 9.4 mg/dL (8.4-10.2); Carbon Dioxide 24 mmol/L (22-32); Chloride 102 mmol/L (98-107); Estimated Glomerular Filt Rate > 60 mL/min (>60); Glucose 106 mg/dL (70-99); HEMOLYSIS < 15 (0-50); Potassium 3.9 mmol/L (3.4-5.1); Sodium 139 mmol/L (137-145)
[2024-10-09 07:10] LABS: Procalcitonin 0.068 ng/mL (<0.5)
[2024-10-09 08:03] VITALS: PULSE 65; RESP 16; O2SAT 95
== END 2024-10-09 08:04 | disposition home or self-care (01) ==
PROVIDERS: Emergency Provider Emergency Medicine; PCP Family Medicine
DX: L03.113 Cellulitis of right upper limb (principal)
CPT/HCPCS: 36415; 73130; 80048; 84145; 85025; 85651; 86140; 96365; 99284; J0696

== ENCOUNTER 2024-12-07 15:57 | Emergency (ER) | payer SELFPAY ==
[2024-12-07 16:04] VITALS: BP 185/102; PULSE 65; RESP 16; TEMP 37.2; O2SAT 98; BMI 39.1
--- NOTE | 2024-12-07 16:36 | ED_ITS ---
HPI - Back Pain/Injury General Chief Complaint: Back Pain/Injury Stated Complaint: upper back problems Time Seen by Provider: 12/07/24 16:34 History of Present Illness HPI Narrative: This is a 29-year-old male presents emergency department due to left-sided back pain. 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 States it hurts when he bends down and also hurts when he takes deep breath. Denies any fevers, chest pain, left arm pain, or any direct trauma to the back. Related Data Home Medications ?Medication ?Instructions ?Recorded ?Confirmed epinephrine 0.3 mg/0.3 mL 0.3 ml IM .once PRN anaphyla xis 10/09/24 11/28/24 injection, auto-injector Previous Rx's ?Medication ?Instructions ?Recorded losartan 100 1 tab PO DAILY #90 tabs 06/0 2/25 mg-hydrochlorothiazide 25 mg tablet sulfamethoxazole 800 1 tab PO BID #14 tabs mg-trimethoprim 160 mg tablet (Bactrim DS) cyclobenzaprine 10 mg tablet 10 mg PO TID #20 tabs 05/02 Allergies Allergy/AdvReac Type Severity Reaction Status Date / Time No Known Drug Allergies Allergy Verified 11/28/24 15:48 Review of Systems Review of Systems Narrative: GENERAL: Denies chills, fatigue, malaise, fever, sweats. HEENT: Denies sinus pain, ear pain, sore throat, difficulty swallowing, dizziness. RESPIRATORY: Denies dyspnea, cough, wheezing, hemoptysis, sputum. CARDIOVASCULAR: Denies chest pain, palpitations, orthopnea, edema, GASTROINTESTINAL: Denies nausea, vomiting, abdominal pain, diarrhea, constipation, melena. : Denies dysuria, frequency, incontinence, hematuria, urinary retention. MUSCULOSKELETAL: Reports left-sided back pain denies weakness, joint pain, or bony pain SKIN: Denies rash, skin lesions, or other NEUROLOGIC: Denies weakness, headache, numbness, change in speech, confusion, seizures, incoordination. PSYCHIATRIC: No concerning psychosocial issues. 12 point review of systems is negative except for those stated above Patient History Medical History Gout Ankle swelling Chronic ankle pain Bilateral Achilles tendonosis Lung mass Hyperglycemia Left ankle pain Achilles tendinitis of right lower extremity Decreased visual acuity Hearing loss (1997) Eczema (1997) Fractures (2009) Asthma (2004) Ankle pain Left wrist sprain Achilles tendinitis, left leg Surgical History Anesthesia History of orthopedic surgery History of tonsillectomy Family History Father Age: 55 Hypertension Grandfather Cancer Hypertension High cholesterol Grandmother Age: 79 Heart disease Hypertension High cholesterol Diabetes mellitus Sister Age: 36 Mental health problem Grandfather No problems noted. Grandmother No problems noted. Mother No problems noted. Sister No problems noted. Social History household members: spouse tobacco type: smokeless tobacco alcohol intake frequency: holidays/special occasions only Alcohol type: beer Exam Narrative Exam Narrative: GENERAL: Well-developed patient, in mild distress. HEAD: Atraumatic. Normocephalic. EYES: Pupils equal round and reactive. Extraocular motions intact. No scleral icterus. No injection or drainage. ENT: Nose without bleeding, purulent drainage. Throat without erythema, t onsillar hypertrophy or exudate. Airway patent. NECK: Trachea midline. Non tender EXTREMITIES: No edema or joint tenderness. NEURO: AOx3. SKIN: No rash or erythema of visible areas Back: Mild tenderness to palpation to left-sided thoracic paraspinals. Pain worsens with movement Initial Vital Signs Initial Vital Signs: Vital Signs Temperature 99 F 12/07/24 16:04 Pulse Rate 65 12/07/24 16:04 Respiratory Rate 16 12/07/24 16:04 Blood Pressure 185/102 H 12/07/24 16:04 Pulse Oximetry 98 12/07/24 16:04 Oxygen Delivery Method Room Air 12/07/24 16:04 Course Orders Ordered: Discontinued Medications Ketorolac Tromethamine (Ketorolac 30 Mg/Ml Vial) 15 mg IM NOW ONE Stop: 12/07/24 18:19 Last Admin: 12/07/24 18:24 Dose: 15 mg Documented By: [facility] Vital Signs Vital signs: Vital Signs - 8 hr 12/07/24 16:04 Temperature 99 F Pulse Rate 65 Respiratory Rate 16 Blood Pressure 185/102 H Pulse Oximetry 98 Oxygen Delivery Method Room Air MDM - Back Pain/Injury Imaging Data Chest x-ray: Radiologist's Impression: [address] [address] XRay Report Signed Patient: Siva Roberts MR#: [id number] : 1995 Acct:[id number] Age/Sex: 29 / M Date of Service: 12/07/24 Loc: ED Accession Number: [id number] Procedure: XR chest 2V Ordering Provider: Niels Baez PA-C PROCEDURE: XR CHEST 2V INDICATIONS: Back pain and SOB TECHNIQUE: 2 views of the chest were acquired. COMPARISON: [facility], CR, XR CHEST 1V, 08/05/2022, 16:18. [facility], CR, XR CHEST 2V, 03/18/2022, 11:03. FINDINGS: Surgical changes and devices: Plate screw fixation of a remote right clavicle fracture.. Lungs and pleura: Lungs are clear. No pleural effusions or pneumothorax. Mediastinum: Mediastinal contours are normal. Heart size is normal. Bones and chest wall: No suspicious bony abnormalities. Soft tissues appear unremarkable. IMPRESSION: No acute cardiopulmonary abnormality is seen. Dictated by: Cameron Mcbride M.D. on 12/07/2024 at 17:44 Approved by: Cameron Mcbride M.D. on 12/07/2024 at 17:52 [facility] Narrative Medical decision making narrative: ED course: 29-year-old male presenting to the emergency department due suspected strain in back. Pain worsened with movement and somewhat tender to palpation. Chest x-ray was unremarkable. Suspect muscular in nature. Toradol and muscle relaxants and ibuprofen Tylenol recommended. CC: Back pain Complicating co-morbidities: History of asthma Data collected from: Previous notes Medical records reviewed: Patient was last seen in this emergency department 2 months ago due to cellulitis of the hand. History of asthma, gout. History of hypertension. Differential considered, but not limited to: Fracture, muscle strain, pneumothorax Exam documented above, pertinent findings include: Pain with movement and palpation Lab Test results independently reviewed as above. Pertinent findings: None obtained Imaging studies independently reviewed: Chest x-ray unremarkable Scores Used: None MIPS Elements: None Consultations: None Treatments: IM Toradol Re-evaluations: None Discussion: Discussed plan with the patient was comfortable with the plan Diagnosis: Back strain Disposition: see below, along with detailed discharge instructions that have been reviewed with patient as well as indications for ED re-evaluation and additional outpatient follow up Discharge Plan Departure Patient Disposition: Home Clinical Impression: Back strain Activity Restrictions/Additional Instructions: Thank you for coming to the [facility] Emergency Department today. The chest x-ray showed no evidence of any lung or bone abnormality. I suspect this is a strained muscle in her back. 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 The Toradol should help. You may use ibuprofen Tylenol starting tomorrow. Please return to the emergency department if you develop any significant worsening shortness of breath, chest pain, or any other concerning signs or symptoms. I hope you feel better soon. Please follow up with your primary care provider within a week if your symptoms continue. If you do not have a primary care provider please contact the [facility] Resource line at [phone]. They will ask some questions about your medical history and help you get set up with a provider in the community. Prescriptions: New cyclobenzaprine 10 mg tablet 10 mg PO TID Qty: 20 0RF No Action losartan-hydrochlorothiazide 100-25 mg tablet 1 tab PO DAILY Qty: 90 3RF epinephrine 0.3 mg/0.3 mL auto-injector 0.3 ml IM .once PRN (Reason: anaphylaxis) sulfamethoxazole-trimethoprim [Bactrim DS] 800-160 mg tablet 1 tab PO BID Qty: 14 0RF Referrals: Darien Schmitt MD [Primary Care Provider, Family Practice] Stand Alone Forms: Patient Portal/API, Work Release Note
--- NOTE | 2024-12-07 17:08 | DI.RAD.S_ITS ---
PROCEDURE: XR CHEST 2V INDICATIONS: Back pain and SOB TECHNIQUE: 2 views of the chest were acquired. COMPARISON: [facility], CR, XR CHEST 1V, 08/05/2022, 16:18. [facility], CR, XR CHEST 2V, 03/18/2022, 11:03. FINDINGS: Surgical changes and devices: Plate screw fixation of a remote right clavicle fracture.. Lungs and pleura: Lungs are clear. No pleural effusions or pneumothorax. Mediastinum: Mediastinal contours are normal. Heart size is normal. Bones and chest wall: No suspicious bony abnormalities. Soft tissues appear unremarkable. IMPRESSION: No acute cardiopulmonary abnormality is seen. Dictated by: Cameron Mcbride M.D. on 12/07/2024 at 17:44 Approved by: Cameron Mcbride M.D. on 12/07/2024 at 17:52
[2024-12-07] MEDS: KETOROLAC 30 MG/ML VIAL 15 MG IM (18:24)
[2024-12-07 18:31] VITALS: BP 168/74; PULSE 88; RESP 12; O2SAT 98
== END 2024-12-07 18:32 | disposition home or self-care (01) ==
PROVIDERS: Emergency Provider Physician Assistant Medical; PCP Family Medicine
DX: S29.012A Strain of muscle and tendon of back wall of thorax, initial encounter (principal); X50.9XXA Other and unspecified overexertion or strenuous movements or postures, initial encounter
CPT/HCPCS: 71046; 96372; 99283; J1885

== ENCOUNTER 2025-01-05 19:40 | Emergency (ER) | payer SELFPAY ==
[2025-01-05] VITALS (7 sets, daily range): BP systolic 138–156; BP diastolic 60–101; PULSE 60–88; RESP 20–24; TEMP 36.6; O2SAT 96–98; BMI 39.1
--- NOTE | 2025-01-05 20:30 | DI.RAD.S_ITS ---
PROCEDURE: XR FOOT LT MIN 3V INDICATIONS: left foot pain TECHNIQUE: 3 views of the foot were acquired. COMPARISON: [facility], CR, XR FOOT RT MIN 3V, 01/04/2024, 15:25. FINDINGS: Bones: No fractures or dislocations. No suspicious bony lesions. Moderate osteoarthritis, most pronounced at the 1st MTP. Soft tissues: No tibiotalar joint effusion. Achilles tendon appears normal. IMPRESSION: Osteoarthritis. Dictated by: Cameron Mcbride M.D. on 01/05/2025 at 20:57 Approved by: Cameron Mcbride M.D. on 01/05/2025 at 20:57
--- NOTE | 2025-01-05 20:31 | ED.WEAKNESS ---
HPI - Weakness General Chief complaint: Weakness Stated complaint: Back, L foot/Knee pain Time Seen by Provider: 01/05/25 19:46 Source: patient Mode of arrival: Wheelchair History of Present Illness HPI Narrative: 29-year-old gentleman with no significant past medical history presents with left big toe pain that started yesterday along left knee left back pain and right groin pain but his main complaint is the left big toe. He has been told in the past he has had severe arthritis for his age group. He denies any history of gout or pseudogout or any recent trauma or heavy lifting. He has taken diclofenac and Tylenol with no significant relief of his symptoms. Other than what is stated 14 point review of system is negative. Related Data Home Medications ?Medication ?Instructions ?Recorded ?Confirmed epinephrine 0.3 mg/0.3 mL 0.3 ml IM .once PRN anaphylaxis 10/09/24 11/28/24 injection, auto-injector Previous Rx's ?Medication ?Instructions ?Recorded losartan 100 1 tab PO DAILY #90 tabs 08/07/24 mg-hydrochlorothiazide 25 mg tablet sulfamethoxazole 800 1 tab PO BID #14 tabs 10/09/24 mg-trimethoprim 160 mg tablet (Bactrim DS) cyclobenzaprine 10 mg tablet 10 mg PO TID #20 tabs 12/07/24 colchicine 0.6 mg tablet (Colcrys) 0.6 mg PO BID #4 tabs 01/05/25 indomethacin 75 mg 75 mg PO BID #15 caps 01/05/25 capsule,extended release prednisone 20 mg tablet 20 mg PO BID #10 tabs 01/05/25 Allergies Allergy/AdvReac Type Severity Reaction Status Date / Time No Known Drug Allergies Allergy Verified 01/05/25 20:02 Review of Systems Review of Systems ROS Unobtainable: All systems reviewed & are unremarkable except as noted in HPI and below Patient History Medical History Gout Ankle swelling Chronic ankle pain Bilateral Achilles tendonosis Lung mass Hyperglycemia Left ankle pain Achilles tendinitis of right lower extremity Decreased visual acuity Hearing loss (1997) Eczema (1997) Fractures (2009) Asthma (2004) Ankle pain Left wrist sprain Achilles tendinitis, left leg Surgical History Anesthesia History of orthopedic surgery History of tonsillectomy Family History Father Age: 55 Hypertension Grandfather Cancer Hypertension High cholesterol Grandmother Age: 79 Heart disease Hypertension High cholesterol Diabetes mellitus Sister Age: 36 Mental health problem Grandfather No problems noted. Grandmother No problems noted. Mother No problems noted. Sister No problems noted. Social History household members: spouse tobacco type: smokeless tobacco alcohol intake frequency: holidays/special occasions only Alcohol type: beer Exam Narrative Exam Narrative: GENERAL: [29] year old patient appears stated age. Well-developed patient, in mild distress. HEAD: Atraumatic. Normocephalic. EYES: Pupils equal round and reactive. Extraocular motions intact. No scleral icterus. No injection or drainage. ENT: Nose without bleeding, purulent drainage. Throat without erythema, tonsillar hypertrophy or exudate. Airway patent. NECK: Trachea midline. Non tender CARDIOVASCULAR: Regular rate and rhythm without murmurs, gallops, or rubs. RESPIRATORY: Clear to auscultation. Breath sounds equal bilaterally. No wheezes, rales, or rhonchi. GASTROINTESTINAL: Abdomen soft, non-tender, nondistended. EXTREMITIES: No edema or joint tenderness. Left big toe mildly red warm tender to palpate with no soft tissue swelling streaking up the leg or foot motor sensory intact +2 DP +2 PT cap refill less than 2 seconds BACK: Nontender without deformity or crepitance. No flank tenderness. NEURO: AOx3. SKIN: No rash or erythema of visible areas Initial Vital Signs Initial Vital Signs: Vital Signs Temperature 97.9 F 01/05/25 20:01 Pulse Rate 67 01/05/25 20:01 Respiratory Rate 20 01/05/25 20:01 Blood Pressure 156/101 H 01/05/25 20:01 Pulse Oximetry 98 01/05/25 20:01 Oxygen Delivery Method Room Air 01/05/25 20:01 Course Orders Ordered: ED Orders 01/05/25 20:29 Uric Acid Stat 01/05/25 20:30 XR foot LT min 3V Stat Lactated Ringer's (Lactated Ringers) 500 mls @ 1,000 mls/hr IV BOLUS ONE Stop: 01/05/25 20:58 Discontinued Medications Ketorolac Tromethamine (Ketorolac 30 Mg/Ml Vial) 15 mg IV NOW ONE Stop: 01/05/25 20:30 Vital Signs Vital signs: Vital Signs - 8 hr 01/05/25 20:01 Temperature 97.9 F Pulse Rate 67 Respiratory Rate 20 Blood Pressure 156/101 H Pulse Oximetry 98 Oxygen Delivery Method Room Air MDM - Weakness Imaging Data Extremity x-ray #1: Radiologist Impression: [address] [address] [address] Scan Report Signed Patient: Alyx Tian MR#: [id number] : 01/21/1997 Acct:[id number] Age/Sex: 27 / F Date of Service: 01/05/25 Loc: ED Accession Number: [id number] Procedure: CT abdomen pelvis w con Ordering Provider: Darrion Garcia D.O. PROCEDURE: CT ABDOMEN PELVIS W CON INDICATIONS: abd pain TECHNIQUE: After the administration of intravenous contrast, axial sections acquired from the lung bases to the pubic symphysis. Coronal and sagittal reformats were performed. For radiation dose reduction, the following was used: automated exposure control, adjustment of mA and/or kV according to patient size. COMPARISON: None. FINDINGS: Image quality: Diagnostic. Lower Chest: No significant findings. ABDOMEN: Liver: No solid mass. Gallbladder: No radiopaque gallstones or wall thickening. Biliary ducts: No biliary dilation. Pancreas: Fat stranding along the body and head of the pancreas. No ductal dilation. Pancreas enhances uniformly. Spleen: Size is within normal limits. Adrenal Glands: No adrenal nodules. Kidneys and Ureters: No hydronephrosis. No solid mass. No complex renal cystic lesion which requires follow up. Stomach and Bowel: Normal colonic caliber, without significant wall thickening. Normal appendix. Peritoneum: Trace free fluid in the pelvis. No free intraperitoneal air. Ventral Wall: No significant ventral hernia. Abdominal Nodes: No retroperitoneal or mesenteric adenopathy by size criteria. Vessels: Aorta and inferior vena cava are normal in size. PELVIS: Pelvic Organs: Unremarkable. Bladder: No bladder wall thickening, accounting for underdistention. Pelvic Nodes: No enlarged lymph nodes. Miscellaneous: No inguinal hernias are seen. Bones: No aggressive osseous abnormality. IMPRESSION: Edema along the pancreas concerning for acute interstitial edematous pancreatitis. Dictated by: Cameron Mcbride M.D. on 01/05/2025 at 20:15 Approved by: Cameron Mcbride M.D. on 01/05/2025 at 20:[address] [facility] Narrative Medical decision making narrative: Vital signs, nurse triage note, medication list, previous ER visits, and all imaging studies reviewed. X-ray showed osteoarthritis. Uric acid 11.6 patient given Colchrys, Toradol, norco, and lactated ringer 1 L bolus. Patient will be discharged on Colchrys, [place] take-home pack, and prednisone. Differential diagnosis gout pseudogout arthritis cellulitis Discharge Plan Departure Patient Disposition: Home Clinical Impression: Gout Qualifiers: Gout site: toe Encounter type: initial encounter Chronicity: acute Laterality: left Osteoarthritis Qualifiers: Osteoarthritis location: other site Osteoarthritis type: primary Qualified Code(s): M19.09 - Primary osteoarthritis, other specified site Instructions: DI for Gout Activity Restrictions/Additional Instructions: Return with new or worsening symptoms. Take your medicines as directed. Follow up PCP 1 week if no improvement in symptoms. Prescriptions: New colchicine [Colcrys] 0.6 mg tablet 0.6 mg PO BID Qty: 4 0RF prednisone 20 mg tablet 20 mg PO BID Qty: 10 0RF indomethacin 75 mg capsule, extended release 75 mg PO BID Qty: 15 0RF No Action losartan-hydrochlorothiazide 100-25 mg tablet 1 tab PO DAILY Qty: 90 3RF epinephrine 0.3 mg/0.3 mL auto-injector 0.3 ml IM .once PRN (Reason: anaphylaxis) sulfamethoxazole-trimethoprim [Bactrim DS] 800-160 mg tablet 1 tab PO BID Qty: 14 0RF cyclobenzaprine 10 mg tablet 10 mg PO TID Qty: 20 0RF Referrals: Darien Schmitt MD [Primary Care Provider, Family Practice] Stand Alone Forms: Patient Portal/API
[2025-01-05] MEDS: KETOROLAC 30 MG/ML VIAL 15 MG IV (20:35)
[2025-01-05] MEDS: LACTATED RINGERS 500 ML 1000 ML IV (20:37)
[2025-01-05 20:49] LABS: Uric Acid 11.6 mg/dL (3.5-8.5)
[2025-01-05] MEDS: COLCHICINE 0.6 MG TABLET 1.2 MG PO (21:50)
== END 2025-01-05 22:04 | disposition home or self-care (01) ==
PROVIDERS: Emergency Provider Family Medicine; PCP Family Medicine
DX: M10.9 Gout, unspecified (principal); M19.072 Primary osteoarthritis, left ankle and foot
CPT/HCPCS: 36415; 73630; 84550; 96374; 99284; J1885

== ENCOUNTER 2025-02-04 10:37 | Inpatient (IN) | payer OTHER, SELFPAY ==
[2025-02-04 11:00] VITALS: BP 152/106; PULSE 81; RESP 16; TEMP 36.4; O2SAT 97; BMI 36.8
--- NOTE | 2025-02-04 11:02 | ED.UPPEXIN ---
HPI - Extremity Injury (Upper) General Chief Complaint: Extremity Injury, Upper Stated Complaint: RT hand not moving Time Seen by Provider: 02/04/25 10:45 History of Present Illness HPI narrative: 29-year-old gentleman presents with right hand and wrist pain and swelling started yesterday after popping his right middle finger. He is unable to move his fingers and wrist in all directions without pain. He did not take anything. Other than what is stated 14 pt review of system is negative. Related Data Home Medications ?Medication ?Instructions ?Recorded ?Confirmed epinephrine 0.3 mg/0.3 mL 0.3 ml IM .once PRN anaphylaxis 10/09/24 01/11/25 injection, auto-injector Previous Rx's ?Medication ?Instructions ?Recorded losartan 100 1 tab PO DAILY #90 tabs 08/07/24 mg-hydrochlorothiazide 25 mg tablet cyclobenzaprine 10 mg tablet 10 mg PO TID #20 tabs 12/07/24 indomethacin 75 mg 75 mg PO BID #15 caps 01/05/25 capsule,extended release Allergies Allergy/AdvReac Type Severity Reaction Status Date / Time No Known Drug Allergies Allergy Verified 01/11/25 16:21 Review of Systems Review of Systems ROS Unobtainable: All systems reviewed & are unremarkable except as noted in HPI and below Patient History Medical History Gout Ankle swelling Chronic ankle pain Bilateral Achilles tendonosis Lung mass Hyperglycemia Left ankle pain Achilles tendinitis of right lower extremity Decreased visual acuity Hearing loss (1997) Eczema (1997) Fractures (2009) Asthma (2004) Ankle pain Left wrist sprain Achilles tendinitis, left leg Surgical History Anesthesia History of orthopedic surgery History of tonsillectomy Family History Father Age: 55 Hypertension Grandfather Cancer Hypertension High cholesterol Grandmother Age: 79 Heart disease Hypertension High cholesterol Diabetes mellitus Sister Age: 36 Mental health problem Grandfather No problems noted. Grandmother No problems noted. Mother No problems noted. Sister No problems noted. Social History household members: spouse tobacco type: smokeless tobacco alcohol intake frequency: holidays/special occasions only Alcohol type: beer Exam Narrative Exam Narrative: GENERAL: [29] year old patient appears stated age. Well-developed patient, in mild distress. HEAD: Atraumatic. Normocephalic. EYES: Pupils equal round and reactive. Extraocular motions intact. No scleral icterus. No injection or drainage. NECK: Trachea midline. Non tender CARDIOVASCULAR: Regular rate and rhythm without murmurs, gallops, or rubs. RESPIRATORY: Clear to auscultation. Breath sounds equal bilaterally. No wheezes, rales, or rhonchi. GASTROINTESTINAL: Abdomen soft, non-tender, nondistended. EXTREMITIES: No edema or joint tenderness. BACK: Nontender without deformity or crepitance. No flank tenderness. NEURO: AOx3. SKIN: No rash or erythema of visible areas Initial Vital Signs Initial Vital Signs: Vital Signs Temperature 97.6 F 02/04/25 11:00 Pulse Rate 81 02/04/25 11:00 Respiratory Rate 16 02/04/25 11:00 Blood Pressure 152/106 H 02/04/25 11:00 Pulse Oximetry 97 02/04/25 11:00 Oxygen Delivery Method Room Air 02/04/25 11:00 Course Orders Ordered: ED Orders 02/04/25 11:04 XR hand RT min 3V Stat XR wrist RT min 3V Stat 02/04/25 11:10 CBC Auto Diff [Complete Blood Count AUTO DIFF] Stat CMP [Comprehensive Metabolic Panel] Stat CRP [C-Reactive Protein Quant] Stat Erythrocyte Sedimentation Rate Stat Lactate (Lactic Acid) Stat 02/04/25 11:27 Blood Culture Stat Discontinued Medications Hydrocodone Bitart/Acetaminophen (Hydrocodone/Acet 5/325 Tablet) 1 tab PO NOW ONE Stop: 02/04/25 11:04 Last Admin: 02/04/25 11:37 Dose: 1 tab Documented By: ALEXIS Lactated Ringer's (Lactated Ringers) 1,000 mls @ 1,000 mls/hr IV BOLUS ONE Stop: 02/04/25 12:01 Last Infusion: 02/04/25 13:49 Dose: Infused Documented By: Admin: 02/04/25 11:38 Dose: 1,000 mls/hr Documented By: ALEXIS Piperacillin Sod/Tazobactam (Sod 4.5 gm/ Sodium Chloride) 100 mls @ 200 mls/hr IV NOW ONE Stop: 02/04/25 11:04 Last Admin: 02/04/25 13:04 Dose: Not Given Documented By: ALEXIS Vancomycin HCl (Vancomycin) 1,000 mg in 200 mls @ 200 mls/hr IV NOW ONE Stop: 02/04/25 12:14 Last Infusion: 02/04/25 13:50 Dose: Infused Documented By: Admin: 02/04/25 12:40 Dose: 200 mls/hr Documented By: ALEXIS Piperacillin Sod/Tazobactam (Sod 3.375 gm/ Sodium Chloride) 100 mls @ 200 mls/hr IV NOW ONE Stop: 02/04/25 11:35 Last Admin: 02/04/25 11:52 Dose: Not Given Documented By: ALEXIS Piperacillin Sod/Tazobactam (Sod 3.375 gm/ Sodium Chloride) 100 mls @ 200 mls/hr IV NOW ONE Stop: 02/04/25 12:14 Last Infusion: 02/04/25 12:21 Dose: Infused Documented By: Admin: 02/04/25 11:51 Dose: 200 mls/hr Documented By: ALEXIS Ketorolac Tromethamine (Ketorolac 30 Mg/Ml Vial) 15 mg IV NOW ONE Stop: 02/04/25 11:04 Last Admin: 02/04/25 11:37 Dose: 15 mg Documented By: ALEXIS Vital Signs Vital signs: Vital Signs - 8 hr 02/04/25 11:00 02/04/25 13:49 Temperature 97.6 F Pulse Rate 81 68 Respiratory Rate 16 16 Blood Pressure 152/106 H 147/84 H Pulse Oximetry 97 99 Oxygen Delivery Method Room Air Room Air MDM - Extremity Injury (Upper) Lab Data 02/04/25 11:10 02/04/25 11:10 Labs: Lab Results 02/04/25 Range/Units 11:10 WBC 12.6 H (4.5-11.0) X10^3/uL RBC 6.37 H (4.5-5.9) X10^6/uL Hgb 16.4 (13.5-17.5) g/dL Hct 50.0 (41-53) % MCV 78.6 L (80-100) fL MCH 25.8 L (26-34) PG MCHC 32.8 (30-36) % RDW 16.4 H (11.6-14.8) % Plt Count 385 (150-400) X10^3/uL Neut % (Auto) 67.1 (50-75) % Lymph % (Auto) 20.9 L (25-40) % [place] % (Auto) 9.1 (3-14) % Eos % (Auto) 2.4 (2-4) % Baso % (Auto) 0.5 (0-2) % Neut # (Auto) 8500 H (9851-3871) /uL Lymph # (Auto) 2600 (4147-9214) /uL [place] # (Auto) 1200 H (0-900) /uL Eos # (Auto) 300 (0-450) /uL Baso # (Auto) 100 (0-100) /uL RBC Morphology See below Anisocytosis 1+ H Microcytosis 1+ H ESR 1 (0-15) MM/HR Sodium 140 (137-145) mmol/L Potassium 4.3 (3.4-5.1) mmol/L Chloride 104 (98-107) mmol/L Carbon Dioxide 24 (22-32) mmol/L BUN 10 (9-20) mg/dL Creatinine 0.91 (0.66-1.25) mg/dL Estimated GFR > 60 (>60) mL/min BUN/Creatinine Ratio 11.0 (6-22) Glucose 105 H (70-99) mg/dL Lactate 1.7 (0.7-2.1) mmol/L Calcium 9.5 (8.4-10.2) mg/dL Total Bilirubin 2.4 H (0.2-1.3) mg/dL AST 30 (17-59) IU/L ALT 32 (<50) IU/L Alkaline Phosphatase 63 (38-126) U/L C-Reactive Protein 4.4 H (<1.0) mg/dL Total Protein 8.9 H (6.3-8.2) g/dL Albumin 4.8 (3.5-5.0) g/dL Globulin 4.1 (1.7-4.1) g/dL Albumin/Globulin Ratio 1.2 (1.0-2.8) Imaging Data Extremity x-ray #1: Radiologist's Impression: [address] [address] XRay Report Signed Patient: Siva Roberts MR#: [id number] : 1995 Acct:[id number] Age/Sex: 29 / M Date of Service: 02/04/25 Loc: ED Accession Number: [id number] Procedure: XR wrist RT min 3V Ordering Provider: Darrion Garcia D.O. PROCEDURE: XR WRIST RT MIN 3V INDICATIONS: pain TECHNIQUE: 3 views of the wrist were acquired. COMPARISON: [facility], WRIST MINIMUM 3 VIEWS LEFT, 04/03/2017, 17:42. FINDINGS: Bones: No acute fractures or dislocations. No suspicious bony lesions. Chronic styloid process fracture. Soft tissues: No suspicious soft tissue calcifications. IMPRESSION: No acute bony abnormality. Dictated by: John Restrepo M.D. on 02/04/2025 at 11:36 Approved by: John Restrepo M.D. on 02/04/2025 at 11:37 Extremity x-ray #2: Radiologist's Impression: [address] [address] XRay Report Signed Patient: Siva Roberts MR#: [id number] : 1995 Acct:[id number] Age/Sex: 29 / M Date of Service: 02/04/25 Loc: ED Accession Number: [id number] Procedure: XR hand RT min 3V Ordering Provider: Darrion Garcia D.O. PROCEDURE: XR HAND RT MIN 3V INDICATIONS: right TECHNIQUE: 3 views of the hand(s) acquired. COMPARISON: [facility], XR HAND RT MIN 3V, 10/09/2024, 6:29. [facility], XR HAND RT MIN 3V, 10/07/2024, 2:13. FINDINGS: Bones: No fractures or dislocations. Carpal bones are normally aligned. No suspicious bony lesions. Soft tissues: No suspicious soft tissue calcifications. IMPRESSION: No acute bony abnormality. Dictated by: John Restrepo M.D. on 02/04/2025 at 11:33 Approved by: John Restrepo M.D. on 02/04/2025 at 11:33 MDM Narrative Medical decision making narrative: All lab work, vital signs, nurse triage note, medication list, previous ER visits, and all imaging studies reviewed. Patient given fluids Toradol [place], vanco and zosyn. WBC 12.6 hemoglobin 16.4 platelets 385 CRP 4.4 lactic acid 1.7 T bili 2.4. Patient given vancomycin and Zosyn Toradol fluids D[place]. Case discussed with Dr. Conte who will consult ortho. Discharge Plan Departure Patient Disposition: Admitted as Observation Clinical Impression: Cellulitis of dorsum of hand Admit Date/Time: 02/04/25 14:05 Admit Provider: Calvin Larsen
--- NOTE | 2025-02-04 11:04 | DI.RAD.S_ITS ---
PROCEDURE: XR HAND RT MIN 3V INDICATIONS: right TECHNIQUE: 3 views of the hand(s) acquired. COMPARISON: [facility], CR, XR HAND RT MIN 3V, 10/09/2024, 6:29. [facility], CR, XR HAND RT MIN 3V, 10/07/2024, 2:13. FINDINGS: Bones: No fractures or dislocations. Carpal bones are normally aligned. No suspicious bony lesions. Soft tissues: No suspicious soft tissue calcifications. IMPRESSION: No acute bony abnormality. Dictated by: John Restrepo M.D. on 02/04/2025 at 11:33 Approved by: John Restrepo M.D. on 02/04/2025 at 11:33
[2025-02-04 11:19] LABS: Add Manual Diff / Slide Review NO; Hematocrit 50.0 % (41-53); Hemoglobin 16.4 g/dL (13.5-17.5); Lymphocytes Absolute Auto 2600 /uL (1100-4500); Mean Corpuscular HGB Conc 32.8 % (30-36); Mean Corpuscular Hemoglobin 25.8 PG (26-34); Mean Corpuscular Volume 78.6 fL (80-100); Platelet Count 385 X10^3/uL (150-400)
[2025-02-04 11:33] LABS: Lactate (Lactic Acid) 1.7 mmol/L (0.7-2.1)
[2025-02-04 11:35] LABS: Alanine Aminotransferase 32 IU/L (<50); Albumin 4.8 g/dL (3.5-5.0); Albumin Globulin Ratio 1.2 (1.0-2.8); Alkaline Phosphatase 63 U/L (38-126); Blood Urea Nitrogen 10 mg/dL (9-20); Calcium 9.5 mg/dL (8.4-10.2); Carbon Dioxide 24 mmol/L (22-32); Chloride 104 mmol/L (98-107); Estimated Glomerular Filt Rate > 60 mL/min (>60); Globulin 4.1 g/dL (1.7-4.1); Glucose 105 mg/dL (70-99); HEMOLYSIS < 15 (0-50); Potassium 4.3 mmol/L (3.4-5.1); Sodium 140 mmol/L (137-145); Total Protein 8.9 g/dL (6.3-8.2)
[2025-02-04] MEDS: KETOROLAC 30 MG/ML VIAL 15 MG IV (11:37)
[2025-02-04] MEDS: LACTATED RINGERS 1,000 ML 1000 ML IV (11:38)
[2025-02-04 11:41] LABS: Anisocytosis 1+
[2025-02-04 11:43] LABS: Microcytosis 1+
[2025-02-04] MEDS: PIPERACILLIN/TAZO 3.375 GM in SODIUM CHLORIDE 0.9% 100 ML IV (11:51)
[2025-02-04] MEDS: VANCOMYCIN 1,000 MG/200 ML PIGGYBACK 200 MG IV (12:40)
[2025-02-04 13:49] VITALS: BP 147/84; PULSE 68; RESP 16; O2SAT 99
--- NOTE | 2025-02-04 13:54 | DI.MRI.S_ITS ---
PROCEDURE: MR HAND RT WO/W CON INDICATIONS: L hand pain TECHNIQUE: Noncontrast coronal T1 spin echo and T2 fast spin echo with fat saturation, axial proton density fast spin echo and T2 fast spin echo with fat saturation, axial T1 spin echo with fat saturation, sagittal T1 spin echo and STIR through the hand and fingers. Post-contrast axial, coronal, and sagittal T1 spin echo through the hand and fingers. COMPARISON: [facility], CR, XR HAND RT MIN 3V, 02/04/2025, 11:04. FINDINGS: Image quality: Excellent. Bones: The bones are normally aligned, without marrow contusions or fractures. No intra-osseous lesions. Interphalangeal joint(s): The accessory and proper collateral ligaments appear intact. The volar plate demonstrates normal morphology. The extensor central slips appear intact on sagittal images. Metacarpophalangeal joint(s): The accessory and proper collateral ligaments appear intact, as well as the volar plate and adjacent deep transverse metacarpal ligaments. The sagittal bands of the extensor rothman appear normal. Extensor apparatus: The central slips insert normally on the middle phalangeal base. The conjoint and terminal tendons insert normally on the distal phalangeal bases. More proximal portions of the extensor tendons also appear normal. Flexor apparatus: There is increased signal surrounding the 5th flexor apparatus. Soft tissues: Generalized soft tissue edema of the dorsal lateral hand. IMPRESSION: Abnormal inflammatory change stranding the 5th digit flexor apparatus, consistent with tendinopathy. Generalized edema of the lateral dorsal hand. edema of the lateral dorsal hand. Dictated by: John Restrepo M.D. on 02/04/2025 at 17:23 Approved by: John Restrepo M.D. on 02/04/2025 at 17:25
[2025-02-04 14:11] VITALS: BMI 36.8
[2025-02-04 14:59] VITALS: BP 124/64; PULSE 62; RESP 16; TEMP 36.6; O2SAT 97
[2025-02-04] MEDS: methylPREDNISolone succ 40 MG/ML VIAL IV (16:27)
--- NOTE | 2025-02-04 16:47 | P.HP_ITS ---
History of Present Illness History of Present Illness Date Patient Seen: 02/04/25 Chief complaint: RT hand not moving Narrative: Chief complaint: Recurrent Painful swollen right hand but without fever or toxic symptoms highly suspicious for gout History of present illness: 02/04: 29-year-old male who 1 year ago had his 1st gallop flare is right great toe has a 2nd gout flare about 8 months ago in his ankle and Achilles tendon. Lately he has been having recurrent episodes of right hand swelling but without fever or toxic symptoms diagnosed as cellulitis and treated with antibiotics which did not effectively improve the redness and swelling. Patient has a history of elevated uric acid 11.5 but has not in treated for gout with any type of intervention or prevention of the treatment such as allopurinol or colchicine probenecid other than indomethacin as needed for gout flare Findings in the emergency department significant for right hand that is swollen however patient is not toxic febrile or sick at all. Patient has redness and swelling of the middle finger and index finger at the PIP and MCP joints of the 3rd and 4th ray as well as at the wrist. There is no streaking there is no epicondylar lymph and lymphadenopathy and no axillary lymphadenopathy Review of systems: No fever No chest pain palpitations No shortness for breath No fatigue No malaise Physical exam: Young male no acute distress right and is held up on a pillow Right hand as mentioned above in the history of present illness Assessment and plan * Joint inflammation of the wrist as well as the 2nd 3rd and 4th ray of the right hand highly suspicious for gout not suspicious for infection * Empiric Solu-Medrol 40 mg IV q.8 hours * Colchicine 0.6 mg p.o. b.i.d. * Reexamined in the morning DVT prophylaxis not indicated Code status: * Full code Disposition: * Observation and high likelihood of discharge in the morning Time based billing: * 55 minutes were involved in evaluation of this patient including [id number] evaluation physical examination discussion with emergency provider extensive review of previous office medical records [facility] Medical History Gout Ankle swelling Chronic ankle pain Bilateral Achilles tendonosis Lung mass Hyperglycemia Left ankle pain Achilles tendinitis of right lower extremity Decreased visual acuity Hearing loss (1997) Eczema (1997) Fractures (2009) Asthma (2004) Ankle pain Left wrist sprain Achilles tendinitis, left leg Surgical History Anesthesia History of orthopedic surgery History of tonsillectomy Family History Father Age: 55 Hypertension Grandfather Cancer Hypertension High cholesterol Grandmother Age: 79 Heart disease Hypertension High cholesterol Diabetes mellitus Sister Age: 36 Mental health problem Grandfather No problems noted. Grandmother No problems noted. Mother No problems noted. Sister No problems noted. Social History household members: spouse Smoking Status: Former smoker alcohol intake: current Meds Home Medications and Allergies Home Medications ?Medication ?Instructions ?Recorded ?Confirmed ?Type losartan 100 1 tab PO DAILY #90 tabs 05/0202/04/25 Rx mg-hydrochlorothiazide 25 mg tablet Allergies Allergy/AdvReac Type Severity Reaction Status Date / Time No Known Drug Allergies Allergy Verified 01/11/25 16:21 Exam Vital Signs (past 8 hours): - 02/04/25 11:00 02/04/25 13:49 02/04/25 14:59 Temperature 97.6 F 97.9 F Pulse Rate 81 68 62 Respiratory Rate 16 16 16 Blood Pressure 152/106 H 147/84 H 124/64 Pulse Oximetry 97 99 97 Oxygen Delivery Method Room Air Room Air Oxygen Delivery Method Room Air Objective Labs 02/04/25 11:10 02/04/25 11:10 Labs: Laboratory Results - last 24 hr 02/04/25 11:10 WBC 12.6 H RBC 6.37 H Hgb 16.4 Hct 50.0 MCV 78.6 L MCH 25.8 L MCHC 32.8 RDW 16.4 H Plt Count 385 Neut % (Auto) 67.1 Lymph % (Auto) 20.9 L [place] % (Auto) 9.1 Eos % (Auto) 2.4 Baso % (Auto) 0.5 Neut # (Auto) 8500 H Lymph # (Auto) 2600 [place] # (Auto) 1200 H Eos # (Auto) 300 Baso # (Auto) 100 RBC Morphology See below Anisocytosis 1+ H Microcytosis 1+ H ESR 1 Sodium 140 Potassium 4.3 Chloride 104 Carbon Dioxide 24 BUN 10 Creatinine 0.91 Estimated GFR > 60 BUN/Creatinine Ratio 11.0 Glucose 105 H Lactate 1.7 Calcium 9.5 Total Bilirubin 2.4 H AST 30 ALT 32 Alkaline Phosphatase 63 C-Reactive Protein 4.4 H Total Protein 8.9 H Albumin 4.8 Globulin 4.1 Albumin/Globulin Ratio 1.2 Assessment & Plan Time-Based Coding :: [TOTAL MINUTES] spent with patient and on the chart (including review of chart, obtaining history, exam, reviewing outside data, placing orders, documenting exam and treatment plan, and counseling patient) on [DATE]. Quality VTE Deep Vein Thrombosis/Pulmonary Embolism Present on Admission: No
--- NOTE | 2025-02-04 17:08 | PC.NURSE ---
pt admitted to rm 209 from ED aox4, right hand swollen and red up to mid forarm. pain meds given in er effective for pain. oriented to hospital and rm call light within reach.
[2025-02-04 18:15] LABS: Uric Acid 11.1 mg/dL (3.5-8.5)
[2025-02-04 20:00] VITALS: BP 149/96; PULSE 62; RESP 18; TEMP 36.6; O2SAT 99
[2025-02-04] MEDS: COLCHICINE 0.6 MG TABLET PO (20:59)
[2025-02-04] MEDS: CYCLOBENZAPRINE 10 MG TABLET PO (20:59)
[2025-02-05] MEDS: methylPREDNISolone succ 40 MG/ML VIAL IV ×2 (00:05→07:57)
[2025-02-05 05:42] LABS: Add Manual Diff / Slide Review NO; Hematocrit 47.3 % (41-53); Hemoglobin 15.7 g/dL (13.5-17.5); Lymphocytes Absolute Auto 1000 /uL (1100-4500); Mean Corpuscular HGB Conc 33.1 % (30-36); Mean Corpuscular Hemoglobin 26.1 PG (26-34); Mean Corpuscular Volume 78.8 fL (80-100); Platelet Count 378 X10^3/uL (150-400)
[2025-02-05 06:12] LABS: Anisocytosis 1+; Microcytosis 1+
[2025-02-05] MEDS: CYCLOBENZAPRINE 10 MG TABLET PO (07:57)
[2025-02-05] MEDS: COLCHICINE 0.6 MG TABLET PO (07:57)
[2025-02-05 08:04] VITALS: BP 149/96
[2025-02-05] MEDS: LOSARTAN 50 MG TABLET 100 MG PO (08:04)
--- NOTE | 2025-02-05 09:25 | P.DS_ITS ---
History of Present Illness History of Present Illness Date Patient Seen: 02/05/25 Chief complaint: RT hand not moving Narrative: Chief complaint: Recurrent Painful swollen right hand but without fever or toxic symptoms highly suspicious for gout History of present illness: 02/04: 29-year-old male who 1 year ago had his 1st gallop flare is right great toe has a 2nd gout flare about 8 months ago in his ankle and Achilles tendon. Lately he has been having recurrent episodes of right hand swelling but without fever or toxic symptoms diagnosed as cellulitis and treated with antibiotics which did not effectively improve the redness and swelling. Patient has a history of elevated uric acid 11.5 but has not in treated for gout with any type of intervention or prevention of the treatment such as allopurinol or colchicine probenecid other than indomethacin as needed for gout flare Findings in the emergency department significant for right hand that is swollen however patient is not toxic febrile or sick at all. Patient has redness and swelling of the middle finger and index finger at the PIP and MCP joints of the 3rd and 4th ray as well as at the wrist. There is no streaking there is no epicondylar lymph and lymphadenopathy and no axillary lymphadenopathy 02/05: Marked improvement in erythema Review of systems: No fever No chest pain palpitations No shortness for breath No fatigue No malaise Physical exam: Young male no acute distress right and is held up on a pillow Right hand as mentioned above in the history of present illness Assessment and plan Joint inflammation of the wrist as well as the 2nd 3rd and 4th ray of the right hand highly suspicious for gout not suspicious for infection * Five days of prednisone * Colchicine 0.6 mg p.o. b.i.d. * Start allopurinol in 1 week * Stop hydrochlorothiazide as this can increase frequency of gout attacks DVT prophylaxis not indicated Code status: * Full code Disposition: * Discharge to home Time based billing: * 35 minutes were involved in evaluation of this patient including [id number] evaluation physical examination discussion with emergency provider extensive review of previous office medical records Discharge Providers Provider Date of admission: 02/04/25 14:05 Discharge Date: 02/05/25 Primary care physician: Darien Schmitt MD Discharge provider: Calvin Larsen MD Exam Vital Signs (past 8 hours): - 02/05/25 08:04 Blood Pressure 149/96 H Oxygen Delivery Method Room Air Oxygen Flow Rate 0 Objective Labs 02/05/25 05:13 02/04/25 11:10 Labs: Laboratory Results - last 24 hr 02/04/25 02/05/25 11:10 05:13 WBC 12.6 H 9.2 RBC 6.37 H 6.01 H Hgb 16.4 15.7 Hct 50.0 47.3 MCV 78.6 L 78.8 L MCH 25.8 L 26.1 MCHC 32.8 33.1 RDW 16.4 H 16.5 H Plt Count 385 378 Neut % (Auto) 67.1 86.0 H Lymph % (Auto) 20.9 L 10.8 L [place] % (Auto) 9.1 2.6 L Eos % (Auto) 2.4 0.1 L Baso % (Auto) 0.5 0.5 Neut # (Auto) 8500 H 7900 H Lymph # (Auto) 2600 1000 L [place] # (Auto) 1200 H 200 Eos # (Auto) 300 0 Baso # (Auto) 100 100 Platelet Estimate Adequate on smear RBC Morphology See below See below Anisocytosis 1+ H 1+ H Microcytosis 1+ H 1+ H ESR 1 Sodium 140 Potassium 4.3 Chloride 104 Carbon Dioxide 24 BUN 10 Creatinine 0.91 Estimated GFR > 60 BUN/Creatinine Ratio 11.0 Glucose 105 H Lactate 1.7 Uric Acid 11.1 H Calcium 9.5 Total Bilirubin 2.4 H AST 30 ALT 32 Alkaline Phosphatase 63 C-Reactive Protein 4.4 H Total Protein 8.9 H Albumin 4.8 Globulin 4.1 Albumin/Globulin Ratio 1.2 PFSH Medical History Gout Ankle swelling Chronic ankle pain Bilateral Achilles tendonosis Lung mass Hyperglycemia Left ankle pain Achilles tendinitis of right lower extremity Decreased visual acuity Hearing loss (1997) Eczema (1997) Fractures (2009) Asthma (2004) Ankle pain Left wrist sprain Achilles tendinitis, left leg Surgical History Anesthesia History of orthopedic surgery History of tonsillectomy Family History Father Age: 55 Hypertension Grandfather Cancer Hypertension High cholesterol Grandmother Age: 79 Heart disease Hypertension High cholesterol Diabetes mellitus Sister Age: 36 Mental health problem Grandfather No problems noted. Grandmother No problems noted. Mother No problems noted. Sister No problems noted. Social History household members: spouse Smoking Status: Former smoker alcohol intake: current Discharge Plan Discharge Plan Patient Disposition: Home Discharge orders & Medications Prescriptions: New losartan 50 mg Tablet 100 mg PO DAILY Qty: 90 0RF colchicine 0.6 mg Tablet 0.6 mg PO BID Qty: 180 0RF oxycodone 5 mg Tablet 5 mg PO Q3H PRN (Reason: Pain, Moderate (4-6)) Qty: 15 0RF prednisone 20 mg tablet 20 mg PO DAILY Qty: 5 0RF allopurinol 300 mg tablet 300 mg PO DAILY Qty: 90 0RF Rx Instructions: Start on 02/11/2025 Discontinued losartan-hydrochlorothiazide 100-25 mg tablet 1 tab PO DAILY Qty: 90 3RF Follow up/Referrals: Darien Schmitt MD [Primary Care Provider, Family Practice] Visit Report/Discharge Packet Stand Alone Forms: Patient Portal/API, Stroke Signs & Symptoms Discharge Data Primary Care Provider: Darien Schmitt Attending Provider: Calvin Larsen Admit Date/Time: 02/04/25 14:05 Quality VTE Deep Vein Thrombosis/Pulmonary Embolism Present on Admission: No
--- NOTE | 2025-02-05 11:07 | PC.NURSE ---
Removed pt PIV, pt tolerated well. No belongings in safe, pharmacy, or drawer. All belongings with pt and pt spouse. Prescriptions sent to [facility]. Provided d/c edu to pt and spouse on diet, meds, activity. 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 [employer] was able to procure. Pt and spouse stated all questions answered. Pt escorted ambulatory with family by KRISTOFER Garcia to exit for ride home POV.
--- NOTE | 2025-02-05 11:36 | CM.DANOTE ---
Patient is a 29 yo male who was admitted OBS Status on 02/04/25 for Hand swelling and pain. Pt has [employer] for insurance and his PCP is Dr. Darien Schmitt. EMR was reviewed. Per MD, pt with swollen painful hand and hx of gout flare one year ago and his uric acid levels show gout flare and admitted for management but now medically stable to discharge today with outpt f/u. Per RN, pt ready for d/c but requesting Medical Excuse for Work letter. SW met bedside with pt and his and very young Dtr and they confirm they live at home in [place] and pt is active and independent at baseline but hx of medical complexities. Pt confirms he works but had to take today off while he was admitted and Work Excuse Letter provided for this week for light duty due to ongoing painful swollen hands although they have some improvement since admission. Pt and spouse deny any further discharge needs and spouse will transport pt home this morning. SANDEE Kiran
== END 2025-02-05 11:11 | disposition home or self-care (01) | DRG 554 ==
LOC: ED 11:10 → AC 14:57
PROVIDERS: Admitting Provider Internal Medicine; Emergency Provider Family Medicine; PCP Family Medicine; Referring Provider Family Medicine; Visit Provider Internal Medicine
DX: M10.9 Gout, unspecified (principal); Z87.891 Personal history of nicotine dependence
CPT/HCPCS: 36415; 73110; 73130; 73220; 80053; 83605; 84550; 85025; 85651; 86140; 87040; 96365; 96367; 96375; 99284; A9579; J1885; J2543; J2919; J3375; J7050; J7120